=== PATIENT | female | born 1970 | race Caucasian/White ===

== ENCOUNTER 2017-12-22 10:09 | Emergency (ER) | payer MEDICARE ==
[2017-12-22] MEDS ORDERED: PROVENTIL 2.5 MG/3 ML NEB IH ONE ×2 (10:36→10:51)
--- NOTE | 2017-12-22 10:53 | ERPHSYRPT ---
- History of Present Illness Time Seen by Provider: 12/22/17 10:16 Source: patient Patient Subjective Stated Complaint: increasing cough for two weeks. hx asthma. Triage Nursing Assessment: ambulated to room per self. audible wheezes heard throughout. skin w/d, color normal, resp slightly labored. denies fever Physician History: CC: coughing Hx: 47 y/o smoker with cough for two weeks. She has hx of DM, asthma. Son had flu. She uses nebs. Has prednisone at home but does not like to take it as her sugars increase. She takes Tujeo and sees [facility]. She is a pt of [facility]. No fever or chills. She has chronic pain syndrome. Allergies/Adverse Reactions: carisoprodol [From Soma] Allergy (Intermediate, Verified 12/22/17 10:26) codeine [Codeine] Allergy (Verified 12/22/17 10:26) cyclobenzaprine HCl [From Flexeril] Allergy (Verified 12/22/17 10:26) duloxetine [From Cymbalta] Allergy (Verified 12/22/17 10:26) morphine Allergy (Verified 12/22/17 10:26) Penicillins Allergy (Verified 12/22/17 10:26) Sulfa (Sulfonamide Antibiotics) [Sulfa(Sulfonamide Antibiotics)] Allergy ( Verified 12/22/17 10:26) glipizide Adverse Reaction (Verified 12/22/17 11:12) metformin Adverse Reaction (Verified 12/22/17 11:12) Home Medications: Albuterol 2.5 mg/3 ml Neb [Proventil 2.5 mg/3 ml Neb] 2.5 mg IH .PRN 05/16 [History] Lorazepam 1 mg [Ativan 1 MG] 1 mg PO BID 05/16/14 [History] Montelukast Sodium 10 mg [Singulair 10 MG] 10 mg PO DAILY 05/16/14 [History] Albuterol 8 gm Mdi Hfa [Ventolin Hfa MDI] 2 puff IH QID 11/21/16 [History] Clotrimazole Cream 30 gm [Lotrimin Cream 30 gm] 30 gm TP .PRN 11/21/16 [ History] Hydrocodone/APAP 10/325 mg [[place] 10/325 MG Tablet] 1 tab PO Q6H PRN PRN 11/21/16 [History] Omeprazole 20 MG [Prilosec 20 mg] 40 mg PO BID 11/21/16 [History] Prednisone 20 mg [Deltasone 20 mg] 20 mg PO DAILY 11/21/16 [History] Ferrous Sulfate 325 mg [Feosol 325 mg] 325 mg PO DAILY 12/22/17 [History] Fluticasone/Vilanterol [Breo Ellipta 200-25 Mcg INH] 1 ea IH DAILY 12/22/17 [ History] Insulin Glargine,Hum.rec.anlog [Toujeo Solostar] 32 units SQ DAILY 12/22/17 [ History] Lisinopril [Zestril] 2.5 mg PO DAILY 12/22/17 [History] Rosuvastatin Calcium [Rosuvastatin Calcium] 5 mg PO HS 12/22/17 [History] Venlafaxine HCl [Venlafaxine HCl ER] 75 mg PO DAILY 12/22/17 [History] Hx Tetanus, Diphtheria Vaccination/Date Given: No Hx Influenza Vaccination/Date Given: No Hx Pneumococcal Vaccination/Date Given: No - Review of Systems Constitutional: Fatigue, Malaise, No Fever, No Chills Eyes: No Symptoms Ears, Nose, & Throat: No Symptoms Respiratory: Cough, Wheezing Cardiac: No Chest Pain Abdominal/Gastrointestinal: No Abdominal Pain, No Nausea, No Vomiting Skin: No Rash Neurological: No Headache All Other Systems: Reviewed and Negative - Past Medical History Pertinent Past Medical History: Yes Neurological History: No Pertinent History ENT History: No Pertinent History Cardiac History: Hypertension Respiratory History: Asthma, COPD Endocrine Medical History: No Pertinent History, Diabetes Type II, Liver Disease Musculoskeletal History: Other GI Medical History: No Pertinent History History: No Pertinent History Psycho-Social History: No Pertinent History Female Reproductive Disorders: No Pertinent History Other Medical History: L SPINE FUSION 2010; R LE SURGERY AFTER WORK INJURY - Past Surgical History Past Surgical History: Yes Gastrointestinal: Cholecystectomy Musculoskeletal: Orthopedic Surgery Female Surgical History: Section, Tubal Ligation Other Surgical History: leg, back, 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 rt leg cadav. lumbar cadav bones - Social History Smoking Status: Current every day smoker How long have you smoked: 16 Exposure to second hand smoke: Yes Drug Use: none Patient Lives Alone: No Significant Family History: no pertinent family hx - Female History Hx Now: No - Nursing Vital Signs Nursing Vital Signs: Initial Vital Signs Temperature 98.4 F 12/22/17 10:16 Pulse Rate 92 H 12/22/17 10:16 Respiratory Rate 20 12/22/17 10:16 Blood Pressure 139/67 12/22/17 10:16 O2 Sat by Pulse Oximetry 92 L 12/22/17 10:16 Pain Scale Pain Intensity 0 - Physical Exam General Appearance: alert, obese, other (pleasant lady) Eye Exam: PERRL/EOMI Ears, Nose, Throat Exam: normal ENT inspection, moist mucous membranes Neck Exam: normal inspection, non-tender, supple Respiratory Exam: wheezing (scattered all lung [place]), No respiratory distress Cardiovascular Exam: regular rate/rhythm Gastrointestinal/Abdomen Exam: soft, No tenderness, No distention Neurologic Exam: alert, oriented x 3, cooperative, sensation nml, No motor deficits Skin Exam: warm, dry, No rash SpO2 Interpretation: normal SpO2: 95 Oxygen Delivery: Room Air - Course Nursing assessment & vital signs reviewed: Yes Ordered Tests: Active Orders 24 hr Category Date Time Status Accucheck STAT Care 12/22/17 10:36 Active IV Insertion STAT Care 12/22/17 11:32 Active CHEST 2 VIEWS (PA AND LAT) Stat Exams 12/22/17 11:04 Completed BLOOD CULTURE Stat Lab 12/22/17 11:31 Received CBC W DIFF Stat Lab 12/22/17 11:26 Completed CMP Stat Lab 12/22/17 11:31 Completed Glucose,Critical Care Urgent Lab 12/22/17 11:00 Completed Lactic Acid Stat Lab 12/22/17 11:04 Results MAGNESIUM Stat Lab 12/22/17 11:31 Completed VENOUS BLOOD GAS Urgent Lab 12/22/17 11:00 Completed Respiratory Nebulizer STAT RT 12/22/17 10:36 Active Respiratory Nebulizer STAT RT 12/22/17 11:45 Active Medication Summary Generic Name Dose Route Start Last Admin Trade Name Freq PRN Reason Stop Dose Admin Sodium Chloride 1,000 mls @ 200 mls/hr 12/22/17 11:15 12/22/17 11:41 Sodium Chloride 0.9% 1000 Ml IV 03/21/18 11:14 200 mls/hr .Q5H JAYME Administration Discontinued Medications Generic Name Dose Route Start Last Admin Trade Name Felisha PRN Reason Stop Dose Admin Albuterol Sulfate 2.5 mg 12/22/17 10:36 Proventil 2.5 Mg/3 Ml Neb IH 12/22/17 10:37 STAT ONE Albuterol Sulfate Confirm 12/22/17 10:51 Proventil 2.5 Mg/3 Ml Neb Administered 12/22/17 10:52 Dose 2.5 mg IH .STK-MED ONE Albuterol/Ipratropium 3 ml 12/22/17 11:45 Duoneb 0.5-3 Mg/3 Ml Neb IH 12/22/17 11:46 STAT ONE Albuterol/Ipratropium Confirm 12/22/17 11:45 Duoneb 0.5-3 Mg/3 Ml Neb Administered 12/22/17 11:46 Dose 3 ml IH .STK-MED ONE Insulin Aspart 10 unit 12/22/17 11:05 12/22/17 11:41 Novolog Insulin SQ 12/22/17 11:06 10 unit STAT ONE Administration Insulin Aspart Confirm 12/22/17 11:37 Novolog Insulin Administered 12/22/17 11:38 Dose 10 unit .ROUTE .STK-MED ONE Prednisone 40 mg 12/22/17 12:56 Deltasone 20 Mg PO 12/22/17 12:57 STAT ONE Lab/Rad Data: Laboratory Result Diagrams 12/22/17 11:26 12/22/17 11:31 Laboratory Results 12/22/17 12/22/17 12/22/17 Range/Units 11:40 11:31 11:26 WBC 6.8 (4.0-10.5) K/mm3 RBC 5.04 (4.1-5.4) M/mm3 Hgb 13.4 (12.0-16.0) gm/dl Hct 42.7 (35-47) % MCV 84.7 (78-100) fl MCH 26.6 (26-32) pg MCHC 31.4 L (32-36) g/dl RDW 13.5 (11.5-14.0) % Plt Count 218 (150-450) K/mm3 MPV 12.7 H (6-9.5) fl Gran % 67.1 H (36.0-66.0) % Lymphocytes % 24.8 (24.0-44.0) % Monocytes % 5.0 (0.0-12.0) % Eosinophils % 2.5 (0.00-5.0) % Basophils % 0.6 (0.0-0.4) % Basophils # 0.04 (0-0.4) VBG pH (7.32-7.42) VBG pCO2 at Pat Temp (42-55) mm/Hg VBG pO2 at Pat Temp (25-40) mm/Hg VBG HCO3 (22-28) meq/L VBG O2 Sat ([place]) (95-100) VBG Base Excess (-2.0-2.0) VBG Hemoglobin VBG Carboxyhemoglobin (0.0-6.9) % T HGB POC Potassium (3.5-5.1) Glucose 410 H (70-110) Sodium 136 (136-145) mEq/L Potassium 4.1 (3.5-5.1) mEq/L Chloride 97 L (98-107) mEq/L Carbon Dioxide 27.0 (21-32) mEq/L Anion Gap 15.7 H (5-15) MEQ/L BUN 9 (9-20) mg/dL Creatinine 1.03 (0.55-1.30) mg/dl Estimated GFR > 60 ML/MIN Lactic Acid (0.4-2.0) Calcium 9.0 (8.5-10.1) mg/dL Magnesium 1.7 L (1.8-2.4) mg/dL Total Bilirubin 0.40 (0.2-1.0) mg/dL AST 30 (15-37) U/L ALT 35 (12-78) U/L Alkaline Phosphatase 98 (46-116) U/L Serum Total Protein 7.7 (6.4-8.2) gm/dL Albumin 3.6 (3.4-5.0) g/dL Influenza Type A Ag NEGATIVE (NEGATIVE) Influenza Type B Ag NEGATIVE (NEGATIVE) RSV (PCR) NEGATIVE (Negative) 12/22/17 12/22/17 Range/Units 11:04 11:00 WBC (4.0-10.5) K/mm3 RBC (4.1-5.4) M/mm3 Hgb (12.0-16.0) gm/dl Hct (35-47) % MCV (78-100) fl MCH (26-32) pg MCHC (32-36) g/dl RDW (11.5-14.0) % Plt Count (150-450) K/mm3 MPV (6-9.5) fl Gran % (36.0-66.0) % Lymphocytes % (24.0-44.0) % Monocytes % (0.0-12.0) % Eosinophils % (0.00-5.0) % Basophils % (0.0-0.4) % Basophils # (0-0.4) VBG pH 7.39 (7.32-7.42) VBG pCO2 at Pat Temp 41 L (42-55) mm/Hg VBG pO2 at Pat Temp 40 (25-40) mm/Hg VBG HCO3 24.8 (22-28) meq/L VBG O2 Sat ([place]enzie) 82.4 L (95-100) VBG Base Excess -0.2 (-2.0-2.0) VBG Hemoglobin 14.0 VBG Carboxyhemoglobin 6.3 (0.0-6.9) % T HGB POC Potassium 4.0 (3.5-5.1) Glucose 417 H (70-110) Sodium (136-145) mEq/L Potassium (3.5-5.1) mEq/L Chloride (98-107) mEq/L Carbon Dioxide (21-32) mEq/L Anion Gap (5-15) MEQ/L BUN (9-20) mg/dL Creatinine (0.55-1.30) mg/dl Estimated GFR ML/MIN Lactic Acid 3.6 H (0.4-2.0) Calcium (8.5-10.1) mg/dL Magnesium (1.8-2.4) mg/dL Total Bilirubin (0.2-1.0) mg/dL AST (15-37) U/L ALT (12-78) U/L Alkaline Phosphatase (46-116) U/L Serum Total Protein (6.4-8.2) gm/dL Albumin (3.4-5.0) g/dL Influenza Type A Ag (NEGATIVE) Influenza Type B Ag (NEGATIVE) RSV (PCR) (Negative) - Progress Progress Note: 12/22/17 10:50 She has multiple allergies. She requests Z pack. She needs prednisone. Discussed smoking cessation. Sugar high. Will consult her endocrine on short term acute management at home while she is on steroids. 12/22/17 13:00 Pt declines admission here. Explained her sugar is high and likely to get higher. She has elevated lactic acid and is at risk for more severe infection. She understands but has family issues at home and plans to go home. Spoke to BUSINESS SUPPORT SPECIALIST Martha Lowe who advised with high sugar, steroids, increase Tajeo to 42 units daily and use humalog 15 units AC and as a sliding scale moderate. Instr given. Counseled pt/family regarding: lab results, diagnosis, need for follow-up, rad results, smoking cessation - Departure Time of Disposition: 13:01 Departure Disposition: Home Clinical Impression: Acute asthmatic bronchitis Condition: Fair Critical Care Time: No Referrals: LIV BARROSO [Primary Care Provider] - MARTHA LOWE BUSINESS SUPPORT SPECIALIST [NON-STAFF PHY W/O PRIVILEGES] - Instructions: Acute Bronchitis, Adult (DC), Hyperglycemia, Adult (DC), Cough, Adult (DC), Quitting Smoking Additional Instructions: Increase Tajeo to 42 units daily while on prednisone. Follow up with BUSINESS SUPPORT SPECIALIST Martha Lowe, diabetic in next week. Use 15 units humalog before each meal. Use humalog moderate sliding scale every 4 hours as needed. Rx zithromax- next dose tomorrow. Rx prednisone 40 mg daily for 5 days- next dose tomorrow. Use your albuterol nebs every 4 hours. Stop smoking. Return for problems or concerns. Prescriptions: Azithromycin 250 mg [Zithromax 250 MG TABLET] 1 tab PO DAILY #4 tablet Insulin Lispro [Humalog Kwikpen U-100] 0 unit SQ UD #1 insuln.pen
[2017-12-22] MEDS ORDERED: NovoLOG Insulin SQ ONE (11:05)
[2017-12-22 11:06] LABS: VBG BASE EXCESS -0.2 (-2.0-2.0); VBG CARBOXYHEMOGLOBIN 6.3 % T HGB (0.0-6.9); VBG HCO3- 24.8 meq/L (22-28); VBG O2 SATURATION 82.4 (95-100); VBG pH 7.39 (7.32-7.42)
[2017-12-22 11:07] LABS: Lactic Acid 3.6 (0.4-2.0)
[2017-12-22] MEDS ORDERED: Sodium Chloride 0.9% 1000 ML 1,000 ML IV SCH (11:15)
[2017-12-22 11:28] LABS: BASOPHIL % 0.6 % (0.0-0.4); Basophil (Absolute #) 0.04 (0-0.4); Eosinophil % 2.5 % (0.00-5.0); Eosinophil (Absolute #) 0.17 (0-0.5); Granulocyte Absolute (ANC) 4.58 (1.4-6.9); Granulocytes % 67.1 % (36.0-66.0); Hematocrit 42.7 % (35-47); Hemoglobin 13.4 gm/dl (12.0-16.0); Lymphocyte (Absolute #) 1.69 (1.0-4.6); Lymphocytes % 24.8 % (24.0-44.0); Mean Cell Volume 84.7 fl (78-100); Mean Corpuscular Hemoglobin 26.6 pg (26-32); Mean Corpuscular Hgb Concent. 31.4 g/dl (32-36); Mean Platelet Volume 12.7 fl (6-9.5); Monocyte (Absolute #) 0.34 (0.0-1.3); Platelet Count 218 K/mm3 (150-450); Red Blood Count 5.04 M/mm3 (4.1-5.4); Red Cell Distribution Width 13.5 % (11.5-14.0); White Blood Count 6.8 K/mm3 (4.0-10.5)
[2017-12-22] MEDS ORDERED: Sodium Chloride 0.9% 1000 ML 1,000 ML ONE (11:37)
[2017-12-22] MEDS ORDERED: NovoLOG Insulin ONE (11:37)
[2017-12-22] MEDS ORDERED: DUONEB 0.5-3 MG/3 ml Neb IH ONE ×2 (11:45)
--- NOTE | 2017-12-22 11:46 | XRAY ---
Indication: Short of breath and cough 2 weeks. Comparison: October 10, 2014. PA/lateral chest again demonstrates normal heart, lungs, and bony thorax with right base calcified granuloma. No new/acute findings.
[2017-12-22 11:59] LABS: ALBUMIN 3.6 g/dL (3.4-5.0); ALKALINE PHOSPHATASE 98 U/L (46-116); ANION GAP 15.7 MEQ/L (5-15); BLOOD UREA NITROGEN 9 mg/dL (9-20); CHLORIDE 97 mEq/L (98-107); Creatinine 1 1.03 mg/dl (0.55-1.30); EST GLOMERULAR FILTRATION RATE > 60 ML/MIN; Glucose 410 MG/DL (70-110); Potassium 4.1 mEq/L (3.5-5.1); SGOT/AST 30 U/L (15-37); SGPT/ALT 35 U/L (12-78); SODIUM 136 mEq/L (136-145); Total Protein 7.7 gm/dL (6.4-8.2)
[2017-12-22 12:35] VITALS: PULSE 89
[2017-12-22] MEDS ORDERED: DELTASONE 20 MG PO ONE (12:56)
[2017-12-22 12:59] LABS: INFLUENZA A NEGATIVE (NEGATIVE); INFLUENZA B NEGATIVE (NEGATIVE); RESPIRATORY SYNCTIAL VIRUS NEGATIVE (Negative)
[2017-12-22] MEDS ORDERED: Zithromax 250 MG TABLET PO ONE (13:02)
[2017-12-22] MEDS ORDERED: DELTASONE 20 MG ONE (13:03)
[2017-12-22] MEDS ORDERED: Zithromax 250 MG TABLET ONE (13:03)
[2017-12-22 13:30] VITALS: BP 129/72; O2SAT 99
== END 2017-12-22 13:30 | disposition home or self-care (01) ==
LOC: ED 10:09
DX: J45.909 Unspecified asthma, uncomplicated (principal); I10 Essential (primary) hypertension; E11.9 Type 2 diabetes mellitus without complications; Z79.899 Other long term (current) drug therapy
CPT/HCPCS: 36000; 36415; 71046; 80053; 82805; 82947; 82962; 83605; 83735; 85025; 87040; 87631; 94640; 96372; 99284; A9270-GY

== ENCOUNTER 2018-02-06 12:06 | Emergency (ER) | payer MEDICARE ==
[~2018-02-06 12:06] MED LIST: BENADRYL 50 MG/ML ONE; DUONEB 0.5-3 MG/3 ml Neb IH ONE; EPINEPHRINE 1MG/ML AMP ONE; Pepcid 20 MG VIAL IV ONE; Sodium Chloride 0.9% 1000 ML 1,000 ML ONE; solu-MEDROL 125 MG ONE
[2018-02-06] MEDS ORDERED: Sodium Chloride 0.9% 1000 ML 1,000 ML IV STA (12:14)
[2018-02-06] MEDS ORDERED: EPINEPHRINE 1MG/ML AMP IM ONE (12:14)
[2018-02-06] MEDS ORDERED: BENADRYL 50 MG/ML IV ONE (12:14)
[2018-02-06] MEDS ORDERED: PROVENTIL 2.5 MG/3 ML NEB IH ONE ×4 (12:14→14:19)
[2018-02-06] MEDS ORDERED: solu-MEDROL 125 MG IV ONE (12:14)
[2018-02-06] MEDS ORDERED: Pepcid 20 MG VIAL IV ONE (12:14)
[2018-02-06] MEDS ORDERED: DUONEB 0.5-3 MG/3 ml Neb IH ONE (12:14)
[2018-02-06] MEDS ORDERED: Zofran 4 MG/2 ML VIAL IV ONE (12:18)
[2018-02-06] MEDS ORDERED: Zofran 4 MG/2 ML VIAL ONE (12:20)
[2018-02-06 12:23] LABS: BASOPHIL % 0.3 % (0.0-0.4); Basophil (Absolute #) 0.03 (0-0.4); Eosinophil % 2.3 % (0.00-5.0); Eosinophil (Absolute #) 0.25 (0-0.5); Granulocyte Absolute (ANC) 6.72 (1.4-6.9); Granulocytes % 62.9 % (36.0-66.0); Hematocrit 43.9 % (35-47); Hemoglobin 14.5 gm/dl (12.0-16.0); Lymphocyte (Absolute #) 2.98 (1.0-4.6); Lymphocytes % 27.9 % (24.0-44.0); Mean Cell Volume 84.7 fl (78-100); Mean Platelet Volume 12.6 fl (6-9.5); Monocytes % 6.6 % (0.0-12.0); Platelet Count 243 K/mm3 (150-450); Red Blood Count 5.18 M/mm3 (4.1-5.4); Red Cell Distribution Width 13.8 % (11.5-14.0); White Blood Count 10.7 K/mm3 (4.0-10.5)
--- NOTE | 2018-02-06 12:23 | ERPHSYRPT ---
- History of Present Illness Time Seen by Provider: 02/06/18 12:14 Source: patient Physician History: CC: short of air Hx: 47 y/o patient of Dr Salas started buprenoprhine patch for first dose this AM. Later in AM began having trouble breathing, coughing, wheezing, nausea. No itching or rash. She feels like she can not breath. No chest pain. She had prior reaction to morphine. She has chronic pain syndrome. She has hx of diabetes Allergies/Adverse Reactions: carisoprodol [From Soma] Allergy (Intermediate, Verified 02/06/18 12:35) buprenorphine Allergy (Verified 02/06/18 12:35) codeine [Codeine] Allergy (Verified 02/06/18 12:35) cyclobenzaprine HCl [From Flexeril] Allergy (Verified 02/06/18 12:35) duloxetine [From Cymbalta] Allergy (Verified 02/06/18 12:35) morphine Allergy (Verified 02/06/18 12:35) Penicillins Allergy (Verified 02/06/18 12:35) Sulfa (Sulfonamide Antibiotics) [Sulfa(Sulfonamide Antibiotics)] Allergy ( Verified 02/06/18 12:35) glipizide Adverse Reaction (Verified 02/06/18 12:35) metformin Adverse Reaction (Verified 02/06/18 12:35) Home Medications: Albuterol 2.5 mg/3 ml Neb [Proventil 2.5 mg/3 ml Neb] 2.5 mg IH .PRN 05/16 [History] Lorazepam 1 mg [Ativan 1 MG] 1 mg PO BID 05/16/14 [History] Montelukast Sodium 10 mg [Singulair 10 MG] 10 mg PO DAILY 05/16/14 [History] Albuterol 8 gm Mdi Hfa [Ventolin Hfa MDI] 2 puff IH QID 11/21/16 [History] Clotrimazole Cream 30 gm [Lotrimin Cream 30 gm] 30 gm TP .PRN 11/21/16 [ History] Hydrocodone/APAP 10/325 mg [[place] 10/325 MG Tablet] 1 tab PO Q6H PRN PRN 11/21/16 [History] Omeprazole 20 MG [Prilosec 20 mg] 40 mg PO BID 11/21/16 [History] Ferrous Sulfate 325 mg [Feosol 325 mg] 325 mg PO DAILY 12/22/17 [History] Fluticasone/Vilanterol [Breo Ellipta 200-25 Mcg INH] 1 ea IH DAILY 12/22/17 [ History] Insulin Glargine,Hum.rec.anlog [Toujeo Solostar] 32 units SQ DAILY 12/22/17 [ History] Lisinopril [Zestril] 2.5 mg PO DAILY 12/22/17 [History] Rosuvastatin Calcium [Rosuvastatin Calcium] 5 mg PO HS 12/22/17 [History] Venlafaxine HCl [Venlafaxine HCl ER] 75 mg PO DAILY 12/22/17 [History] Hx Tetanus, Diphtheria Vaccination/Date Given: No Hx Influenza Vaccination/Date Given: No Hx Pneumococcal Vaccination/Date Given: No - Review of Systems Constitutional: No Fever, No Chills Eyes: No Symptoms Ears, Nose, & Throat: No Symptoms Respiratory: Cough, Dyspnea, Wheezing Cardiac: No Chest Pain Abdominal/Gastrointestinal: Nausea, Vomiting (dryheaves), No Diarrhea Skin: No Pruritis, No Rash Neurological: No Headache All Other Systems: Reviewed and Negative - Past Medical History Pertinent Past Medical History: Yes Neurological History: No Pertinent History ENT History: No Pertinent History Cardiac History: Hypertension Respiratory History: Asthma, COPD Endocrine Medical History: No Pertinent History, Diabetes Type II, Liver Disease Musculoskeletal History: Other GI Medical History: No Pertinent History History: No Pertinent History Psycho-Social History: No Pertinent History Female Reproductive Disorders: No Pertinent History Other Medical History: L SPINE FUSION 2010; R LE SURGERY AFTER WORK INJURY - Past Surgical History Past Surgical History: Yes Gastrointestinal: Cholecystectomy Musculoskeletal: Orthopedic Surgery Female Surgical History: Section, Tubal Ligation Other Surgical History: leg, back, 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 rt leg cadav. lumbar cadav bones - Social History Smoking Status: Current every day smoker How long have you smoked: 16 Exposure to second hand smoke: Yes Drug Use: none Patient Lives Alone: No Significant Family History: no pertinent family hx - Female History Hx Now: No - Nursing Vital Signs Nursing Vital Signs: Initial Vital Signs Temperature 97.4 F 04/06/18 12:15 Pulse Rate 82 02/06/18 12:15 Respiratory Rate 34 H 02/06/18 12:15 Blood Pressure 122/88 02/06/18 12:15 O2 Sat by Pulse Oximetry 100 02/06/18 12:15 Pain Scale Pain Intensity 0 - Physical Exam General Appearance: alert, obese, other (arrived coughing, wheezing, anxious) Eye Exam: PERRL/EOMI Ears, Nose, Throat Exam: normal ENT inspection, moist mucous membranes Neck Exam: normal inspection, non-tender, supple Respiratory Exam: respiratory distress, wheezing Cardiovascular Exam: regular rate/rhythm, No tachycardia Gastrointestinal/Abdomen Exam: soft, No tenderness, No distention Extremity Exam: normal inspection, normal range of motion, pedal edema (trace), No calf tenderness Neurologic Exam: alert, oriented x 3, cooperative, No motor deficits Skin Exam: warm, diaphoresis SpO2 Interpretation: normal SpO2: 98 Oxygen Delivery: Room Air - Course Nursing assessment & vital signs reviewed: Yes EKG Interpreted by Me: RATE (83), Sinus Rhythm, Left [place] Deviation, LAFB, Other (no change from prior tracing) Ordered Tests: Active Orders 24 hr Category Date Time Status Accucheck STAT Care 02/06/18 12:14 Active CO2 Monitoring STAT Care 02/06/18 12:25 Active Proration Clerk STAT Care 02/06/18 12:15 Active EKG-ER Only STAT Care 02/06/18 12:14 Active IV Insertion STAT Care 02/06/18 12:14 Active IV Insertion-2nd Peripheral STAT Care 02/06/18 12:25 Active Pulse Oximetry (ED) STAT Care 02/06/18 12:14 Active 1800 Calorie ADA Diet 02/06/18 Lunch Active CHEST 1 VIEW (PORTABLE) Stat Exams 02/06/18 12:14 Completed CBC W DIFF Stat Lab 02/06/18 12:21 Completed CMP Stat Lab 02/06/18 12:21 Completed Respiratory Nebulizer STAT RT 02/06/18 12:15 Completed Respiratory Nebulizer STAT RT 02/06/18 13:23 Active Medication Summary Discontinued Medications Generic Name Dose Route Start Last Admin Trade Name Freq PRN Reason Stop Dose Admin Albuterol Sulfate 2.5 mg 02/06/18 12:14 02/06/18 12:20 Proventil 2.5 Mg/3 Ml Neb IH 02/06/18 12:15 2.5 mg STAT ONE Administration Albuterol Sulfate Confirm 02/06/18 12:17 Proventil 2.5 Mg/3 Ml Neb Administered 02/06/18 12:18 Dose 2.5 mg IH .STK-MED ONE Albuterol Sulfate 2.5 mg 02/06/18 13:23 Proventil 2.5 Mg/3 Ml Neb IH 02/06/18 13:24 STAT ONE Albuterol Sulfate Confirm 02/06/18 14:19 Proventil 2.5 Mg/3 Ml Neb Administered 02/06/18 14:20 Dose 2.5 mg IH .STK-MED ONE Albuterol/Ipratropium 3 ml 02/06/18 12:14 02/06/18 12:10 Duoneb 0.5-3 Mg/3 Ml Neb IH 02/06/18 12:15 3 ml STAT ONE Administration Diphenhydramine HCl 50 mg 02/06/18 12:14 02/06/18 12:18 Benadryl 50 Mg/Ml IV 02/06/18 12:15 50 mg STAT ONE Administration Epinephrine HCl 0.3 mg 02/06/18 12:14 02/06/18 12:18 Epinephrine 1mg/Ml Amp IM 02/06/18 12:15 0.3 mg STAT ONE Administration Famotidine 20 mg 02/06/18 12:14 02/06/18 12:18 Pepcid 20 Mg Vial IV 02/06/18 12:15 20 mg STAT ONE Administration Sodium Chloride 1,000 mls @ 999 mls/hr 02/06/18 12:14 02/06/18 12:18 Sodium Chloride 0.9% 1000 Ml IV 02/06/18 13:14 999 mls/hr .Q1H1M STA Administration Methylprednisolone Sodium Succinate 125 mg 02/06/18 12:14 02/06/18 12:18 Solu-Medrol 125 Mg IV 02/06/18 12:15 125 mg STAT ONE Administration Ondansetron HCl 4 mg 02/06/18 12:18 02/06/18 12:20 Zofran 4 Mg/2 Ml Vial IV 02/06/18 12:19 4 mg STAT ONE Administration Ondansetron HCl Confirm 02/06/18 12:20 Zofran 4 Mg/2 Ml Vial Administered 02/06/18 12:21 Dose 4 mg .ROUTE .STK-MED ONE Lab/Rad Data: Laboratory Result Diagrams 02/06/18 12:21 02/06/18 12:21 Laboratory Results 02/06/18 02/06/18 Range/Units 12:21 12:21 WBC 10.7 H (4.0-10.5) K/mm3 RBC 5.18 (4.1-5.4) M/mm3 Hgb 14.5 (12.0-16.0) gm/dl Hct 43.9 (35-47) % MCV 84.7 (78-100) fl MCH 28.0 (26-32) pg MCHC 33.0 (32-36) g/dl RDW 13.8 (11.5-14.0) % Plt Count 243 (150-450) K/mm3 MPV 12.6 H (6-9.5) fl Gran % 62.9 (36.0-66.0) % Eos # (Auto) 0.25 (0-0.5) Absolute Lymphs (auto) 2.98 (1.0-4.6) Absolute Monos (auto) 0.70 (0.0-1.3) Lymphocytes % 27.9 (24.0-44.0) % Monocytes % 6.6 (0.0-12.0) % Eosinophils % 2.3 (0.00-5.0) % Basophils % 0.3 (0.0-0.4) % Absolute Granulocytes 6.72 (1.4-6.9) Basophils # 0.03 (0-0.4) Sodium 140 (137-145) mmol/L Potassium 3.9 (3.5-5.1) mmol/L Chloride 103 (98-107) mmol/L Carbon Dioxide 23 (22-30) mmol/L Anion Gap 17.1 H (5-15) MEQ/L BUN 9 (7-17) mg/dL Creatinine 0.57 (0.52-1.04) mg/dL Estimated GFR > 60.0 ML/MIN Glucose 203 H (74-106) mg/dL Calcium 9.7 (8.4-10.2) mg/dL Total Bilirubin 0.40 (0.2-1.3) mg/dL AST 36 (14-36) U/L ALT 30 (0-35) U/L Alkaline Phosphatase 88 (38-126) U/L Serum Total Protein 7.2 (6.3-8.2) g/dL Albumin 4.3 (3.5-5.0) g/dL - Progress Progress Note: 02/06/18 12:22 She has wheezing and dyspnea and vomiting. She feels this is allergic reaction. EPI IM, nebs, benadryl, pepcid, solu mdedrol, zofran given on arrival. Starting to improve. Buprenoprhine patch removed. 02/06/18 12:40 CXR: Portable apical lordotic chest again demonstrates normal heart, lungs, and bony thorax with incidental right base calcified granuloma. 02/06/18 13:24 She is resting and in no distress. She is hungry. She called a ride. Minimal wheeze residual. She appears to have some degree of sleep apnea with classic build, desats during sleep. ETCO2 35-45. Advised she see [employer] FIELD MANAGER [place] to arrange a sleep study. Will feed, repeat neb, and observe prior to release. 02/06/18 15:01 Ambulated well. Saturation good. Breathing easy. Wants to go home. Will release. Counseled pt/family regarding: lab results, diagnosis, need for follow-up, rad results, smoking cessation - Departure Time of Disposition: 15:01 Departure Disposition: Home Clinical Impression: acute asthma attack, Anxiety, Allergic reaction caused by a drug Condition: Fair Critical Care Time: No Referrals: LIV CHOUDHARY [Primary Care Provider] - Instructions: Asthma, Adult (DC), Obstructive Sleep Apnea, Adult (DC), Adverse Drug Reactions, Adult (DC) Additional Instructions: No driving today. No buprenorphine. Notifiy Dr Salas. Rx pepcid. Rx prednisone. Return for problems or concerns. You should get a sleep apnea test. Prescriptions: Famotidine 20 mg [Pepcid 20 MG] 1 tab PO BID #14 tablet Prednisone 20 mg [Deltasone 20 mg] 2 tab PO DAILY #10 tablet
--- NOTE | 2018-02-06 12:35 | XRAY ---
Indication: Short of breath. Comparison: December 22, 2017. Portable apical lordotic chest again demonstrates normal heart, lungs, and bony thorax with incidental right base calcified granuloma.
[2018-02-06 12:43] LABS: ALBUMIN 4.3 g/dL (3.5-5.0); ALKALINE PHOSPHATASE 88 U/L (38-126); ANION GAP 17.1 MEQ/L (5-15); BLOOD UREA NITROGEN 9 mg/dL (7-17); CHLORIDE 103 mmol/L (98-107); Calcium 9.7 mg/dL (8.4-10.2); Carbon Dioxide 23 mmol/L (22-30); Creatinine 1 0.57 mg/dL (0.52-1.04); Glucose 203 mg/dL (74-106); Potassium 3.9 mmol/L (3.5-5.1); SGOT/AST 36 U/L (14-36); SGPT/ALT 30 U/L (0-35); SODIUM 140 mmol/L (137-145); Total Protein 7.2 g/dL (6.3-8.2)
[2018-02-06 14:56] VITALS: BP 148/64; PULSE 95
[2018-02-06 15:02] VITALS: O2SAT 98
== END 2018-02-06 15:10 | disposition home or self-care (01) ==
LOC: ED 12:06
DX: J45.909 Unspecified asthma, uncomplicated (principal); F41.9 Anxiety disorder, unspecified; R11.2 Nausea with vomiting, unspecified; T40.4X5A Adverse effect of other synthetic narcotics, initial encounter; Z79.899 Other long term (current) drug therapy
CPT/HCPCS: 36000; 36415; 71045; 80053; 82962; 85025; 93005; 93041; 94250; 94640; 94770; 96360; 96374; 96375; 99284; J0171; J1200; J2405; J2930; A9270-GY

== ENCOUNTER 2018-07-25 14:51 | Emergency (ER) | payer MEDICARE ==
[2018-07-25 15:24] VITALS: O2SAT 99
[2018-07-25 16:04] VITALS: BP 106/58; PULSE 76
--- NOTE | 2018-07-25 16:23 | ERPHSYRPT ---
- History of Present Illness Time Seen by Provider: 07/25/18 16:18 Source: patient Exam Limitations: no limitations Patient Subjective Stated Complaint: stepped in a hole and twisted right ankle Triage Nursing Assessment: to room per w/c. skin w/d, color normal. right ankle and foot slightly swollen. normal color foot, warm to touch and good pedal pulse. Physician History: The patient is a 48-year-old obese white female complaining that she stepped in a hole causing her to twist her right ankle and foot today. She denies numbness or tingling. It hurts for her to walk on it. The ankle is swollen. Her past medical history is significant for GERD, asthma, COPD, high cholesterol , hypertension, and diabetes. Occurred: just prior to arrival Reason for Fall: tripped, fell from standing pos Injuries/Pain Location: lower extremity (right ankle) Loss of Consciousness: no loss of consciousness Quality: aching Severity of Pain-Max: moderate Severity of Pain-Current: moderate Modifying Factors: Improves With: nothing Associated Symptoms (Fall): trouble walking Allergies/Adverse Reactions: carisoprodol [From Soma] Allergy (Intermediate, Verified 07/25/18 15:07) buprenorphine Allergy (Verified 07/25/18 15:07) codeine [Codeine] Allergy (Verified 07/25/18 15:07) cyclobenzaprine HCl [From Flexeril] Allergy (Verified 07/25/18 15:07) duloxetine [From Cymbalta] Allergy (Verified 07/25/18 15:07) morphine Allergy (Verified 07/25/18 15:07) Penicillins Allergy (Verified 07/25/18 15:07) Sulfa (Sulfonamide Antibiotics) [Sulfa(Sulfonamide Antibiotics)] Allergy ( Verified 07/25/18 15:07) glipizide Adverse Reaction (Verified 07/25/18 15:07) metformin Adverse Reaction (Verified 07/25/18 15:07) Home Medications: Albuterol 2.5 mg/3 ml Neb [Proventil 2.5 mg/3 ml Neb] 2.5 mg IH .PRN 05/16 [History] Lorazepam 1 mg [Ativan 1 MG] 1 mg PO BID 05/16/14 [History] Montelukast Sodium 10 mg [Singulair 10 MG] 10 mg PO DAILY 05/16/14 [History] Albuterol 8 gm Mdi Hfa [Ventolin Hfa MDI] 2 puff IH QID 11/21/16 [History] Clotrimazole Cream 30 gm [Lotrimin Cream 30 gm] 30 gm TP .PRN 11/21/16 [ History] Hydrocodone/APAP 10/325 mg [[place] 10/325 MG Tablet] 1 tab PO Q6H PRN PRN 11/21/16 [History] Omeprazole 20 MG [Prilosec 20 mg] 40 mg PO BID 11/21/16 [History] Ferrous Sulfate 325 mg [Feosol 325 mg] 325 mg PO DAILY 12/22/17 [History] Fluticasone/Vilanterol [Breo Ellipta 200-25 Mcg INH] 1 ea IH DAILY 12/22/17 [ History] Insulin Glargine,Hum.rec.anlog [[place] Solostar] 32 units SQ DAILY 12/22/17 [ History] Lisinopril [Zestril] 2.5 mg PO DAILY 12/22/17 [History] Rosuvastatin Calcium 5 mg PO HS 12/22/17 [History] Venlafaxine HCl [Venlafaxine HCl ER] 75 mg PO DAILY 12/22/17 [History] Exenatide Microspheres [Bydureon Bcise] 2 mg IJ WEEKLY 07/25/18 [History] Fenofibrate Nanocrystallized [Fenofibrate] 145 mg PO DAILY 07/25/18 [History] [place]-3 Fatty Acids/Fish Oil [Fish Oil 1,000 mg Capsule] 1 ea PO DAILY 07/25/18 [History] Vitamin E 400 unit PO DAILY 07/25/18 [History] Hx Tetanus, Diphtheria Vaccination/Date Given: No Hx Influenza Vaccination/Date Given: No Hx Pneumococcal Vaccination/Date Given: No - Review of Systems Constitutional: No Fever, No Chills Eyes: No Symptoms Ears, Nose, & Throat: No Symptoms Respiratory: No Cough, No Dyspnea Cardiac: No Chest Pain, No Edema, No Syncope Abdominal/Gastrointestinal: No Abdominal Pain, No Nausea, No Vomiting, No Diarrhea Genitourinary Symptoms: No Dysuria Musculoskeletal: Fall, Injury, Joint Pain, Joint Swelling Skin: No Rash Neurological: No Dizziness, No Focal Weakness, No Sensory Changes Psychological: No Symptoms Endocrine: No Symptoms Hematologic/Lymphatic: No Symptoms Immunological/Allergic: No Symptoms All Other Systems: Reviewed and Negative - Past Medical History Pertinent Past Medical History: Yes Neurological History: No Pertinent History ENT History: No Pertinent History Cardiac History: Hypertension Respiratory History: Asthma, COPD Endocrine Medical History: No Pertinent History, Diabetes Type II, Liver Disease Musculoskeletal History: Other GI Medical History: No Pertinent History History: No Pertinent History Psycho-Social History: No Pertinent History Female Reproductive Disorders: No Pertinent History Other Medical History: L SPINE FUSION 2010; R LE SURGERY AFTER WORK INJURY - Past Surgical History Past Surgical History: Yes Gastrointestinal: Cholecystectomy Musculoskeletal: Orthopedic Surgery Female Surgical History: Section, Tubal Ligation Other Surgical History: leg, back, 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 rt leg cadav. lumbar cadav bones - Social History Smoking Status: Current every day smoker How long have you smoked: 19 Exposure to second hand smoke: Yes Drug Use: none Patient Lives Alone: No Significant Family History: no pertinent family hx - Female History Hx Now: No (Pt has hx of tubal ligation) - Nursing Vital Signs Nursing Vital Signs: Initial Vital Signs Temperature 97.8 F 07/25/18 15:01 Pulse Rate 88 07/25/18 15:01 Respiratory Rate 18 07/25/18 15:01 Blood Pressure 137/83 07/25/18 15:01 O2 Sat by Pulse Oximetry 99 07/25/18 15:01 Pain Scale Pain Intensity 7 - [place] Coma Score Best Eye Response ([place]): (4) open spontaneously Best Verbal Response ([place]): (5) oriented Best Motor Response ([place]): (6) obeys commands [place] Total: 15 - Physical Exam General Appearance: no apparent distress, alert Head Injury: no evidence of injury Eye Exam: PERRL/EOMI ENT Exam: airway nml Neck Exam: normal inspection, No tenderness Respiratory/Chest Exam: normal breath sounds, No chest tenderness, No respiratory distress Cardiovascular Exam: normal heart sounds, regular rate/rhythm Gastrointestinal Exam: soft, No tenderness, No distention, No guarding, No ecchymosis Rectal Exam: not done Back Exam: normal inspection, No vertebral tenderness Extremity Exam: swelling (right lateral malleolus), tenderness Neurologic Exam: alert, oriented x 3, cooperative, sensation nml, No motor deficits Skin Exam: normal color, warm, dry SpO2 Interpretation: normal SpO2: 99 Oxygen Delivery: Room Air - Radiology Exams Right Ankle X-ray Interpretation: Interpreted by me, Negative, No Fracture Right Foot X-ray Interpretation: Interpreted by me, Negative, No Fracture Ordered Tests: Active Orders 24 hr Category Date Time Status Cold Application STAT Care 07/25/18 15:03 Active ANKLE (3 VIEWS) Stat Exams 07/25/18 15:25 Taken FOOT (MINIMUM 3 VIEWS) Stat Exams 07/25/18 15:26 Taken - Departure Time of Disposition: 16:22 Departure Disposition: Home Clinical Impression: Right ankle sprain Condition: Stable Critical Care Time: No Referrals: LIV CHOUDHARY [Primary Care Provider] - Additional Instructions: You have a mild right ankle sprain and foot sprain. You may take the Vicodin you already her taking for the pain. Elevate your foot and ankle to keep the swelling down. Apply ice to the area 10-15 minutes at a time as needed. Use Alexis wrap as needed. Follow-up with your primary medical doctor as needed.
--- NOTE | 2018-07-25 22:14 | XRAY ---
Indication: Pain following injury. Comparison: None 3 views of the right ankle demonstrates lateral soft tissue swelling and small spurring of the medial malleolus and plantar calcaneus. No other bony, articular, or soft tissue abnormalities.
--- NOTE | 2018-07-25 22:14 | XRAY ---
Indication: Pain following injury. Comparison: None 3 nonweightbearing views of the right foot demonstrates small plantar heel spur. No other bony, articular, or soft tissue abnormalities.
== END 2018-07-25 16:35 | disposition home or self-care (01) ==
LOC: ED 14:51
DX: S93.401A Sprain of unspecified ligament of right ankle, initial encounter (principal); X50.1XXA Overexertion from prolonged static or awkward postures, initial encounter; Y93.9 Activity, unspecified; Z79.899 Other long term (current) drug therapy
CPT/HCPCS: 73610; 73630; 99284

== ENCOUNTER 2019-05-30 15:55 | Emergency (ER) | payer MEDICARE ==
[2019-05-30 16:26] VITALS: PULSE 82; O2SAT 97
--- NOTE | 2019-05-30 16:52 | ERPHSYRPT ---
- History of Present Illness Time Seen by Provider: 05/30/19 16:49 Patient Subjective Stated Complaint: FEVER, DIARRHEA, ABDOMINAL PAIN, HIGH/LOW BLOOD SUGARS. Triage Nursing Assessment: ALERT & ORIENTED X 3. AMBULATED TO ROOM. BREATHING NONLABORED. SKIN ELASTIC. SKIN TONE WNL. MOUTH MOIST PINK. Physician History: 48-year-old female with significant past medical history of type 2 diabetes mellitus came to the emergency room with 2 days history of fever, chills and diarrhea. Patient is also complaining of generalized weakness, malaise and muscle aches. Timing/Duration: today Severity: moderate Associated Symptoms: fever, loss of appetite, malaise Allergies/Adverse Reactions: carisoprodol [From Soma] Allergy (Intermediate, Verified 07/25/18 15:07) buprenorphine Allergy (Verified 07/25/18 15:07) codeine [Codeine] Allergy (Verified 07/25/18 15:07) cyclobenzaprine HCl [From Flexeril] Allergy (Verified 07/25/18 15:07) duloxetine [From Cymbalta] Allergy (Verified 07/25/18 15:07) morphine Allergy (Verified 07/25/18 15:07) Penicillins Allergy (Verified 07/25/18 15:07) Sulfa (Sulfonamide Antibiotics) [Sulfa(Sulfonamide Antibiotics)] Allergy ( Verified 07/25/18 15:07) glipizide Adverse Reaction (Verified 07/25/18 15:07) metformin Adverse Reaction (Verified 07/25/18 15:07) Home Medications: Albuterol 2.5 mg/3 ml Neb [Proventil 2.5 mg/3 ml Neb] 2.5 mg IH .PRN 05/16 [History] Lorazepam 1 mg [Ativan 1 MG] 1 mg PO BID 05/16/14 [History] Montelukast Sodium 10 mg [Singulair 10 MG] 10 mg PO DAILY 05/16/14 [History] Albuterol 8 gm Mdi Hfa [Ventolin Hfa MDI] 2 puff IH QID 11/21/16 [History] Hydrocodone/APAP 10/325 mg [[place] 10/325 MG Tablet] 1 tab PO Q6H PRN PRN 11/21/16 [History] Ferrous Sulfate 325 mg [Feosol 325 mg] 325 mg PO TID 12/22/17 [History] Fluticasone/Vilanterol [Breo Ellipta 200-25 Mcg INH] 1 ea IH DAILY 12/22/17 [ History] Lisinopril [Zestril] 2.5 mg PO DAILY 12/22/17 [History] [place]-3 Fatty Acids/Fish Oil [Fish Oil 1,000 mg Capsule] 1 ea PO QID 07/25/18 [ History] Vitamin E 400 unit PO BID 07/25/18 [History] Dulaglutide [Trulicity] 0.75 mg SQ UD 05/30/19 [History] Hx Tetanus, Diphtheria Vaccination/Date Given: Yes Hx Influenza Vaccination/Date Given: Yes Hx Pneumococcal Vaccination/Date Given: Yes - Review of Systems Constitutional: No Fever, No Chills Eyes: No Symptoms Ears, Nose, & Throat: No Symptoms Respiratory: No Cough, No Dyspnea Cardiac: No Chest Pain, No Edema, No Syncope Abdominal/Gastrointestinal: Diarrhea, No Abdominal Pain, No Nausea, No Vomiting Genitourinary Symptoms: No Dysuria Musculoskeletal: No Back Pain, No Neck Pain Skin: No Rash Neurological: No Dizziness, No Focal Weakness, No Sensory Changes Psychological: No Symptoms Endocrine: No Symptoms All Other Systems: Reviewed and Negative - Past Medical History Pertinent Past Medical History: Yes Neurological History: No Pertinent History ENT History: No Pertinent History Cardiac History: Hypertension Respiratory History: Asthma, COPD Endocrine Medical History: No Pertinent History, Diabetes Type II, Liver Disease Musculoskeletal History: Other GI Medical History: No Pertinent History History: No Pertinent History Psycho-Social History: No Pertinent History Female Reproductive Disorders: No Pertinent History Other Medical History: L SPINE FUSION 2010; R LE SURGERY AFTER WORK INJURY - Past Surgical History Past Surgical History: Yes Gastrointestinal: Cholecystectomy Musculoskeletal: Orthopedic Surgery Female Surgical History: Section, Tubal Ligation Other Surgical History: 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 rt leg cadav. lumbar cadav bones - Social History Smoking Status: Current every day smoker How long have you smoked: 20 YRS Exposure to second hand smoke: No Drug Use: none Patient Lives Alone: No Significant Family History: no pertinent family hx - Female History Hx Now: No - Nursing Vital Signs Nursing Vital Signs: Initial Vital Signs Temperature 99.3 F 05/30/19 15:56 Pulse Rate 82 05/30/19 15:56 Respiratory Rate 16 05/30/19 15:56 Blood Pressure 133/79 05/30/19 15:56 O2 Sat by Pulse Oximetry 97 05/30/19 15:56 Pain Scale Pain Intensity 7 - Physical Exam General Appearance: no apparent distress, alert Eye Exam: PERRL/EOMI, eyes nml inspection Ears, Nose, Throat Exam: normal ENT inspection, TMs normal, pharynx normal, moist mucous membranes Neck Exam: normal inspection, non-tender, supple, full range of motion Respiratory Exam: normal breath sounds, lungs clear, No respiratory distress Cardiovascular Exam: regular rate/rhythm, normal heart sounds, normal peripheral pulses Gastrointestinal/Abdomen Exam: soft, normal bowel sounds, No tenderness, No mass Back Exam: normal inspection, normal range of motion, No CVA tenderness, No vertebral tenderness Extremity Exam: normal inspection, normal range of motion, pelvis stable Neurologic Exam: alert, oriented x 3, cooperative, normal mood/affect, nml cerebellar function, nml station & gait, sensation nml, No motor deficits Skin Exam: normal color, warm, dry, No rash Lymphatic Exam: No adenopathy SpO2: 97 - Course Nursing assessment & vital signs reviewed: Yes Ordered Tests: Active Orders 24 hr Category Date Time Status CBC W DIFF Stat Lab 05/30/19 17:08 Completed CMP Stat Lab 05/30/19 17:08 Completed CULTURE,URINE Stat Lab 05/30/19 17:29 Received Lactic Acid Urgent Lab 05/30/19 16:46 Results MAGNESIUM Stat Lab 05/30/19 17:08 Completed UA W/RFX UR CULTURE Stat Lab 05/30/19 17:29 Completed Medication Summary Discontinued Medications Generic Name Dose Route Start Last Admin Trade Name Freq PRN Reason Stop Dose Admin Ciprofloxacin 500 mg 05/30/19 17:45 Cipro 500 Mg PO 05/30/19 17:46 BID STA Sodium Chloride 1,000 mls @ 999 mls/hr 05/30/19 16:46 05/30/19 17:07 Sodium Chloride 0.9% 1000 Ml IV 05/30/19 17:46 999 mls/hr .Q1H1M STA Administration Sodium Chloride Confirm 05/30/19 17:04 Sodium Chloride 0.9% 1000 Ml Administered 05/30/19 17:05 Dose 1,000 mls @ ud .ROUTE .K-MED ONE Lab/Rad Data: Laboratory Result Diagrams 05/30/19 17:08 05/30/19 17:08 Laboratory Results 05/30/19 05/30/19 05/30/19 Range/Units 17:29 17:08 17:08 WBC 6.6 (4.0-10.5) K/mm3 RBC 5.19 (4.1-5.4) M/mm3 Hgb 14.4 (12.0-16.0) gm/dl Hct 43.9 (35-47) % MCV 84.6 (78-100) fl MCH 27.7 (26-32) pg MCHC 32.8 (32-36) g/dl RDW 13.5 (11.5-14.0) % Plt Count 158 (150-450) K/mm3 MPV 12.5 H (6-9.5) fl Gran % 67.5 H (36.0-66.0) % Eos # (Auto) 0.10 (0-0.5) Absolute Lymphs (auto) 1.63 (1.0-4.6) Absolute Monos (auto) 0.39 (0.0-1.3) Lymphocytes % 24.8 (24.0-44.0) % Monocytes % 5.9 (0.0-12.0) % Eosinophils % 1.5 (0.00-5.0) % Basophils % 0.3 (0.0-0.4) % Absolute Granulocytes 4.43 (1.4-6.9) Basophils # 0.02 (0-0.4) Sodium 139 (137-145) mmol/L Potassium 3.8 (3.5-5.1) mmol/L Chloride 103 (98-107) mmol/L Carbon Dioxide 28 (22-30) mmol/L Anion Gap 11.9 (5-15) MEQ/L BUN 5 L (7-17) mg/dL Creatinine 0.57 (0.52-1.04) mg/dL Estimated GFR > 60.0 ML/MIN Glucose 231 H (74-106) mg/dL Lactic Acid (0.4-2.0) Calcium 9.1 (8.4-10.2) mg/dL Magnesium 1.6 (1.6-2.3) mg/dL Total Bilirubin 0.40 (0.2-1.3) mg/dL AST 52 H (14-36) U/L ALT 47 H (0-35) U/L Alkaline Phosphatase 90 (38-126) U/L Serum Total Protein 7.1 (6.3-8.2) g/dL Albumin 4.0 (3.5-5.0) g/dL Urine Color YELLOW (YELLOW) Urine Appearance SLIGHTLY CLOUDY (CLEAR) Urine pH 5.0 (5-6) Ur Specific [place] 1.019 (1.005-1.025) Urine Protein 100 (Negative) Urine Ketones NEGATIVE (NEGATIVE) Urine Blood NEGATIVE (0-5) [place]/ul Urine Nitrite POSITIVE (NEGATIVE) Urine Bilirubin NEGATIVE (NEGATIVE) Urine Urobilinogen NEGATIVE (0-1) mg/dL Ur Leukocyte Esterase TRACE (NEGATIVE) Urine WBC (Auto) 26-50 (0-5) /HPF Urine RBC (Auto) NONE (0-2) /HPF U Epithel Cells (Auto) RARE (FEW) /HPF Urine Bacteria (Auto) MODERATE (NEGATIVE) /HPF Urine Mucus (Auto) SLIGHT (NEGATIVE) /HPF Urine Culture Reflexed YES (NO) Urine Glucose 150 (NEGATIVE) mg/dL 05/30/19 Range/Units 16:46 WBC (4.0-10.5) K/mm3 RBC (4.1-5.4) M/mm3 Hgb (12.0-16.0) gm/dl Hct (35-47) % MCV (78-100) fl MCH (26-32) pg MCHC (32-36) g/dl RDW (11.5-14.0) % Plt Count (150-450) K/mm3 MPV (6-9.5) fl Gran % (36.0-66.0) % Eos # (Auto) (0-0.5) Absolute Lymphs (auto) (1.0-4.6) Absolute Monos (auto) (0.0-1.3) Lymphocytes % (24.0-44.0) % Monocytes % (0.0-12.0) % Eosinophils % (0.00-5.0) % Basophils % (0.0-0.4) % Absolute Granulocytes (1.4-6.9) Basophils # (0-0.4) Sodium (137-145) mmol/L Potassium (3.5-5.1) mmol/L Chloride (98-107) mmol/L Carbon Dioxide (22-30) mmol/L Anion Gap (5-15) MEQ/L BUN (7-17) mg/dL Creatinine (0.52-1.04) mg/dL Estimated GFR ML/MIN Glucose (74-106) mg/dL Lactic Acid 1.9 (0.4-2.0) Calcium (8.4-10.2) mg/dL Magnesium (1.6-2.3) mg/dL Total Bilirubin (0.2-1.3) mg/dL AST (14-36) U/L ALT (0-35) U/L Alkaline Phosphatase (38-126) U/L Serum Total Protein (6.3-8.2) g/dL Albumin (3.5-5.0) g/dL Urine Color (YELLOW) Urine Appearance (CLEAR) Urine pH (5-6) Ur Specific [place] (1.005-1.025) Urine Protein (Negative) Urine Ketones (NEGATIVE) Urine Blood (0-5) [place]/ul Urine Nitrite (NEGATIVE) Urine Bilirubin (NEGATIVE) Urine Urobilinogen (0-1) mg/dL Ur Leukocyte Esterase (NEGATIVE) Urine WBC (Auto) (0-5) /HPF Urine RBC (Auto) (0-2) /HPF U Epithel Cells (Auto) (FEW) /HPF Urine Bacteria (Auto) (NEGATIVE) /HPF Urine Mucus (Auto) (NEGATIVE) /HPF Urine Culture Reflexed (NO) Urine Glucose (NEGATIVE) mg/dL - Progress Progress: improved Counseled pt/family regarding: lab results, diagnosis, need for follow-up - Departure Departure Disposition: Home Clinical Impression: Enteritis due to adenovirus, UTI (lower urinary tract infection) Type 2 diabetes mellitus Qualifiers: Diabetes mellitus jail insulin use: with jail use Diabetes mellitus complication status: with hyperglycemia Qualified Code(s): E11.65 - Type 2 diabetes mellitus with hyperglycemia Condition: Stable Critical Care Time: No Referrals: LIV CHOUDHARY [Primary Care Provider] - Instructions: Diarrhea in Adolescents and Adults, Fever, Adult (DC), Urinary Tract Infection, Adult (DC) Additional Instructions: Discharge/Care Plan ROBERTA INGRAM was seen on 05/30/19 in the Emergency Room. The patient was counseled regarding Diagnosis,Lab results, Imaging studies, need for follow up and when to return to the Emergency Room. Prescriptions given: Discharge Note I have spoken with the patient and/or caregivers. I have explained the patient' s condition, diagnosis and treatment plan based on the information available to me at this time. I have answered the patient's and/or caregiver's questions and addressed any concerns. The patient and/or caregivers have as good understanding of the patient's diagnosis, condition and treatment plan as can be expected at this point. The vital signs have been stable. The patient's condition is stable and appropriate for discharge from the emergency department. The patient will pursue further outpatient evaluation with the primary care physician or other designated or consulting physician as outlined in the discharge instructions. The patient and/or caregivers are agreeable to this plan of care and follow-up instructions have been explained in detail. The patient and/or caregivers have received these instruction. The patient/and or caregivers are aware that any significant change in condition or worsening of symptoms should prompt an immediate return to this or the closest emergency department or call 911. Prescriptions: Ciprofloxacin [Cipro 500 MG] 500 mg PO BIDAC #20 tablet
[2019-05-30] MEDS ORDERED: Sodium Chloride 0.9% 1000 ML 1,000 ML ONE (17:04)
[2019-05-30] MEDS: Sodium Chloride 0.9% 1000 ML 1,000 ML IV STA (17:07)
[2019-05-30 17:09] LABS: Lactic Acid 1.9 (0.4-2.0)
[2019-05-30 17:14] LABS: BASOPHIL % 0.3 % (0.0-0.4); Basophil (Absolute #) 0.02 (0-0.4); Eosinophil % 1.5 % (0.00-5.0); Granulocyte Absolute (ANC) 4.43 (1.4-6.9); Granulocytes % 67.5 % (36.0-66.0); Hematocrit 43.9 % (35-47); Hemoglobin 14.4 gm/dl (12.0-16.0); Lymphocyte (Absolute #) 1.63 (1.0-4.6); Lymphocytes % 24.8 % (24.0-44.0); Mean Cell Volume 84.6 fl (78-100); Mean Corpuscular Hemoglobin 27.7 pg (26-32); Mean Corpuscular Hgb Concent. 32.8 g/dl (32-36); Mean Platelet Volume 12.5 fl (6-9.5); Monocyte (Absolute #) 0.39 (0.0-1.3); Monocytes % 5.9 % (0.0-12.0); Platelet Count 158 K/mm3 (150-450); Red Blood Count 5.19 M/mm3 (4.1-5.4); Red Cell Distribution Width 13.5 % (11.5-14.0); White Blood Count 6.6 K/mm3 (4.0-10.5)
[2019-05-30 17:31] LABS: ALKALINE PHOSPHATASE 90 U/L (38-126); ANION GAP 11.9 MEQ/L (5-15); BLOOD UREA NITROGEN 5 mg/dL (7-17); CHLORIDE 103 mmol/L (98-107); Calcium 9.1 mg/dL (8.4-10.2); Carbon Dioxide 28 mmol/L (22-30); Creatinine 1 0.57 mg/dL (0.52-1.04); Glucose 231 mg/dL (74-106); MAGNESIUM 1.6 mg/dL (1.6-2.3); Potassium 3.8 mmol/L (3.5-5.1); SGOT/AST 52 U/L (14-36); SGPT/ALT 47 U/L (0-35); SODIUM 139 mmol/L (137-145); Total Protein 7.1 g/dL (6.3-8.2)
[2019-05-30 17:38] LABS: Appearance SLIGHTLY CLOUDY (CLEAR); Bacteria MODERATE /HPF (NEGATIVE); Bilirubin NEGATIVE (NEGATIVE); Blood NEGATIVE Ery/ul (0-5); Epithelial Cells RARE /HPF (FEW); Glucose 150 mg/dL (NEGATIVE); Ketones NEGATIVE (NEGATIVE); Leukocyte Esterase TRACE (NEGATIVE); Mucus SLIGHT /HPF (NEGATIVE); Nitrite POSITIVE (NEGATIVE); Protein,Urine Dip 100 (Negative); Specific Gravity 1.019 (1.005-1.025); Urobilinogen NEGATIVE mg/dL (0-1); WBC 26-50 /HPF (0-5)
[2019-05-30] MEDS ORDERED: Cipro 500 MG ONE (17:49)
[2019-05-30] MEDS: Cipro 500 MG PO STA (17:50)
[2019-05-30 18:02] VITALS: BP 122/66
== END 2019-05-30 17:59 | disposition home or self-care (01) ==
LOC: ED 15:55
DX: A08.2 Adenoviral enteritis (principal); N39.0 Urinary tract infection, site not specified; E11.65 Type 2 diabetes mellitus with hyperglycemia; I10 Essential (primary) hypertension; J44.9 Chronic obstructive pulmonary disease, unspecified; K76.9 Liver disease, unspecified; Z79.899 Other long term (current) drug therapy
CPT/HCPCS: 36415; 80053; 81001; 83605; 83735; 85025; 87077; 87086; 87186; 96360; 99284; A9270-GY

== ENCOUNTER 2020-12-03 11:27 | Emergency (ER) | payer MEDICARE ==
[2020-12-03] MEDS ORDERED: TORAdol 30 mg Injection IV ONE (12:01)
[2020-12-03] MEDS ORDERED: TORAdol 30 mg Injection ONE (12:04)
--- NOTE | 2020-12-03 12:05 | ERPHSYRPT ---
- History of Present Illness Time Seen by Provider: 12/03/20 12:03 Historian: patient Exam Limitations: no limitations Patient Subjective Stated Complaint: Abdominal pain Triage Nursing Assessment: Patient ambulated back to ED and transferred self to bed. Patient A+O x 3. Patient's skin pink, warm and dry. Patient complains of RUQ pain intermittent sharp pain that has gotten worse over the past week. Patient denies N/V or diarrhea. Patient states the pain is worse when taking a deep breath or coughing. Abdomen soft and round with BS X 4. Physician History: Abdominal pain for 1 week right upper quadrant area. Patient complains of RUQ pain intermittent sharp pain that has gotten worse over the past week. Patient denies N/V or diarrhea. Patient states the pain is worse when taking a deep breath or coughing. Timing/Duration: week(s) (one week), gradual onset Activities at Onset: none Quality: cramping Abdominal Pain Onset Location: RUQ Pain Radiation: no radiation Severity of Pain-Max: mild Severity of Pain-Current: mild Modifying Factors: Improves With: nothing Associated Symptoms: denies symptoms, No shortness of breath Allergies/Adverse Reactions: carisoprodol [From Soma] Allergy (Intermediate, Verified 12/03/20 11:35) buprenorphine Allergy (Verified 12/03/20 11:35) codeine [Codeine] Allergy (Verified 12/03/20 11:35) cyclobenzaprine HCl [From Flexeril] Allergy (Verified 12/03/20 11:35) duloxetine [From Cymbalta] Allergy (Verified 12/03/20 11:35) morphine Allergy (Verified 12/03/20 11:35) Penicillins Allergy (Verified 12/03/20 11:35) Sulfa (Sulfonamide Antibiotics) [Sulfa(Sulfonamide Antibiotics)] Allergy (Verified 12/03/20 11:35) glipizide Adverse Reaction (Verified 12/03/20 11:35) metformin Adverse Reaction (Verified 12/03/20 11:35) Home Medications: Albuterol 2.5 mg/3 ml Neb [Proventil 2.5 mg/3 ml Neb] 2.5 mg IH .PRN 05/16/14 [History] Lorazepam 1 mg [Ativan 1 MG] 1 mg PO BID 05/16/14 [History] Montelukast Sodium 10 mg [Singulair 10 MG] 10 mg PO DAILY 05/16/14 [History] Albuterol 8 gm Mdi Hfa [Ventolin Hfa MDI] 2 puff IH QID 11/21/16 [History] Hydrocodone/APAP 10/325 mg [[place] 10/325 MG Tablet] 1 tab PO Q6H PRN PRN 11/21/16 [History] Ferrous Sulfate 325 mg [Feosol 325 mg] 325 mg PO TID 12/22/17 [History] Fluticasone/Vilanterol [Breo Ellipta 200-25 Mcg INH] 1 ea IH DAILY 12/22/17 [History] lisinopriL [Zestril] 2.5 mg PO DAILY 12/22/17 [History] [place]-3 Fatty Acids/Fish Oil [Fish Oil 1,000 mg Capsule] 1 ea PO QID 07/25/18 [History] Vitamin E 400 unit PO BID 07/25/18 [History] Dulaglutide [Trulicity] 0.75 mg SQ UD 05/30/19 [History] Hx Tetanus, Diphtheria Vaccination/Date Given: Yes Hx Influenza Vaccination/Date Given: No Hx Pneumococcal Vaccination/Date Given: Yes Immunizations Up to Date: Yes Travel Risk - International Travel Have you traveled outside of the country in past 3 weeks: No - Coronavirus Screening Are you exhibiting any of the following symptoms?: No Close contact with a COVID-19 positive Pt in past 14-21 Days: No - Review of Systems Constitutional: No Fever, No Chills Eyes: No Symptoms Ears, Nose, & Throat: No Symptoms Respiratory: No Cough, No Dyspnea Cardiac: No Chest Pain, No Edema, No Syncope Abdominal/Gastrointestinal: Abdominal Pain, No Nausea, No Vomiting, No Diarrhea Genitourinary Symptoms: No Dysuria Musculoskeletal: No Back Pain, No Neck Pain Skin: No Rash Neurological: No Dizziness, No Focal Weakness, No Sensory Changes Psychological: No Symptoms Endocrine: No Symptoms All Other Systems: Reviewed and Negative - Past Medical History Pertinent Past Medical History: Yes Neurological History: No Pertinent History ENT History: No Pertinent History Cardiac History: Hypertension Respiratory History: Asthma, COPD Endocrine Medical History: No Pertinent History, Diabetes Type II, Liver Disease Musculoskeletal History: Other GI Medical History: No Pertinent History History: No Pertinent History Psycho-Social History: No Pertinent History Female Reproductive Disorders: No Pertinent History Other Medical History: L SPINE FUSION 2010; R LE SURGERY AFTER WORK INJURY - Past Surgical History Past Surgical History: Yes Gastrointestinal: Cholecystectomy Musculoskeletal: Orthopedic Surgery Female Surgical History: Section, Tubal Ligation Other Surgical History: 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 rt leg cadav. lumbar cadav bones - Social History Smoking Status: Current every day smoker How long have you smoked: 20 YRS Exposure to second hand smoke: No Drug Use: none Patient Lives Alone: No Significant Family History: no pertinent family hx - Female History Hx Last Menstrual Period: menopausal Hx Now: No - Nursing Vital Signs Nursing Vital Signs: Initial Vital Signs Temperature 98.4 F 12/03/20 11:36 Pulse Rate 88 12/03/20 11:36 Respiratory Rate 18 12/03/20 11:36 Blood Pressure 141/88 12/03/20 11:36 O2 Sat by Pulse Oximetry 96 12/03/20 11:36 Pain Scale Pain Intensity 6 - Physical Exam General Appearance: no apparent distress, alert Eye Exam: PERRL/EOMI, eyes nml inspection Ears, Nose, Throat Exam: normal ENT inspection, pharynx normal, moist mucous membranes Neck Exam: normal inspection, non-tender, supple, full range of motion Respiratory Exam: normal breath sounds, lungs clear, No respiratory distress Cardiovascular Exam: regular rate/rhythm, normal heart sounds Gastrointestinal/Abdomen Exam: soft, tenderness (right upper quadrant), No mass Back Exam: normal inspection, normal range of motion, No CVA tenderness, No vertebral tenderness Extremity Exam: normal inspection, normal range of motion, pelvis stable Neurologic Exam: alert, oriented x 3, cooperative, normal mood/affect, nml cerebellar function, sensation nml, No motor deficits Skin Exam: normal color, warm, dry SpO2: 96 - Course Nursing assessment & vital signs reviewed: Yes - Radiology Exams Abdomen X-ray Interpretation: Reviewed by me, Negative Ordered Tests: Active Orders 24 hr Category Date Time Status IV Insertion STAT Care 12/03/20 11:44 Active POCT Glucose Check STAT Care 12/03/20 11:44 Active OBSTR/ACUTE ABDOMEN SERIES Stat Exams 12/03/20 12:05 Taken AMYLASE Stat Lab 12/03/20 11:45 Completed CBC W DIFF Stat Lab 12/03/20 11:45 Completed CMP Stat Lab 12/03/20 11:45 Completed CULTURE,URINE Stat Lab 12/03/20 12:03 Received ESR [Erythrocyte Sedimentation Rate] Stat Lab 12/03/20 11:45 Completed POCT GLUCOSE Stat Lab 12/03/20 11:42 Completed UA W/RFX UR CULTURE Stat Lab 12/03/20 12:03 Completed Medication Summary Discontinued Medications Generic Name Dose Route Start Last Admin Trade Name Felisha PRN Reason Stop Dose Admin Ketorolac Tromethamine 30 mg 12/03/20 12:01 12/03/20 12:05 Toradol 30 Mg Injection IV 12/03/20 12:02 30 mg STAT ONE Administration Ketorolac Tromethamine Confirm 12/03/20 12:04 Toradol 30 Mg Injection Administered 12/03/20 12:05 Dose 30 mg .ROUTE .Advice Wallet ONE Lab/Rad Data: Laboratory Result Diagrams 12/03/20 11:45 12/03/20 11:45 Laboratory Results 12/03/20 12/03/20 12/03/20 Range/Units 12:03 11:45 11:45 WBC (4.0-10.5) K/mm3 RBC (4.1-5.4) M/mm3 Hgb (12.0-16.0) gm/dl Hct (35-47) % MCV (78-100) fl MCH (26-32) pg MCHC (32-36) g/dl RDW (11.5-14.0) % Plt Count (150-450) K/mm3 MPV (7.5-11.0) fl Gran % (36.0-66.0) % Eos # (Auto) (0-0.5) Absolute Lymphs (auto) (1.0-4.6) Absolute Monos (auto) (0.0-1.3) Lymphocytes % (24.0-44.0) % Monocytes % (0.0-12.0) % Eosinophils % (0.00-5.0) % Basophils % (0.0-0.4) % Absolute Granulocytes (1.4-6.9) Basophils # (0-0.4) ESR 18 (0-20) mm/hr Sodium 137 (137-145) mmol/L Potassium 4.3 (3.5-5.1) mmol/L Chloride 98 (98-107) mmol/L Carbon Dioxide 32 H (22-30) mmol/L Anion Gap 10.9 (5-15) MEQ/L BUN 8 (7-17) mg/dL Creatinine 0.62 (0.52-1.04) mg/dL Estimated GFR > 60.0 ML/MIN Glucose 178 H (74-106) mg/dL POC Glucometer (74 to 106) mg/dL Calcium 9.8 (8.4-10.2) mg/dL Total Bilirubin 0.50 (0.2-1.3) mg/dL AST 17 (14-36) U/L ALT 17 (0-35) U/L Alkaline Phosphatase 83 (38-126) U/L Serum Total Protein 7.3 (6.3-8.2) g/dL Albumin 4.1 (3.5-5.0) g/dL Amylase 44 (30-110) U/L Urine Color YELLOW (YELLOW) Urine Appearance SLIGHTLY CLOUDY (CLEAR) Urine pH 6.0 (5-6) Ur Specific [place] 1.020 (1.005-1.025) Urine Protein 100 (Negative) Urine Ketones NEGATIVE (NEGATIVE) Urine Blood NEGATIVE (0-5) [place]/ul Urine Nitrite POSITIVE (NEGATIVE) Urine Bilirubin NEGATIVE (NEGATIVE) Urine Urobilinogen NEGATIVE (0-1) mg/dL Ur Leukocyte Esterase MODERATE (NEGATIVE) Urine WBC (Auto) 51-100 (0-5) /HPF Urine RBC (Auto) 3-5 (0-2) /HPF U Epithel Cells (Auto) RARE (FEW) /HPF Urine Bacteria (Auto) MANY (NEGATIVE) /HPF Urine Mucus (Auto) SLIGHT (NEGATIVE) /HPF Urine Culture Reflexed YES (NO) Urine Glucose NEGATIVE (NEGATIVE) mg/dL 12/03/20 12/03/20 Range/Units 11:45 11:42 WBC 11.8 H (4.0-10.5) K/mm3 RBC 5.12 (4.1-5.4) M/mm3 Hgb 12.9 (12.0-16.0) gm/dl Hct 43.2 (35-47) % MCV 84.4 (78-100) fl MCH 25.2 L (26-32) pg MCHC 29.9 L (32-36) g/dl RDW 14.1 H (11.5-14.0) % Plt Count 302 (150-450) K/mm3 MPV 12.5 H (7.5-11.0) fl Gran % 69.6 H (36.0-66.0) % Eos # (Auto) 0.16 (0-0.5) Absolute Lymphs (auto) 2.84 (1.0-4.6) Absolute Monos (auto) 0.54 (0.0-1.3) Lymphocytes % 24.1 (24.0-44.0) % Monocytes % 4.6 (0.0-12.0) % Eosinophils % 1.4 (0.00-5.0) % Basophils % 0.3 (0.0-0.4) % Absolute Granulocytes 8.21 H (1.4-6.9) Basophils # 0.03 (0-0.4) ESR (0-20) mm/hr Sodium (137-145) mmol/L Potassium (3.5-5.1) mmol/L Chloride (98-107) mmol/L Carbon Dioxide (22-30) mmol/L Anion Gap (5-15) MEQ/L BUN (7-17) mg/dL Creatinine (0.52-1.04) mg/dL Estimated GFR ML/MIN Glucose (74-106) mg/dL POC Glucometer 158 H (74 to 106) mg/dL Calcium (8.4-10.2) mg/dL Total Bilirubin (0.2-1.3) mg/dL AST (14-36) U/L ALT (0-35) U/L Alkaline Phosphatase (38-126) U/L Serum Total Protein (6.3-8.2) g/dL Albumin (3.5-5.0) g/dL Amylase (30-110) U/L Urine Color (YELLOW) Urine Appearance (CLEAR) Urine pH (5-6) Ur Specific [place] (1.005-1.025) Urine Protein (Negative) Urine Ketones (NEGATIVE) Urine Blood (0-5) [place]/ul Urine Nitrite (NEGATIVE) Urine Bilirubin (NEGATIVE) Urine Urobilinogen (0-1) mg/dL Ur Leukocyte Esterase (NEGATIVE) Urine WBC (Auto) (0-5) /HPF Urine RBC (Auto) (0-2) /HPF U Epithel Cells (Auto) (FEW) /HPF Urine Bacteria (Auto) (NEGATIVE) /HPF Urine Mucus (Auto) (NEGATIVE) /HPF Urine Culture Reflexed (NO) Urine Glucose (NEGATIVE) mg/dL - Progress Progress: improved Counseled pt/family regarding: lab results, diagnosis, need for follow-up, rad results - Departure Departure Disposition: Home 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 At that time you were treated for an emergent condition, during your visit Laboratory, Radiology and/or other procedures may have been ordered. It is very important that you follow-up with your Primary Care Physician LIV CHOUDHARY within the next 24- 48 hours to review your Emergency Room visit and the final results of testing that was ordered. Some test results such as Urine Cultures, Blood Cultures, and other cultures if ordered will not be finalized for 24-48 hours. If you do not have a Primary Care Provider please call the medical records department at [phone] ext [phone] to obtain a copy of your results or you may sign into our patient portal to obtain these results by visiting us @ [email or web address] and completing the following steps: 1. Click on the Patient Portal link 2. Click the Patient Self Enrollment Link to complete the enrollment form and e ntering your 3. Once the enrollment form is completed you will receive an email with a temporary ID and password at the email address you provided. 4. Next choose a user name and password. Your user name must be at least 4 characters long and your password must be at least 4 characters long. 5. Choose a security question from the list and provide your answer to the question. If you already have signed into the Health Portal you may access your Health Care Information 26/05 by the following steps: 1. Login to our website @ [email or web address] 2. Enter your original user name and password. FAQS The [facility] Health Portal is an online tool that contains your Lab Results, Radiology Reports, Visit History, Discharge Instructions and Health Summary Lab and Radiology Results will not be available for 72 hours on the portal. The Portal is a secure site, passwords are encryted and URLs are re-written so they cannot be copied and pasted. You and authorized family members are the only ones who can access your Portal. Also there is a timeout feature that protects your information if you leave the Portal page open. If you have technical difficulty please use the Contact Us link on the page this will allow you to submit any questions you have regarding the Portal or you may contact the Medical Record Department at [phone]. Prescriptions: Ciprofloxacin [Cipro 500 MG] 500 mg PO BIDAC #20 tablet Methylprednisolone Packet [Medrol Dosepack] 4 mg PO UD #30 packet
[2020-12-03 12:06] LABS: Absolute Neutrophil Ct (ANC) 8.21 (1.4-6.9); BASOPHIL % 0.3 % (0.0-0.4); Basophil (Absolute #) 0.03 (0-0.4); Eosinophil % 1.4 % (0.00-5.0); Eosinophil (Absolute #) 0.16 (0-0.5); Hematocrit 43.2 % (35-47); Hemoglobin 12.9 gm/dl (12.0-16.0); Lymphocyte (Absolute #) 2.84 (1.0-4.6); Lymphocytes % 24.1 % (24.0-44.0); Mean Cell Volume 84.4 fl (78-100); Mean Corpuscular Hemoglobin 25.2 pg (26-32); Mean Corpuscular Hgb Concent. 29.9 g/dl (32-36); Mean Platelet Volume 12.5 fl (7.5-11.0); Monocyte (Absolute #) 0.54 (0.0-1.3); Monocytes % 4.6 % (0.0-12.0); Neutrophil % 69.6 % (36.0-66.0); Platelet Count 302 K/mm3 (150-450); Red Blood Count 5.12 M/mm3 (4.1-5.4); Red Cell Distribution Width 14.1 % (11.5-14.0); White Blood Count 11.8 K/mm3 (4.0-10.5)
[2020-12-03 12:12] LABS: ALBUMIN 4.1 g/dL (3.5-5.0); ALKALINE PHOSPHATASE 83 U/L (38-126); AMYLASE 44 U/L (30-110); ANION GAP 10.9 MEQ/L (5-15); BLOOD UREA NITROGEN 8 mg/dL (7-17); CHLORIDE 98 mmol/L (98-107); Calcium 9.8 mg/dL (8.4-10.2); Carbon Dioxide 32 mmol/L (22-30); Creatinine 1 0.62 mg/dL (0.52-1.04); EST GLOMERULAR FILTRATION RATE > 60.0 ML/MIN; Glucose 178 mg/dL (74-106); Potassium 4.3 mmol/L (3.5-5.1); SGOT/AST 17 U/L (14-36); SGPT/ALT 17 U/L (0-35); SODIUM 137 mmol/L (137-145); Total Protein 7.3 g/dL (6.3-8.2)
[2020-12-03 12:15] LABS: Appearance SLIGHTLY CLOUDY (CLEAR); Bacteria MANY /HPF (NEGATIVE); Bilirubin NEGATIVE (NEGATIVE); Blood NEGATIVE Ery/ul (0-5); Epithelial Cells RARE /HPF (FEW); Glucose NEGATIVE (NEGATIVE); Ketones NEGATIVE (NEGATIVE); Leukocyte Esterase MODERATE (NEGATIVE); Mucus SLIGHT /HPF (NEGATIVE); Nitrite POSITIVE (NEGATIVE); Protein,Urine Dip 100 (Negative); Urobilinogen NEGATIVE mg/dL (0-1); WBC 51-100 /HPF (0-5)
[2020-12-03 12:37] VITALS: PULSE 72
[2020-12-03] MEDS ORDERED: Rocephin 1000 MG INJ IM ONE (12:49)
[2020-12-03] MEDS ORDERED: ROCEPHIN 1 Gm-D5w 50 ml Bag** 1 G/50 ML IVPB IV STA (12:54)
[2020-12-03] MEDS ORDERED: ROCEPHIN 1 Gm-D5w 50 ml Bag** 1 G/50 ML IVPB IV ONE (12:54)
[2020-12-03 13:04] VITALS: BP 126/88; O2SAT 95
--- NOTE | 2020-12-03 16:44 | XRAY ---
Indication: Right abdomen pain. Comparison: Chest exam March 17, 2020. 2 view abdomen nonacute and nonobstructed with cholecystectomy clips. Solid organs and osseous structures unremarkable. Single AP chest again demonstrates normal heart, lungs, and bony thorax with incidental right base calcified granuloma. Impression: Negative abdomen. Continued nonacute 1 view chest with old granulomatous disease.
== END 2020-12-03 13:15 | disposition home or self-care (01) ==
LOC: ED 11:27
DX: R10.11 Right upper quadrant pain (principal); N30.00 Acute cystitis without hematuria; D86.2 Sarcoidosis of lung with sarcoidosis of lymph nodes; I10 Essential (primary) hypertension; E11.9 Type 2 diabetes mellitus without complications; F17.200 Nicotine dependence, unspecified, uncomplicated; Z79.899 Other long term (current) drug therapy
CPT/HCPCS: 36000; 36415; 74022; 80053; 81001; 82150; 82947; 85025; 85652; 87077; 87086; 87186; 96374; 99284; J0696; J1885

== ENCOUNTER 2020-12-04 11:04 | Emergency (ER) | payer MEDICARE ==
[2020-12-04 11:57] LABS: Absolute Neutrophil Ct (ANC) 6.69 (1.4-6.9); BASOPHIL % 0.3 % (0.0-0.4); Basophil (Absolute #) 0.03 (0-0.4); Eosinophil % 1.3 % (0.00-5.0); Eosinophil (Absolute #) 0.13 (0-0.5); Hematocrit 41.1 % (35-47); Hemoglobin 12.1 gm/dl (12.0-16.0); Lymphocyte (Absolute #) 2.29 (1.0-4.6); Lymphocytes % 23.7 % (24.0-44.0); Mean Cell Volume 85.3 fl (78-100); Mean Corpuscular Hemoglobin 25.1 pg (26-32); Mean Corpuscular Hgb Concent. 29.4 g/dl (32-36); Mean Platelet Volume 11.9 fl (7.5-11.0); Monocyte (Absolute #) 0.53 (0.0-1.3); Monocytes % 5.5 % (0.0-12.0); Neutrophil % 69.2 % (36.0-66.0); Platelet Count 270 K/mm3 (150-450); Red Blood Count 4.82 M/mm3 (4.1-5.4); Red Cell Distribution Width 14.2 % (11.5-14.0); White Blood Count 9.7 K/mm3 (4.0-10.5)
[2020-12-04 12:01] LABS: Appearance CLOUDY (CLEAR); Bilirubin NEGATIVE (NEGATIVE); Blood NEGATIVE Ery/ul (0-5); Epithelial Cells MANY /HPF (FEW); Glucose NEGATIVE (NEGATIVE); Ketones NEGATIVE (NEGATIVE); Leukocyte Esterase SMALL (NEGATIVE); Mucus SLIGHT /HPF (NEGATIVE); Nitrite NEGATIVE (NEGATIVE); Protein,Urine Dip 30 (Negative); Specific Gravity 1.017 (1.005-1.025); Urobilinogen NEGATIVE mg/dL (0-1)
--- NOTE | 2020-12-04 12:08 | ERPHSYRPT ---
- History of Present Illness Historian: patient Patient Subjective Stated Complaint: here for right sided abd pain for 4-5 worse today, was dx yesterday with UTI, no fever Triage Nursing Assessment: pt alert, resp easy, face mask in place, skin w/d/p, abd soft Physician History: 50 yo wf w RUQ pain x 4 days. Pt was seen in ER yesterday and diagnosed w a UTI. She is morbidly obese and states that pain is 8/10,stabbing. She denies N/V/D/dysuria/hematuria/fever/cough/coryza. She has had a ben. Timing/Duration: day(s) (4 days) Activities at Onset: none Quality: stabbing Abdominal Pain Onset Location: RUQ Pain Radiation: no radiation Severity of Pain-Max: severe Severity of Pain-Current: severe Modifying Factors: Improves With: nothing Associated Symptoms: No back, No chest pain, No diaphoresis, No diarrhea, No fever/chills, No fatigue, No headache, No heartburn, No loss of appetite, No nausea, No neck pain, No rash, No shortness of breath, No syncope, No vomiting, No weakness Previous symptoms: no prior history Allergies/Adverse Reactions: carisoprodol [From Soma] Allergy (Intermediate, Verified 12/04/20 11:23) buprenorphine Allergy (Verified 12/04/20 11:23) codeine [Codeine] Allergy (Verified 12/04/20 11:23) cyclobenzaprine HCl [From Flexeril] Allergy (Verified 12/04/20 11:23) duloxetine [From Cymbalta] Allergy (Verified 12/04/20 11:23) morphine Allergy (Verified 12/04/20 11:23) Penicillins Allergy (Verified 12/04/20 11:23) Sulfa (Sulfonamide Antibiotics) [Sulfa(Sulfonamide Antibiotics)] Allergy (Verified 12/04/20 11:23) glipizide Adverse Reaction (Verified 12/04/20 11:23) metformin Adverse Reaction (Verified 12/04/20 11:23) Home Medications: Albuterol 2.5 mg/3 ml Neb [Proventil 2.5 mg/3 ml Neb] 2.5 mg IH .PRN 05/16/14 [History] Lorazepam 1 mg [Ativan 1 MG] 1 mg PO BID 05/16/14 [History] Montelukast Sodium 10 mg [Singulair 10 MG] 10 mg PO DAILY 05/16/14 [History] Albuterol 8 gm Mdi Hfa [Ventolin Hfa MDI] 2 puff IH QID 11/21/16 [History] Hydrocodone/APAP 10/325 mg [[place] 10/325 MG Tablet] 1 tab PO Q6H PRN PRN 11/21/16 [History] Ferrous Sulfate 325 mg [Feosol 325 mg] 325 mg PO TID 12/22/17 [History] Fluticasone/Vilanterol [Breo Ellipta 200-25 Mcg INH] 1 ea IH DAILY 12/22/17 [History] lisinopriL [Zestril] 2.5 mg PO DAILY 12/22/17 [History] [place]-3 Fatty Acids/Fish Oil [Fish Oil 1,000 mg Capsule] 1 ea PO QID 07/25/18 [History] Vitamin E 400 unit PO BID 07/25/18 [History] Dulaglutide [Trulicity] 0.75 mg SQ UD 05/30/19 [History] Hx Tetanus, Diphtheria Vaccination/Date Given: Yes Hx Influenza Vaccination/Date Given: No Hx Pneumococcal Vaccination/Date Given: Yes Immunizations Up to Date: Yes Travel Risk - International Travel Have you traveled outside of the country in past 3 weeks: No - Coronavirus Screening Are you exhibiting any of the following symptoms?: No Close contact with a COVID-19 positive Pt in past 14-21 Days: No - Review of Systems Constitutional: No Symptoms Eyes: No Symptoms Ears, Nose, & Throat: No Symptoms Respiratory: No Symptoms Cardiac: No Symptoms Genitourinary Symptoms: No Symptoms Musculoskeletal: No Symptoms Skin: No Symptoms Neurological: No Symptoms Psychological: No Symptoms Endocrine: No Symptoms Hematologic/Lymphatic: No Symptoms Immunological/Allergic: No Symptoms - Past Medical History Pertinent Past Medical History: Yes Neurological History: No Pertinent History ENT History: No Pertinent History Cardiac History: Hypertension Respiratory History: Asthma, COPD Endocrine Medical History: No Pertinent History, Diabetes Type II, Liver Disease Musculoskeletal History: Other GI Medical History: No Pertinent History History: No Pertinent History Psycho-Social History: No Pertinent History Female Reproductive Disorders: No Pertinent History Other Medical History: L SPINE FUSION 2010; R LE SURGERY AFTER WORK INJURY - Past Surgical History Past Surgical History: Yes Gastrointestinal: Cholecystectomy Musculoskeletal: Orthopedic Surgery Female Surgical History: Section, Tubal Ligation Other Surgical History: 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 rt leg cadav. lumbar cadav bones - Social History Smoking Status: Current every day smoker How long have you smoked: 20 YRS Exposure to second hand smoke: No Drug Use: none Patient Lives Alone: No Significant Family History: no pertinent family hx - Female History Hx Last Menstrual Period: post Hx Now: No - Nursing Vital Signs Nursing Vital Signs: Initial Vital Signs Temperature 98.0 F 12/04/20 11:15 Pulse Rate 81 12/04/20 11:15 Respiratory Rate 16 12/04/20 11:15 Blood Pressure 140/83 12/04/20 11:15 O2 Sat by Pulse Oximetry 96 12/04/20 11:15 Pain Scale Pain Intensity 8 - Physical Exam General Appearance: no apparent distress Eye Exam: PERRL/EOMI, eyes nml inspection, No scleral icterus, No pale conjunctivae Ears, Nose, Throat Exam: normal ENT inspection, TMs normal, pharynx normal, moist mucous membranes Neck Exam: normal inspection, non-tender, supple, full range of motion, No meningismus, No mass, No Brudzinski, No Kernig's, No carotid bruit Respiratory Exam: normal breath sounds, lungs clear, airway intact, No respiratory distress Cardiovascular Exam: regular rate/rhythm, normal heart sounds, normal peripheral pulses, No murmur Gastrointestinal/Abdomen Exam: soft (Morbidly obese/Mild RUQ ttp wo guarding or rebound) Pelvic Exam: not done Back Exam: normal inspection, normal range of motion, No CVA tenderness, No willow tebral tenderness, No rash Extremity Exam: normal inspection, normal range of motion Neurologic Exam: alert, oriented x 3, cooperative, 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 as tested, normal mood/affect, nml cerebellar function, nml station & gait, sensation nml, No motor deficits, No sensory deficit Skin Exam: normal color, warm, dry, No rash Lymphatic Exam: adenopathy SpO2 Interpretation: normal SpO2: 96 O2 Delivery: Room Air Ordered Tests: Active Orders 24 hr Category Date Time Status ABDOMEN AND PELVIS W CONTRAST [CT] Stat Exams 12/04/20 12:01 Completed AMYLASE Stat Lab 12/04/20 11:20 Completed CBC W DIFF Stat Lab 12/04/20 11:20 Completed CMP Stat Lab 12/04/20 11:20 Completed HCG QUALITATIVE,SERUM Stat Lab 12/04/20 11:20 Completed LIPASE Stat Lab 12/04/20 11:20 Completed TROPONIN Q3H Lab 12/04/20 11:20 Completed UA W/RFX UR CULTURE Stat Lab 12/04/20 11:26 Completed Medication Summary Discontinued Medications Generic Name Dose Route Start Last Admin Trade Name Freq PRN Reason Stop Dose Admin Ceftriaxone Sodium/Dextrose 1 g in 50 mls @ 100 mls/hr 12/04/20 12:56 12/04/20 13:39 Rocephin 1 Gm-D5w 50 Ml Bag IV 12/04/20 13:25 Infused STAT STA Infusion Ceftriaxone Sodium/Dextrose Confirm 12/04/20 13:08 Rocephin 1 Gm-D5w 50 Ml Bag Administered 12/04/20 13:09 Dose 1 g in 50 mls @ ud IV .STK-MED ONE Ketorolac Tromethamine 30 mg 12/04/20 12:53 12/04/20 13:10 Toradol 30 Mg Injection IV 12/04/20 12:54 30 mg STAT ONE Administration Ketorolac Tromethamine Confirm 12/04/20 13:08 Toradol 30 Mg Injection Administered 12/04/20 13:09 Dose 30 mg .ROUTE .STK-MED ONE Lab/Rad Data: Laboratory Result Diagrams 12/04/20 11:20 12/04/20 11:20 Laboratory Results 12/04/20 12/04/20 12/04/20 Range/Units 11:26 11:20 11:20 WBC (4.0-10.5) K/mm3 RBC (4.1-5.4) M/mm3 Hgb (12.0-16.0) gm/dl Hct (35-47) % MCV (78-100) fl MCH (26-32) pg MCHC (32-36) g/dl RDW (11.5-14.0) % Plt Count (150-450) K/mm3 MPV (7.5-11.0) fl Gran % (36.0-66.0) % Eos # (Auto) (0-0.5) Absolute Lymphs (auto) (1.0-4.6) Absolute Monos (auto) (0.0-1.3) Lymphocytes % (24.0-44.0) % Monocytes % (0.0-12.0) % Eosinophils % (0.00-5.0) % Basophils % (0.0-0.4) % Absolute Granulocytes (1.4-6.9) Basophils # (0-0.4) Sodium (137-145) mmol/L Potassium (3.5-5.1) mmol/L Chloride (98-107) mmol/L Carbon Dioxide (22-30) mmol/L Anion Gap (5-15) MEQ/L BUN (7-17) mg/dL Creatinine (0.52-1.04) mg/dL Estimated GFR ML/MIN Glucose (74-106) mg/dL Calcium (8.4-10.2) mg/dL Total Bilirubin (0.2-1.3) mg/dL AST (14-36) U/L ALT (0-35) U/L Alkaline Phosphatase (38-126) U/L Troponin I < 0.012 (0.000-0.034) ng/mL Serum Total Protein (6.3-8.2) g/dL Albumin (3.5-5.0) g/dL Amylase (30-110) U/L Lipase (23-300) U/L Serum , Qual NEGATIVE (Negative) Urine Color YELLOW (YELLOW) Urine Appearance CLOUDY (CLEAR) Urine pH 5.0 (5-6) Ur Specific [place] 1.017 (1.005-1.025) Urine Protein 30 (Negative) Urine Ketones NEGATIVE (NEGATIVE) Urine Blood NEGATIVE (0-5) [place]/ul Urine Nitrite NEGATIVE (NEGATIVE) Urine Bilirubin NEGATIVE (NEGATIVE) Urine Urobilinogen NEGATIVE (0-1) mg/dL Ur Leukocyte Esterase SMALL (NEGATIVE) Urine WBC (Auto) 16-25 (0-5) /HPF Urine RBC (Auto) 3-5 (0-2) /HPF U Epithel Cells (Auto) MANY (FEW) /HPF Urine Bacteria (Auto) NONE (NEGATIVE) /HPF Urine Mucus (Auto) SLIGHT (NEGATIVE) /HPF Urine Culture Reflexed NO (NO) Urine Glucose NEGATIVE (NEGATIVE) mg/dL 12/04/20 12/04/20 Range/Units 11:20 11:20 WBC 9.7 (4.0-10.5) K/mm3 RBC 4.82 (4.1-5.4) M/mm3 Hgb 12.1 (12.0-16.0) gm/dl Hct 41.1 (35-47) % MCV 85.3 (78-100) fl MCH 25.1 L (26-32) pg MCHC 29.4 L (32-36) g/dl RDW 14.2 H (11.5-14.0) % Plt Count 270 (150-450) K/mm3 MPV 11.9 H (7.5-11.0) fl Gran % 69.2 H (36.0-66.0) % Eos # (Auto) 0.13 (0-0.5) Absolute Lymphs (auto) 2.29 (1.0-4.6) Absolute Monos (auto) 0.53 (0.0-1.3) Lymphocytes % 23.7 L (24.0-44.0) % Monocytes % 5.5 (0.0-12.0) % Eosinophils % 1.3 (0.00-5.0) % Basophils % 0.3 (0.0-0.4) % Absolute Granulocytes 6.69 (1.4-6.9) Basophils # 0.03 (0-0.4) Sodium 138 (137-145) mmol/L Potassium 4.5 (3.5-5.1) mmol/L Chloride 100 (98-107) mmol/L Carbon Dioxide 33 H (22-30) mmol/L Anion Gap 8.8 (5-15) MEQ/L BUN 12 (7-17) mg/dL Creatinine 0.81 (0.52-1.04) mg/dL Estimated GFR > 60.0 ML/MIN Glucose 165 H (74-106) mg/dL Calcium 9.5 (8.4-10.2) mg/dL Total Bilirubin 0.30 (0.2-1.3) mg/dL AST 17 (14-36) U/L ALT 15 (0-35) U/L Alkaline Phosphatase 75 (38-126) U/L Troponin I (0.000-0.034) ng/mL Serum Total Protein 7.0 (6.3-8.2) g/dL Albumin 3.8 (3.5-5.0) g/dL Amylase 45 (30-110) U/L Lipase 37 (23-300) U/L Serum , Qual (Negative) Urine Color (YELLOW) Urine Appearance (CLEAR) Urine pH (5-6) Ur Specific [place] (1.005-1.025) Urine Protein (Negative) Urine Ketones (NEGATIVE) Urine Blood (0-5) [place]/ul Urine Nitrite (NEGATIVE) Urine Bilirubin (NEGATIVE) Urine Urobilinogen (0-1) mg/dL Ur Leukocyte Esterase (NEGATIVE) Urine WBC (Auto) (0-5) /HPF Urine RBC (Auto) (0-2) /HPF U Epithel Cells (Auto) (FEW) /HPF Urine Bacteria (Auto) (NEGATIVE) /HPF Urine Mucus (Auto) (NEGATIVE) /HPF Urine Culture Reflexed (NO) Urine Glucose (NEGATIVE) mg/dL - Progress Progress: improved Progress Note: 12/04/20 12:57 1gm IV Rocephin/30mg IV Toradol 12/04/20 19:28 Pt did not get Rx for cipro filled Counseled pt/family regarding: lab results, diagnosis, need for follow-up, rad results - Departure Departure Disposition: Home Clinical Impression: UTI (lower urinary tract infection), Abdominal pain Condition: Stable Critical Care Time: No Referrals: LIV CHOUDHARY [Primary Care Provider] - Instructions: Urinary Tract Infection, Adult (DC), Acute Abdomen (Belly Pain), Adult (DC) Additional Instructions: Get your cipro prescription filled Follow up with your family MD in 1-2 days Return to ER for increasing pain or temperature greater than 100.5
[2020-12-04 12:18] LABS: ALBUMIN 3.8 g/dL (3.5-5.0); ALKALINE PHOSPHATASE 75 U/L (38-126); AMYLASE 45 U/L (30-110); ANION GAP 8.8 MEQ/L (5-15); BLOOD UREA NITROGEN 12 mg/dL (7-17); CHLORIDE 100 mmol/L (98-107); Calcium 9.5 mg/dL (8.4-10.2); Carbon Dioxide 33 mmol/L (22-30); Creatinine 1 0.81 mg/dL (0.52-1.04); EST GLOMERULAR FILTRATION RATE > 60.0 ML/MIN; Glucose 165 mg/dL (74-106); LIPASE 37 U/L (23-300); Potassium 4.5 mmol/L (3.5-5.1); SGOT/AST 17 U/L (14-36); SGPT/ALT 15 U/L (0-35); SODIUM 138 mmol/L (137-145)
--- NOTE | 2020-12-04 12:25 | XRAY ---
Indication: Right abdomen pain. Multiple contiguous axial images obtained through the abdomen and pelvis using 80 cc Isovue 370 contrast. Comparison: October 02, 2016. Lung bases again demonstrates minimal fibrosis/scarring and right lower lobe calcified granuloma. No infiltrate or effusion. Heart is not enlarged. Noncontrasted stomach and bowel loops remain nonobstructed with normal appendix and scattered colonic diverticulosis. No free fluid/air. Again 21.5 cm hepatomegaly, 13.7 cm splenomegaly, and cholecystectomy. Remaining liver, pancreas, spleen, adrenal glands, kidneys, ureters, bladder, uterus, and aorta are unremarkable. No pathologic retroperitoneal lymphadenopathy. Osseous structures intact. Stable small fatty right inguinal hernia. Impression: 1. Again colonic diverticulosis, hepatosplenomegaly, small fatty right inguinal hernia, and old granulomatous disease. 2. Remaining CT abdomen/pelvis with contrast exam is negative.
[2020-12-04] MEDS ORDERED: TORAdol 30 mg Injection IV ONE (12:53)
[2020-12-04] MEDS ORDERED: ROCEPHIN 1 Gm-D5w 50 ml Bag** 1 G/50 ML IVPB IV STA (12:56)
[2020-12-04] MEDS ORDERED: TORAdol 30 mg Injection ONE (13:08)
[2020-12-04] MEDS ORDERED: ROCEPHIN 1 Gm-D5w 50 ml Bag** 1 G/50 ML IVPB IV ONE (13:08)
[2020-12-04 13:42] VITALS: BP 125/90; PULSE 66
[2020-12-04 19:29] VITALS: O2SAT 96
== END 2020-12-04 13:35 | disposition home or self-care (01) ==
LOC: ED 11:04
DX: R10.11 Right upper quadrant pain (principal); N39.0 Urinary tract infection, site not specified; I10 Essential (primary) hypertension; E11.9 Type 2 diabetes mellitus without complications; F17.210 Nicotine dependence, cigarettes, uncomplicated; E66.9 Obesity, unspecified; Z79.899 Other long term (current) drug therapy
CPT/HCPCS: 36000; 36415; 74177; 80053; 81001; 81025; 82150; 83690; 84484; 85025; 96365; 96374; 99284; J0696; J1885

== ENCOUNTER 2021-01-29 19:57 | Observation (INO) | payer MEDICARE ==
[2021-01-29] MEDS ORDERED: Zofran 4 MG/2 ML VIAL IV ONE (20:20)
[2021-01-29] MEDS ORDERED: Hydromorphone 1 mg/ml Injection IV ONE ×2 (20:20→23:13)
[2021-01-29 20:48] LABS: Appearance CLEAR (CLEAR); Bilirubin NEGATIVE (NEGATIVE); Blood NEGATIVE Ery/ul (0-5); Epithelial Cells RARE /HPF (FEW); Glucose NEGATIVE (NEGATIVE); Ketones NEGATIVE (NEGATIVE); Leukocyte Esterase NEGATIVE (NEGATIVE); Mucus SLIGHT /HPF (NEGATIVE); Nitrite NEGATIVE (NEGATIVE); Protein,Urine Dip NEGATIVE (Negative); Specific Gravity 1.012 (1.005-1.025); Urobilinogen NEGATIVE mg/dL (0-1)
[2021-01-29 20:51] LABS: Absolute Neutrophil Ct (ANC) 9.62 (1.4-6.9); BASOPHIL % 0.2 % (0.0-0.4); Basophil (Absolute #) 0.03 (0-0.4); Eosinophil % 1.2 % (0.00-5.0); Eosinophil (Absolute #) 0.15 (0-0.5); Hematocrit 40.2 % (35-47); Hemoglobin 11.9 gm/dl (12.0-16.0); Lymphocyte (Absolute #) 2.35 (1.0-4.6); Lymphocytes % 18.4 % (24.0-44.0); Mean Cell Volume 84.5 fl (78-100); Mean Corpuscular Hgb Concent. 29.6 g/dl (32-36); Mean Platelet Volume 13.2 fl (7.5-11.0); Monocyte (Absolute #) 0.62 (0.0-1.3); Monocytes % 4.9 % (0.0-12.0); Neutrophil % 75.3 % (36.0-66.0); Platelet Count 258 K/mm3 (150-450); Red Blood Count 4.76 M/mm3 (4.1-5.4); Red Cell Distribution Width 14.4 % (11.5-14.0); White Blood Count 12.8 K/mm3 (4.0-10.5)
[2021-01-29 20:57] LABS: ALBUMIN 4.3 g/dL (3.5-5.0); ALKALINE PHOSPHATASE 82 U/L (38-126); AMYLASE 35 U/L (30-110); ANION GAP 14.6 MEQ/L (5-15); BLOOD UREA NITROGEN 9 mg/dL (7-17); CHLORIDE 100 mmol/L (98-107); Calcium 9.4 mg/dL (8.4-10.2); Carbon Dioxide 28 mmol/L (22-30); Creatinine 1 0.63 mg/dL (0.52-1.04); EST GLOMERULAR FILTRATION RATE > 60.0 ML/MIN; Glucose 116 mg/dL (74-106); LIPASE 25 U/L (23-300); Potassium 3.9 mmol/L (3.5-5.1); SGOT/AST 21 U/L (14-36); SGPT/ALT 14 U/L (0-35); SODIUM 139 mmol/L (137-145); Total Protein 7.7 g/dL (6.3-8.2)
[2021-01-29] MEDS ORDERED: Zofran 4 MG/2 ML VIAL ONE (21:01)
[2021-01-29] MEDS ORDERED: Hydromorphone 1 mg/ml Injection ONE ×2 (21:02→23:21)
--- NOTE | 2021-01-29 21:32 | ERPHSYRPT ---
- History of Present Illness Time Seen by Provider: 01/29/21 20:20 Historian: patient Exam Limitations: no limitations Patient Subjective Stated Complaint: Patient states that she has abdominal pain in her upper right stomach that is radiating to her right back. She is also complaining that her legs are swollen. The patient states that she often has abdominal pain similar to this. Triage Nursing Assessment: The patient is alert and oriented, slightly short of breath, which is normal for her. The patient is complaining of RUQ pain that radiates around to her back/flank area. The patient rates her pain at a 7. The patient has bowel sounds x4, is tender upon palpation on the right side. The patient's abdomen is soft, round, and obese. Physician History: This is a 50-year-old obese white female who has been seen in this emergency department 3 times since December 03, 2020 for the exact same complaint of right upper quadrant abdominal pain with radiation to the right flank. Patient does have a history of ureterolithiasis bilaterally in the past. She has a history of anxiety and morbid obesity. CAT scan on 12/05/2019 one of the abdomen pelvis with contrast showed no acute findings. Her episode of pain this time began approximately 1-1/2 weeks ago. She was concerned because of this pain and she noticed that she is having bilateral feet and ankle swelling that was not as significant prior to a week and a half ago. Timing/Duration: week(s) (-1/2) Activities at Onset: none Quality: sharpness, stabbing Abdominal Pain Onset Location: RUQ Severity of Pain-Max: moderate Severity of Pain-Current: moderate Modifying Factors: Improves With: movement Associated Symptoms: No diarrhea, No vomiting Previous symptoms: same symptoms as today, recently treated Allergies/Adverse Reactions: carisoprodol [From Soma] Allergy (Intermediate, Verified 12/04/20 11:23) buprenorphine Allergy (Verified 12/04/20 11:23) codeine [Codeine] Allergy (Verified 12/04/20 11:23) cyclobenzaprine HCl [From Flexeril] Allergy (Verified 12/04/20 11:23) duloxetine [From Cymbalta] Allergy (Verified 12/04/20 11:23) morphine Allergy (Verified 12/04/20 11:23) Penicillins Allergy (Verified 12/04/20 11:23) Sulfa (Sulfonamide Antibiotics) [Sulfa(Sulfonamide Antibiotics)] Allergy (Verified 12/04/20 11:23) glipizide Adverse Reaction (Verified 12/04/20 11:23) metformin Adverse Reaction (Verified 12/04/20 11:23) Home Medications: Albuterol 2.5 mg/3 ml Neb [Proventil 2.5 mg/3 ml Neb] 2.5 mg IH .PRN 05/16/14 [History] Lorazepam 1 mg [Ativan 1 MG] 1 mg PO BID 05/16/14 [History] Montelukast Sodium 10 mg [Singulair 10 MG] 10 mg PO DAILY 05/16/14 [History] Albuterol 8 gm Mdi Hfa [Ventolin Hfa MDI] 2 puff IH QID 11/21/16 [History] Hydrocodone/APAP 10/325 mg [[place] 10/325 MG Tablet] 1 tab PO Q6H PRN PRN 11/21/16 [History] Ferrous Sulfate 325 mg [Feosol 325 mg] 325 mg PO TID 12/22/17 [History] Fluticasone/Vilanterol [Breo Ellipta 200-25 Mcg INH] 1 ea IH DAILY 12/22/17 [History] lisinopriL [Zestril] 2.5 mg PO DAILY 12/22/17 [History] [place]-3 Fatty Acids/Fish Oil [Fish Oil 1,000 mg Capsule] 1 ea PO QID 07/25/18 [History] Vitamin E 400 unit PO BID 07/25/18 [History] Dulaglutide [Trulicity] 0.75 mg SQ UD 05/30/19 [History] Hx Tetanus, Diphtheria Vaccination/Date Given: Yes Hx Influenza Vaccination/Date Given: No Hx Pneumococcal Vaccination/Date Given: No Immunizations Up to Date: Yes Travel Risk - International Travel Have you traveled outside of the country in past 3 weeks: No - Coronavirus Screening Are you exhibiting any of the following symptoms?: No Close contact with a COVID-19 positive Pt in past 14-21 Days: No - Review of Systems Constitutional: No Symptoms Eyes: No Symptoms Ears, Nose, & Throat: No Symptoms Respiratory: No Symptoms Cardiac: No Symptoms Abdominal/Gastrointestinal: Abdominal Pain (Right upper quadrant), No Nausea, No Vomiting, No Diarrhea Genitourinary Symptoms: No Symptoms Skin: No Symptoms Neurological: No Symptoms Psychological: No Symptoms Endocrine: No Symptoms Hematologic/Lymphatic: No Symptoms Immunological/Allergic: No Symptoms All Other Systems: Reviewed and Negative - Past Medical History Pertinent Past Medical History: Yes Neurological History: No Pertinent History ENT History: No Pertinent History Cardiac History: Hypertension Respiratory History: Asthma, COPD Endocrine Medical History: No Pertinent History, Diabetes Type II, Liver Disease Musculoskeletal History: Other GI Medical History: No Pertinent History History: No Pertinent History Psycho-Social History: No Pertinent History Female Reproductive Disorders: No Pertinent History Other Medical History: L SPINE FUSION 2010; R LE SURGERY AFTER WORK INJURY - Past Surgical History Past Surgical History: Yes Gastrointestinal: Cholecystectomy Musculoskeletal: Orthopedic Surgery Female Surgical History: Section, Tubal Ligation Other Surgical History: 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 rt leg cadav. lumbar cadav bones - Social History Smoking Status: Current every day smoker How long have you smoked: 24 years Exposure to second hand smoke: No Drug Use: none Patient Lives Alone: No Significant Family History: no pertinent family hx - Female History Hx Now: No - Nursing Vital Signs Nursing Vital Signs: Initial Vital Signs Temperature 98.3 F 01/29/21 20:20 Pulse Rate 84 01/29/21 20:20 Respiratory Rate 20 01/29/21 20:20 Blood Pressure 169/101 01/29/21 20:20 O2 Sat by Pulse Oximetry 99 01/29/21 20:20 Pain Scale Pain Intensity 8 - Physical Exam General Appearance: no apparent distress, alert, anxiety, obese Eye Exam: PERRL/EOMI, eyes nml inspection Ears, Nose, Throat Exam: normal ENT inspection, moist mucous membranes Neck Exam: normal inspection, non-tender, supple, full range of motion Respiratory Exam: normal breath sounds, lungs clear, airway intact, No chest tenderness, No respiratory distress Cardiovascular Exam: regular rate/rhythm, normal heart sounds, normal peripheral pulses Gastrointestinal/Abdomen Exam: soft, normal bowel sounds, tenderness (Right upper quadrant), guarding (Right upper quadrant) Pelvic Exam: not done Rectal Exam: not done Back Exam: normal inspection, normal range of motion, CVA tenderness, No vertebral tenderness (8) Extremity Exam: normal inspection, normal range of motion, pelvis stable Neurologic Exam: alert, oriented x 3, cooperative, c java developer II-XII nml as tested, normal mood/affect, nml cerebellar function, nml station & gait, sensation nml Skin Exam: normal color, warm, dry Lymphatic Exam: No adenopathy SpO2 Interpretation: normal SpO2: 96 O2 Delivery: Room Air - Course Nursing assessment & vital signs reviewed: Yes Ordered Tests: Active Orders 24 hr Category Date Time Status IV Insertion STAT Care 01/29/21 20:20 Active ABDOMEN AND PELVIS W/0 CONTRAS [CT] Stat Exams 01/29/21 20:21 Taken AMYLASE Stat Lab 01/29/21 20:40 Completed CBC W DIFF Stat Lab 01/29/21 20:40 Completed CMP Stat Lab 01/29/21 20:40 Completed LIPASE Stat Lab 01/29/21 20:40 Completed Lactic Acid Stat Lab 01/29/21 20:55 Completed UA W/RFX UR CULTURE Stat Lab 01/29/21 20:40 Completed Respiratory MDI STAT RT 01/29/21 22:56 Active Transfer Order Routine Transfer 01/29/21 Ordered Medication Summary Generic Name Dose Route Start Last Admin Trade Name Freq PRN Reason Stop Dose Admin Albuterol Sulfate 4 puff 01/29/21 22:54 01/29/21 23:07 Ventolin Common Canister IH 02/28/21 22:53 4 puff Q4H PRN PRN Administration SHORTNESS OF BREATH/WHEEZING Hydromorphone HCl 1 mg 01/29/21 23:13 Hydromorphone 1 Mg/Ml Injection IV 01/29/21 23:14 STAT ONE Discontinued Medications Generic Name Dose Route Start Last Admin Trade Name Freq PRN Reason Stop Dose Admin Hydromorphone HCl 0.5 mg 01/29/21 20:20 01/29/21 21:06 Hydromorphone 1 Mg/Ml Injection IV 01/29/21 20:21 0.5 mg STAT ONE Administration Hydromorphone HCl Confirm 01/29/21 21:02 Hydromorphone 1 Mg/Ml Injection Administered 01/29/21 21:03 Dose 1 mg .ROUTE .STK-MED ONE Ondansetron HCl 4 mg 01/29/21 20:20 01/29/21 21:06 Zofran 4 Mg/2 Ml Vial IV 01/29/21 20:21 4 mg STAT ONE Administration Ondansetron HCl Confirm 01/29/21 21:01 Zofran 4 Mg/2 Ml Vial Administered 01/29/21 21:02 Dose 4 mg .ROUTE .STK-MED ONE Lab/Rad Data: Laboratory Result Diagrams 01/29/21 20:40 01/29/21 20:40 Laboratory Results 01/29/21 01/29/21 01/29/21 Range/Units 20:55 20:40 20:40 WBC (4.0-10.5) K/mm3 RBC (4.1-5.4) M/mm3 Hgb (12.0-16.0) gm/dl Hct (35-47) % MCV (78-100) fl MCH (26-32) pg MCHC (32-36) g/dl RDW (11.5-14.0) % Plt Count (150-450) K/mm3 MPV (7.5-11.0) fl Gran % (36.0-66.0) % Eos # (Auto) (0-0.5) Absolute Lymphs (auto) (1.0-4.6) Absolute Monos (auto) (0.0-1.3) Lymphocytes % (24.0-44.0) % Monocytes % (0.0-12.0) % Eosinophils % (0.00-5.0) % Basophils % (0.0-0.4) % Absolute Granulocytes (1.4-6.9) Basophils # (0-0.4) Sodium 139 (137-145) mmol/L Potassium 3.9 (3.5-5.1) mmol/L Chloride 100 (98-107) mmol/L Carbon Dioxide 28 (22-30) mmol/L Anion Gap 14.6 (5-15) MEQ/L BUN 9 (7-17) mg/dL Creatinine 0.63 (0.52-1.04) mg/dL Estimated GFR > 60.0 ML/MIN Glucose 116 H (74-106) mg/dL Lactic Acid 1.6 (0.4-2.0) Calcium 9.4 (8.4-10.2) mg/dL Total Bilirubin 0.40 (0.2-1.3) mg/dL AST 21 (14-36) U/L ALT 14 (0-35) U/L Alkaline Phosphatase 82 (38-126) U/L Serum Total Protein 7.7 (6.3-8.2) g/dL Albumin 4.3 (3.5-5.0) g/dL Amylase 35 (30-110) U/L Lipase 25 (23-300) U/L Urine Color YELLOW (YELLOW) Urine Appearance CLEAR (CLEAR) Urine pH 8.0 (5-6) Ur Specific [place] 1.012 (1.005-1.025) Urine Protein NEGATIVE (Negative) Urine Ketones NEGATIVE (NEGATIVE) Urine Blood NEGATIVE (0-5) [place]/ul Urine Nitrite NEGATIVE (NEGATIVE) Urine Bilirubin NEGATIVE (NEGATIVE) Urine Urobilinogen NEGATIVE (0-1) mg/dL Ur Leukocyte Esterase NEGATIVE (NEGATIVE) Urine WBC (Auto) 3-5 (0-5) /HPF U Epithel Cells (Auto) RARE (FEW) /HPF Urine Mucus (Auto) SLIGHT (NEGATIVE) /HPF Urine Culture Reflexed NO (NO) Urine Glucose NEGATIVE (NEGATIVE) mg/dL 01/29/21 Range/Units 20:40 WBC 12.8 H (4.0-10.5) K/mm3 RBC 4.76 (4.1-5.4) M/mm3 Hgb 11.9 L (12.0-16.0) gm/dl Hct 40.2 (35-47) % MCV 84.5 (78-100) fl MCH 25.0 L (26-32) pg MCHC 29.6 L (32-36) g/dl RDW 14.4 H (11.5-14.0) % Plt Count 258 (150-450) K/mm3 MPV 13.2 H (7.5-11.0) fl Gran % 75.3 H (36.0-66.0) % Eos # (Auto) 0.15 (0-0.5) Absolute Lymphs (auto) 2.35 (1.0-4.6) Absolute Monos (auto) 0.62 (0.0-1.3) Lymphocytes % 18.4 L (24.0-44.0) % Monocytes % 4.9 (0.0-12.0) % Eosinophils % 1.2 (0.00-5.0) % Basophils % 0.2 (0.0-0.4) % Absolute Granulocytes 9.62 H (1.4-6.9) Basophils # 0.03 (0-0.4) Sodium (137-145) mmol/L Potassium (3.5-5.1) mmol/L Chloride (98-107) mmol/L Carbon Dioxide (22-30) mmol/L Anion Gap (5-15) MEQ/L BUN (7-17) mg/dL Creatinine (0.52-1.04) mg/dL Estimated GFR ML/MIN Glucose (74-106) mg/dL Lactic Acid (0.4-2.0) Calcium (8.4-10.2) mg/dL Total Bilirubin (0.2-1.3) mg/dL AST (14-36) U/L ALT (0-35) U/L Alkaline Phosphatase (38-126) U/L Serum Total Protein (6.3-8.2) g/dL Albumin (3.5-5.0) g/dL Amylase (30-110) U/L Lipase (23-300) U/L Urine Color (YELLOW) Urine Appearance (CLEAR) Urine pH (5-6) Ur Specific [place] (1.005-1.025) Urine Protein (Negative) Urine Ketones (NEGATIVE) Urine Blood (0-5) [place]/ul Urine Nitrite (NEGATIVE) Urine Bilirubin (NEGATIVE) Urine Urobilinogen (0-1) mg/dL Ur Leukocyte Esterase (NEGATIVE) Urine WBC (Auto) (0-5) /HPF U Epithel Cells (Auto) (FEW) /HPF Urine Mucus (Auto) (NEGATIVE) /HPF Urine Culture Reflexed (NO) Urine Glucose (NEGATIVE) mg/dL - Progress Progress: improved, pain not gone completely, re-examined Progress Note: 01/29/21 22:58 CAT scan of the abdomen and pelvis shows no acute intrapelvic or intra-abdominal allergy or process. However, there is a new finding of right rib fractures #8 and 9. There is some atelectasis present in the right lung field as well as possible fluid that may be a very small hemothorax. This was not present on a CAT scan dated 12/05/2020. Medical decision making: I think the patient would benefit from being placed in observation overnight. Patient lives alone and it is in the evening. Patient's pain is improving but I do not think at the level of improvement that is necessary for her to be alone this evening. I contacted Dr. Vo and reviewed the patient history, condition, physical findings and the results of her work-up. Patient will be placed in observation. Counseled pt/family regarding: lab results, diagnosis, need for follow-up, rad results - Departure Departure Disposition: Observation Clinical Impression: Right rib fracture Condition: Stable Critical Care Time: No Referrals: LIV CHOUDHARY [Primary Care Provider] -
[2021-01-29] MEDS ORDERED: VENTOLIN COMMON CANISTER IH PRN (22:54)
[2021-01-29 23:40] LABS: INFLUENZA A NEGATIVE (NEGATIVE); INFLUENZA B NEGATIVE (NEGATIVE); RESPIRATORY SYNCTIAL VIRUS NEGATIVE (Negative)
[2021-01-30] MEDS ORDERED: HUMULIN R SQ PRN (00:10)
[2021-01-30] MEDS ORDERED: Zofran 4 MG/2 ML VIAL IV PRN (00:10)
[2021-01-30] MEDS ORDERED: TYLENOL 325 MG PO PRN (00:10)
[2021-01-30] MEDS: Hydromorphone 1 mg/ml Injection IV PRN ×2 (04:28→08:33)
[2021-01-30 05:29] LABS: Absolute Neutrophil Ct (ANC) 7.12 (1.4-6.9); BASOPHIL % 0.3 % (0.0-0.4); Basophil (Absolute #) 0.03 (0-0.4); Eosinophil % 1.8 % (0.00-5.0); Eosinophil (Absolute #) 0.18 (0-0.5); Hematocrit 38.9 % (35-47); Hemoglobin 11.2 gm/dl (12.0-16.0); Lymphocyte (Absolute #) 2.24 (1.0-4.6); Lymphocytes % 22.1 % (24.0-44.0); Mean Cell Volume 86.4 fl (78-100); Mean Corpuscular Hemoglobin 24.9 pg (26-32); Mean Corpuscular Hgb Concent. 28.8 g/dl (32-36); Mean Platelet Volume 11.7 fl (7.5-11.0); Monocyte (Absolute #) 0.55 (0.0-1.3); Monocytes % 5.4 % (0.0-12.0); Neutrophil % 70.4 % (36.0-66.0); Platelet Count 291 K/mm3 (150-450); Red Cell Distribution Width 14.4 % (11.5-14.0); White Blood Count 10.1 K/mm3 (4.0-10.5)
[2021-01-30 05:49] LABS: Slide Review 1 YES
[2021-01-30] MEDS ORDERED: VENTOLIN COMMON CANISTER IH SCH (07:00)
[2021-01-30] MEDS ORDERED: Advair Hfa 115/21 Common canister IH SCH (07:00)
--- NOTE | 2021-01-30 08:44 | XRAY ---
Indication: Right upper quadrant/right flank pain radiating to back. Multiple contiguous axial images obtained through the abdomen and pelvis without contrast. Comparison: December 04, 2020. New nondisplaced lateral right 8-9 rib fractures. 8 rib fracture is healing. Lung bases demonstrates new bibasilar subsegmental atelectasis and small right effusion/hemothorax. No pneumothorax. Stable right base calcified granulomas. Heart is not enlarged. Noncontrasted stomach and bowel loops remain nonobstructed with normal appendix and scattered colonic diverticulosis. No free fluid/air. Again nonobstructing punctate left renal calculus, 21.5 cm hepatomegaly, 13.7 cm splenomegaly, and cholecystectomy. Remaining liver, pancreas, spleen, adrenal glands, kidneys, ureters, bladder, uterus, and aorta appear unremarkable for noncontrast exam. Osseous structures intact again with mild lumbosacral junction degenerative changes. Stable small fatty right inguinal hernia. Impression: 1. New right 8-9 rib fractures with small right effusion/hemothorax and bibasilar subsegmental atelectasis. 2. Again incidental hepatosplenomegaly, nonobstructing left renal micro-calculus, small fatty right inguinal hernia, and old granulomatous disease.
[2021-01-30 09:01] VITALS: BP 135/62; PULSE 78; O2SAT 90
[2021-01-30] MEDS ORDERED: PROVENTIL 2.5 MG/3 ML NEB IH PRN (09:19)
[2021-01-30] MEDS ORDERED: HYDROCODONE-ACETAMIN 10-325 MG PO PRN (09:19)
[2021-01-30] MEDS ORDERED: MEDICATION INTERVENTION PO SCH (09:30)
[2021-01-30] MEDS ORDERED: Lantus Insulin SQ SCH (10:00)
[2021-01-30] MEDS ORDERED: FEOSOL 325 MG PO SCH (10:00)
[2021-01-30] MEDS ORDERED: NON-FORMULARY ITEM (Rosuvastatin Calcium [Rosuvastatin Calcium] 5 MG) PO SCH (10:00)
[2021-01-30] MEDS ORDERED: Singulair 10 MG PO SCH (10:00)
[2021-01-30] MEDS ORDERED: OMEGA PO SCH (10:00)
[2021-01-30] MEDS ORDERED: Zocor 10MG PO SCH (10:00)
[2021-01-30] MEDS ORDERED: Zestril 5 MG PO SCH (10:00)
[2021-01-30] MEDS ORDERED: FISH OIL 1,000 MG CAPSULE PO SCH (10:00)
[2021-01-30] MEDS ORDERED: FISH OIL PO SCH (10:00)
[2021-01-30] MEDS ORDERED: FATTY ACIDS PO SCH (10:00)
[2021-01-30] MEDS ORDERED: INSULIN DEGLUDEC 74 UNIT SQ SCH (10:00)
[2021-01-30] MEDS ORDERED: Vitamin E 400 UNIT SOFTGEL PO SCH (10:00)
[2021-01-30] MEDS ORDERED: Ativan 1 MG PO SCH (10:00)
[2021-01-30] MEDS ORDERED: HUMALOG SQ SCH (12:00)
[2021-01-30] MEDS ORDERED: INSULIN ASPART SQ SCH (12:00)
--- NOTE | 2021-02-18 22:02 | PCM.SSS ---
History of Present Illness - Chief Complaint Chief Complaint: rib fractures Date: 01/30/21 History of Present Illness: is a 50 year old female. Medications & Allergies Home Medications: Home Medication List Albuterol 2.5 mg/3 ml Neb [Proventil 2.5 mg/3 ml Neb] 2.5 mg IH DAILY PRN PRN 05/16/14 [History Confirmed 01/30/21] Lorazepam 1 mg [Ativan 1 MG] 1 mg PO DAILY 05/16/14 [History Confirmed 01/30/21] Montelukast Sodium 10 mg [Singulair 10 MG] 10 mg PO DAILY 05/16/14 [History Confirmed 01/29/21] Albuterol 8 gm Mdi Hfa [Ventolin Hfa MDI] 2 puff IH QID 11/21/16 [History Confirmed 01/29/21] Hydrocodone/APAP 10/325 mg [[place] 10/325 MG TableT] 1 tab PO Q6H PRN PRN 11/21/16 [History Confirmed 01/29/21] Ferrous Sulfate 325 mg [Feosol 325 mg] 325 mg PO TID 12/22/17 [History Confirmed 01/29/21] lisinopriL [Zestril] 2.5 mg PO DAILY 12/22/17 [History Confirmed 01/29/21] [place]-3 Fatty Acids/Fish Oil [Fish Oil 1,000 mg Capsule] 1,000 mg PO QID 07/25/18 [History Confirmed 01/30/21] Vitamin E 200 unit PO TID 07/25/18 [History Confirmed 01/30/21] Insulin Aspart [Novolog] 23 units SQ TIDWMEALS 01/30/21 [History Confirmed 01/30/21] Insulin Degludec [Tresiba Flextouch U-100] 74 units SQ DAILY 01/30/21 [History Confirmed 01/30/21] Rosuvastatin Calcium 5 mg PO DAILY 01/30/21 [History Confirmed 01/30/21] Allergies/Adverse Reactions: Allergies Allergy/AdvReac Type Severity Reaction Status Date / Time carisoprodol [From Soma] Allergy Intermediate Verified 01/30/21 00:51 buprenorphine Allergy Verified 01/30/21 00:51 codeine [Codeine] Allergy Verified 01/30/21 00:51 cyclobenzaprine HCl Allergy Verified 01/30/21 00:51 [From Flexeril] duloxetine [From Cymbalta] Allergy Verified 01/30/21 00:51 morphine Allergy Verified 01/30/21 00:51 Penicillins Allergy Verified 01/30/21 00:51 Sulfa (Sulfonamide Allergy Verified 01/30/21 00:51 Antibiotics) [Sulfa(Sulfonamide Antibiotics)] glipizide AdvReac Verified 01/30/21 00:51 metformin AdvReac Verified 01/30/21 00:51 - Past Medical History Past Medical History: Yes Neurological History: Migraines ENT History: Glaucoma Cardiac History: Hypertension Respiratory History: Asthma, Bronchitis, COPD, Pneumonia Endocrine Medical History: Diabetes Type II, Liver Disease Musculoskelatal History: Other GI Medical History: No Pertinent History, Other History: Other Pyscho-Social History: Anxiety, Other Reproductive Disorders: No Pertinent History Comment: L SPINE FUSION 2010; R LE SURGERY AFTER WORK INJURY PERALYSIS OF THE BOWEL, STRESS INCONTINENT. RIGHT RIP FRACTURES. ANEMIA. 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 rt leg cadav. lumbar cadav bones. KIDNEY STONES REMOVED. L SPINE FUSION 2010; R LE SURGERY AFTER WORK INJURY - Social History Smoking Status: Current every day smoker How long have you smoked: 24 years Exposure to second hand smoke: No Alcohol: None Drug Use: none Significant Family History: no pertinent family hx Hospital Summary - Vitals & Intake/Output Vital Signs: Vital Signs Temperature 98.6 F 01/30/21 08:00 Pulse Rate 78 01/30/21 08:00 Respiratory Rate 20 01/30/21 08:00 Blood Pressure 135/62 01/30/21 08:00 O2 Sat by Pulse Oximetry 90 L 01/30/21 08:00 - Lab Result Diagrams: 01/30/21 04:33 01/29/21 20:40 - Procedures and Test Procedures and Tests throughout Hospitalization: Therapy Orders & Screens 01/29/21 23:27 Respiratory Therapy Assessment DAILY Comment: 01/30/21 00:10 Respiratory Therapy Consult ROUTINE Comment: Reason For Exam: 01/30/21 00:41 OT Screen per Nursing Assess ONCE Comment: Protocol Order Physician Instructions: Greater than 3 points order OT Admission Screening Reason For Exam: Triggered on Admission Diagnosis: rib fractures Open Wound/Cellutlitis/Pressure Ulcers: No Acute Fx/ORIF/Change in wt bearing status: No Severe MUSCULOSKELETAL pain: No ADL Dysfunction: No Acute CVA w/Hemiparesis/Hemiplegia: No Decreased Functional Mobility/Strength: Yes Sprain/Strain: Yes Acute Post-op Mobility Dysfunction: No Total Points: 4 PT Screen per Nursing Assess ONCE Comment: Protocol Order Physician Instructions: Greater than 3 points order PT Admission Screenin Reason For Exam: Triggered on Admission Diagnosis: rib fractures Open Wound/Cellutlitis/Pressure Ulcers: No Acute Fx/ORIF/Change in wt bearing status: No Severe MUSCULOSKELETAL pain: No ADL Dysfunction: No Acute CVA w/Hemiparesis/Hemiplegia: No Decreased Functional Mobility/Strength: Yes Sprain/Strain: Yes Acute Post-op Mobility Dysfunction: No Total Points: 4 Smoking Cessation Education ONCE Comment: Diagnosis: rib fractures Smoking Status: Current every day smoker How long have you smoked: 24 years Do you dip or chew tobacco: No 01/30/21 04:47 Respiratory Therapy Assessment DAILY Comment: Diagnosis: rib fractures - Discharge Disposition: Home, Self-Care Condition: Stable Prescriptions: Continue Lorazepam 1 mg [Ativan 1 MG] 1 mg PO DAILY Montelukast Sodium 10 mg [Singulair 10 MG] 10 mg PO DAILY Albuterol 2.5 mg/3 ml Neb [Proventil 2.5 mg/3 ml Neb] 2.5 mg IH DAILY PRN PRN PRN Reason: Shortness Of Breath Hydrocodone/APAP 10/325 mg [[place] 10/325 MG TableT] 1 tab PO Q6H PRN PRN PRN Reason: Pain Albuterol 8 gm Mdi Hfa [Ventolin Hfa MDI] 2 puff IH QID lisinopriL [Zestril] 2.5 mg PO DAILY Ferrous Sulfate 325 mg [Feosol 325 mg] 325 mg PO TID [place]-3 Fatty Acids/Fish Oil [Fish Oil 1,000 mg Capsule] 1,000 mg PO QID Vitamin E 200 unit PO TID Insulin Aspart [Novolog] 23 units SQ TIDWMEALS Insulin Degludec [Tresiba Flextouch U-100] 74 units SQ DAILY Rosuvastatin Calcium 5 mg PO DAILY Instructions: Rib Fracture (DC) Forms: Discharge Instructions
== END 2021-01-30 10:13 | disposition home or self-care (01) ==
LOC: ED 19:57 → MED SURG 01-30 00:06
PROVIDERS: ADMIT Family Medicine; ATTEND Family Medicine
DX: S22.41XA Multiple fractures of ribs, right side, initial encounter for closed fracture (principal); Z79.899 Other long term (current) drug therapy; I10 Essential (primary) hypertension; E11.9 Type 2 diabetes mellitus without complications; Z20.828 Contact with and (suspected) exposure to other viral communicable diseases
CPT/HCPCS: 0241U; 36000; 36415; 74176; 80053; 81001; 82150; 83605; 83690; 85025; 94640; 94760; 96374; 96375; 96376; 99285; G0378; J1170; J2405; A9270-GY

== ENCOUNTER 2021-09-03 20:38 | Emergency (ER) | payer MEDICARE ==
[2021-09-03] MEDS ORDERED: Zofran 4 MG/2 ML VIAL IV ONE (21:30)
[2021-09-03] MEDS ORDERED: TYLENOL 325 MG PO ONE (21:30)
[2021-09-03] MEDS ORDERED: TORAdol 30 mg Injection IV ONE (21:30)
[2021-09-03] MEDS ORDERED: Zofran 4 MG/2 ML VIAL ONE (21:47)
[2021-09-03] MEDS ORDERED: TORAdol 30 mg Injection ONE (21:47)
[2021-09-03] MEDS ORDERED: TYLENOL 325 MG ONE (21:47)
[2021-09-03 21:54] LABS: Appearance CLEAR (CLEAR); Bilirubin NEGATIVE (NEGATIVE); Blood NEGATIVE Ery/ul (0-5); Epithelial Cells RARE /HPF (FEW); Glucose NEGATIVE (NEGATIVE); Ketones NEGATIVE (NEGATIVE); Leukocyte Esterase NEGATIVE (NEGATIVE); Mucus SLIGHT /HPF (NEGATIVE); Nitrite NEGATIVE (NEGATIVE); Protein,Urine Dip 30 (Negative); Specific Gravity 1.015 (1.005-1.025); Urobilinogen NEGATIVE mg/dL (0-1)
[2021-09-03 22:05] LABS: Absolute Neutrophil Ct (ANC) 5.33 (1.4-6.9); BASOPHIL % 0.3 % (0.0-0.4); Basophil (Absolute #) 0.03 (0-0.4); Eosinophil (Absolute #) 0.17 (0-0.5); Hematocrit 41.1 % (35-47); Hemoglobin 12.5 gm/dl (12.0-16.0); Lymphocyte (Absolute #) 2.65 (1.0-4.6); Lymphocytes % 30.8 % (24.0-44.0); Mean Cell Volume 82.2 fl (78-100); Mean Corpuscular Hgb Concent. 30.4 g/dl (32-36); Mean Platelet Volume 11.4 fl (7.5-11.0); Monocyte (Absolute #) 0.42 (0.0-1.3); Monocytes % 4.9 % (0.0-12.0); Platelet Count 225 K/mm3 (150-450); Red Cell Distribution Width 14.9 % (11.5-14.0); White Blood Count 8.6 K/mm3 (4.0-10.5)
[2021-09-03 22:16] LABS: ALBUMIN 3.9 g/dL (3.5-5.0); ALKALINE PHOSPHATASE 77 U/L (38-126); ANION GAP 13.3 MEQ/L (5-15); BLOOD UREA NITROGEN 7 mg/dL (7-17); CHLORIDE 102 mmol/L (98-107); Calcium 8.7 mg/dL (8.4-10.2); Carbon Dioxide 26 mmol/L (22-30); Creatinine 1 0.63 mg/dL (0.52-1.04); EST GLOMERULAR FILTRATION RATE > 60.0 ML/MIN; Glucose 139 mg/dL (74-106); LIPASE 25 U/L (23-300); Potassium 3.7 mmol/L (3.5-5.1); SGOT/AST 22 U/L (14-36); SGPT/ALT 20 U/L (0-35); SODIUM 137 mmol/L (137-145); Total Protein 6.9 g/dL (6.3-8.2)
--- NOTE | 2021-09-03 22:56 | ERPHSYRPT ---
- History of Present Illness Time Seen by Provider: 09/03/21 20:40 Source: patient Exam Limitations: no limitations Patient Subjective Stated Complaint: The ribs on the rt side, lower, are hurting. Or it may be my liver because it's swollen and I have a fatty liver. Triage Nursing Assessment: Pt c/o burning with urination x1 week, and is improve d at this time. Pt c/o rt lower rib pain/RUQ abd pain. Pt states, "My ribs didn't hurt until I unloaded straw on 09/01/21". After that, the ribs have been hurting and pt has broken ribs at that spot in June and also has a fatty liver that is swollen. Abd obese, with active bs x4 quad, nontender on palpation. Pt c/o pain on palpation to Rt lower rib area. Physician History: Patient is here with right upper back pain, right upper quadrant pain. Also UTI-like symptoms. Patient states that 2 days ago she started trying to move a bale of hay. States that she strained her back. Went into her abdomen. She has been taking Vicodin at home. She has not tried any Tylenol or ibuprofen. No other falls or trauma. Also complains of UTI-like symptoms for 1 week. Timing/Duration: today, week(s) Severity: moderate Modifying Factors: Improves With: eating, medication Associated Symptoms: denies symptoms Allergies/Adverse Reactions: carisoprodol [From Soma] Allergy (Intermediate, Verified 09/03/21 21:07) buprenorphine Allergy (Verified 09/03/21 21:07) codeine [Codeine] Allergy (Verified 09/03/21 21:07) cyclobenzaprine HCl [From Flexeril] Allergy (Verified 09/03/21 21:07) duloxetine [From Cymbalta] Allergy (Verified 09/03/21 21:07) morphine Allergy (Verified 09/03/21 21:07) Penicillins Allergy (Verified 09/03/21 21:07) Sulfa (Sulfonamide Antibiotics) [Sulfa(Sulfonamide Antibiotics)] Allergy (Verified 09/03/21 21:07) glipizide Adverse Reaction (Verified 09/03/21 21:07) metformin Adverse Reaction (Verified 09/03/21 21:07) Home Medications: Albuterol 2.5 mg/3 ml Neb [Proventil 2.5 mg/3 ml Neb] 2.5 mg IH DAILY PRN PRN 05/16/14 [History] Lorazepam 1 mg [Ativan 1 MG] 1 mg PO DAILY 05/16/14 [History] Montelukast Sodium 10 mg [Singulair 10 MG] 10 mg PO DAILY 05/16/14 [History] Albuterol 8 gm Mdi Hfa [Ventolin Hfa MDI] 2 puff IH QID 11/21/16 [History] Hydrocodone/APAP 10/325 mg [[place] 10/325 MG TableT] 1 tab PO Q6H PRN PRN 11/21/16 [History] Ferrous Sulfate 325 mg [Feosol 325 mg] 325 mg PO TID 12/22/17 [History] lisinopriL [Zestril] 2.5 mg PO DAILY 12/22/17 [History] [place]-3 Fatty Acids/Fish Oil [Fish Oil 1,000 mg Capsule] 1,000 mg PO QID [History] Vitamin E 200 unit PO TID 07/25/18 [History] Insulin Aspart [Novolog] 23 units SQ TIDWMEALS 01/30/21 [History] Insulin Degludec [Tresiba Flextouch U-100] 74 units SQ DAILY 01/30/21 [History] Rosuvastatin Calcium 5 mg PO DAILY 01/30/21 [History] Hx Tetanus, Diphtheria Vaccination/Date Given: Yes Hx Influenza Vaccination/Date Given: No Hx Pneumococcal Vaccination/Date Given: No Immunizations Up to Date: Yes Travel Risk - International Travel Have you traveled outside of the country in past 3 weeks: No - Coronavirus Screening Close contact with a COVID-19 positive Pt in past 14-21 Days: No - Vaccine Status Have you recieved a Covid-19 vaccination: No - Review of Systems Constitutional: No Fever, No Chills Eyes: No Symptoms Ears, Nose, & Throat: No Symptoms Respiratory: No Cough, No Dyspnea Cardiac: No Chest Pain, No Edema, No Syncope Abdominal/Gastrointestinal: No Abdominal Pain, No Nausea, No Vomiting, No Diarrhea Genitourinary Symptoms: No Dysuria Musculoskeletal: Other (Right upper back pain, right upper quadrant pain.), No Back Pain, No Neck Pain Skin: No Rash Neurological: No Dizziness, No Focal Weakness, No Sensory Changes Psychological: No Symptoms Endocrine: No Symptoms All Other Systems: Reviewed and Negative - Past Medical History Pertinent Past Medical History: Yes Neurological History: Migraines ENT History: Glaucoma Cardiac History: High Cholesterol, Hypertension Respiratory History: Asthma, Bronchitis, COPD, Pneumonia Endocrine Medical History: Diabetes Type II, Liver Disease Musculoskeletal History: Other GI Medical History: Gallbladder Disease, Other History: Other Psycho-Social History: Anxiety, Other Female Reproductive Disorders: No Pertinent History Other Medical History: L SPINE FUSION 2010; R LE SURGERY AFTER WORK INJURY PERALYSIS OF THE BOWEL, STRESS INCONTINENT. RIGHT RIP FRACTURES. ANEMIA. 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 rt leg cadav. lumbar cadav bones. KIDNEY STONES REMOVED. L SPINE FUSION 2010; R LE SURGERY AFTER WORK INJURY - Social History Smoking Status: Current every day smoker How long have you smoked: 22 yrs Exposure to second hand smoke: No Drug Use: none Patient Lives Alone: No Significant Family History: no pertinent family hx - Female History Hx Now: No - Nursing Vital Signs Nursing Vital Signs: Initial Vital Signs Temperature 98.2 F 09/03/21 20:56 Pulse Rate 80 09/03/21 20:56 Respiratory Rate 24 09/03/21 20:56 Blood Pressure 141/67 09/03/21 20:56 O2 Sat by Pulse Oximetry 98 09/03/21 20:56 Pain Scale Pain Intensity 3 - Physical Exam General Appearance: no apparent distress, alert Eye Exam: PERRL/EOMI, eyes nml inspection Ears, Nose, Throat Exam: normal ENT inspection, TMs normal, pharynx normal, moist mucous membranes Neck Exam: normal inspection, non-tender, supple, full range of motion Respiratory Exam: normal breath sounds, lungs clear, other (Right upper back tenderness to palpation), No respiratory distress Cardiovascular Exam: regular rate/rhythm, normal heart sounds, normal peripheral pulses Gastrointestinal/Abdomen Exam: soft, normal bowel sounds, tenderness, other (Right upper quadrant tenderness to palpation), No mass Back Exam: normal inspection, normal range of motion, No CVA tenderness, No vertebral tenderness Extremity Exam: normal inspection, normal range of motion, pelvis stable Neurologic Exam: alert, oriented x 3, cooperative, normal mood/affect, nml cerebellar function, nml station & gait, sensation nml, No motor deficits Skin Exam: normal color, warm, dry, No rash Lymphatic Exam: No adenopathy SpO2: 94 - Course Nursing assessment & vital signs reviewed: Yes EKG Interpreted by Me: Sinus Rhythm Ordered Tests: Active Orders 24 hr Category Date Time Status EKG-ER Only STAT Care 09/03/21 21:30 Active IV Insertion STAT Care 09/03/21 21:30 Active ABDOMEN AND PELVIS W CONTRAST [CT] Stat Exams 09/03/21 22:30 Taken CHEST WITH CONTRAST [CT] Stat Exams 09/03/21 22:29 Taken CBC W DIFF Stat Lab 09/03/21 22:00 Completed CMP Stat Lab 09/03/21 22:00 Completed HCG,QUALITATIVE URINE Stat Lab 09/03/21 20:56 Completed LIPASE Stat Lab 09/03/21 22:00 Completed TROPONIN Q3H Lab 09/03/21 22:00 Completed TROPONIN Q3H Lab 09/04/21 00:45 Ordered TROPONIN Q3H Lab 09/04/21 03:45 Ordered TROPONIN Q3H Lab 09/04/21 06:45 Ordered TROPONIN Q3H Lab 09/04/21 09:45 Ordered UA W/RFX UR CULTURE Stat Lab 09/03/21 20:56 Completed Medication Summary Discontinued Medications Generic Name Dose Route Start Last Admin Trade Name Felisha PRN Reason Stop Dose Admin Acetaminophen 975 mg 09/03/21 21:30 09/03/21 21:49 Acetaminophen 325 Mg Tablet PO 09/03/21 21:31 975 mg STAT ONE Administration Acetaminophen Confirm 09/03/21 21:47 Acetaminophen 325 Mg Tablet Administered 09/03/21 21:48 Dose 975 mg .ROUTE .STK-MED ONE Ketorolac Tromethamine 30 mg 09/03/21 21:30 09/03/21 21:49 Ketorolac Tromethamine 30 Mg/Ml Inj IV 09/03/21 21:31 30 mg STAT ONE Administration Ketorolac Tromethamine Confirm 09/03/21 21:47 Ketorolac Tromethamine 30 Mg/Ml Inj Administered 09/03/21 21:48 Dose 30 mg .ROUTE .STK-MED ONE Ondansetron HCl 4 mg 09/03/21 21:30 09/03/21 21:49 Ondansetron Hcl 4 Mg/2 Ml Vial IV 09/03/21 21:31 4 mg STAT ONE Administration Ondansetron HCl Confirm 09/03/21 21:47 Ondansetron Hcl 4 Mg/2 Ml Vial Administered 09/03/21 21:48 Dose 4 mg .ROUTE .STK-MED ONE Lab/Rad Data: Laboratory Result Diagrams 09/03/21 22:00 09/03/21 22:00 Laboratory Results 09/03/21 09/03/21 09/03/21 Range/Units 22:00 22:00 22:00 WBC 8.6 (4.0-10.5) K/mm3 RBC 5.00 (4.1-5.4) M/mm3 Hgb 12.5 (12.0-16.0) gm/dl Hct 41.1 (35-47) % MCV 82.2 (78-100) fl MCH 25.0 L (26-32) pg MCHC 30.4 L (32-36) g/dl RDW 14.9 H (11.5-14.0) % Plt Count 225 (150-450) K/mm3 MPV 11.4 H (7.5-11.0) fl Gran % 62.0 (36.0-66.0) % Eos # (Auto) 0.17 (0-0.5) Absolute Lymphs (auto) 2.65 (1.0-4.6) Absolute Monos (auto) 0.42 (0.0-1.3) Lymphocytes % 30.8 (24.0-44.0) % Monocytes % 4.9 (0.0-12.0) % Eosinophils % 2.0 (0.00-5.0) % Basophils % 0.3 (0.0-0.4) % Absolute Granulocytes 5.33 (1.4-6.9) Basophils # 0.03 (0-0.4) Sodium 137 (137-145) mmol/L Potassium 3.7 (3.5-5.1) mmol/L Chloride 102 (98-107) mmol/L Carbon Dioxide 26 (22-30) mmol/L Anion Gap 13.3 (5-15) MEQ/L BUN 7 (7-17) mg/dL Creatinine 0.63 (0.52-1.04) mg/dL Estimated GFR > 60.0 ML/MIN Glucose 139 H (74-106) mg/dL Calcium 8.7 (8.4-10.2) mg/dL Total Bilirubin 0.50 (0.2-1.3) mg/dL AST 22 (14-36) U/L ALT 20 (0-35) U/L Alkaline Phosphatase 77 (38-126) U/L Troponin I < 0.012 (0.000-0.034) ng/mL Serum Total Protein 6.9 (6.3-8.2) g/dL Albumin 3.9 (3.5-5.0) g/dL Lipase 25 (23-300) U/L Urine Color (YELLOW) Urine Appearance (CLEAR) Urine pH (5-6) Ur Specific [place] (1.005-1.025) Urine Protein (Negative) Urine Ketones (NEGATIVE) Urine Blood (0-5) [place]/ul Urine Nitrite (NEGATIVE) Urine Bilirubin (NEGATIVE) Urine Urobilinogen (0-1) mg/dL Ur Leukocyte Esterase (NEGATIVE) Urine WBC (Auto) (0-5) /HPF Urine RBC (Auto) (0-2) /HPF U Epithel Cells (Auto) (FEW) /HPF Urine Bacteria (Auto) (NEGATIVE) /HPF Urine Mucus (Auto) (NEGATIVE) /HPF Urine Culture Reflexed (NO) Urine Glucose (NEGATIVE) mg/dL Urine HCG, Qual (Negative) 09/03/21 09/03/21 Range/Units 20:56 20:56 WBC (4.0-10.5) K/mm3 RBC (4.1-5.4) M/mm3 Hgb (12.0-16.0) gm/dl Hct (35-47) % MCV (78-100) fl MCH (26-32) pg MCHC (32-36) g/dl RDW (11.5-14.0) % Plt Count (150-450) K/mm3 MPV (7.5-11.0) fl Gran % (36.0-66.0) % Eos # (Auto) (0-0.5) Absolute Lymphs (auto) (1.0-4.6) Absolute Monos (auto) (0.0-1.3) Lymphocytes % (24.0-44.0) % Monocytes % (0.0-12.0) % Eosinophils % (0.00-5.0) % Basophils % (0.0-0.4) % Absolute Granulocytes (1.4-6.9) Basophils # (0-0.4) Sodium (137-145) mmol/L Potassium (3.5-5.1) mmol/L Chloride (98-107) mmol/L Carbon Dioxide (22-30) mmol/L Anion Gap (5-15) MEQ/L BUN (7-17) mg/dL Creatinine (0.52-1.04) mg/dL Estimated GFR ML/MIN Glucose (74-106) mg/dL Calcium (8.4-10.2) mg/dL Total Bilirubin (0.2-1.3) mg/dL AST (14-36) U/L ALT (0-35) U/L Alkaline Phosphatase (38-126) U/L Troponin I (0.000-0.034) ng/mL Serum Total Protein (6.3-8.2) g/dL Albumin (3.5-5.0) g/dL Lipase (23-300) U/L Urine Color YELLOW (YELLOW) Urine Appearance CLEAR (CLEAR) Urine pH 7.0 (5-6) Ur Specific [place] 1.015 (1.005-1.025) Urine Protein 30 (Negative) Urine Ketones NEGATIVE (NEGATIVE) Urine Blood NEGATIVE (0-5) Benson/ul Urine Nitrite NEGATIVE (NEGATIVE) Urine Bilirubin NEGATIVE (NEGATIVE) Urine Urobilinogen NEGATIVE (0-1) mg/dL Ur Leukocyte Esterase NEGATIVE (NEGATIVE) Urine WBC (Auto) NONE (0-5) /HPF Urine RBC (Auto) NONE (0-2) /HPF U Epithel Cells (Auto) RARE (FEW) /HPF Urine Bacteria (Auto) NONE (NEGATIVE) /HPF Urine Mucus (Auto) SLIGHT (NEGATIVE) /HPF Urine Culture Reflexed NO (NO) Urine Glucose NEGATIVE (NEGATIVE) mg/dL Urine HCG, Qual NEGATIVE (Negative) - Progress Progress: improved, pain not gone completely Progress Note: 09/03/21 22:56 We'll obtain basic labs, fluids, EKG, troponin, chest x-ray - I feel comfortable with one time negative troponin given symptoms have improved and started greater then 6 hours ago. - EKG shows no ST changes - my read. See full read below. - O2 saturations consistently greater than 95%. We obtain a CT scan of the chest, abdomen, pelvis. This will be looking for any fractures, abdominal abnormalities, kidney stone. 09/03/21 23:34 CTs findings are without traumatic disease. There is some mild mediastinal lym phadenopathy. Left-sided nephrolithiasis without obstruction. Patient having no pain there. Patient will need close follow-up with PCP. Return here for any new or changing symptoms. Patient states understanding and will follow-up as described. Plan of care was discussed with patient and all questions answered. The patient is agreeable to be discharged home and both verbal and printed discharge instructions were provided.The patient agreed to seek outpatient follow up as discussed. The patient was given strict instructions to return to the emergency department for worsening symptoms or any other emergent concerns. The patient verbalized understanding. Counseled pt/family regarding: lab results, diagnosis, need for follow-up - Departure Departure Disposition: Home Clinical Impression: Back pain, Right upper quadrant pain Condition: Stable Critical Care Time: No Referrals: JAI AGUERO NP [Primary Care Provider] - Instructions: Bruised Rib
[2021-09-04 00:32] VITALS: BP 109/83; PULSE 66; O2SAT 96
--- NOTE | 2021-09-04 08:45 | XRAY ---
Indication: Left back and right upper quadrant pain following fall. Multiple contiguous axial images obtained through the chest using 100 cc Isovue 370 contrast. Comparison: None Lungs demonstrates mild bibasilar subsegmental atelectasis/scarring left greater than right. Small right lower lobe calcified granuloma. No suspicious pulmonary mass, infiltrate, effusion, or pneumothorax. Heart borderline enlarged. Aorta is normal in course and caliber. Tiny mediastinal and right hilar calcified nodes. No pathologic mediastinal/hilar lymphadenopathy. Bony thorax intact with old right 8/[address] abdomen/pelvis reported separately. Impression: 1. Borderline cardiomegaly, bibasilar atelectasis/scarring, old right rib fractures, and old granulomatous disease. 2. Remaining CT chest with contrast exam is negative. Comment: Preliminary interpretation made by [facility]. No critical discrepancy.
--- NOTE | 2021-09-04 08:50 | XRAY ---
Indication: Left back and right upper quadrant pain following fall. Multiple contiguous axial images obtained through the abdomen and pelvis using 100 cc Isovue 370 contrast. Comparison: January 29, 2021. CT chest reported separately. Noncontrasted stomach and bowel loops appear nonobstructed again with mild scattered colonic diverticulosis. No free fluid/air. Again 21.1 cm fatty hepatomegaly, 14.6 cm splenomegaly, nonobstructing left renal micro-calculus, and cholecystectomy. No free fluid/air. Remaining liver, pancreas, spleen, adrenal glands, kidneys, ureters, bladder, uterus, and aorta appear unremarkable. No pathologic retroperitoneal lymphadenopathy. Osseous structures intact again with lumbosacral junction degenerative changes. Stable small fatty right inguinal hernia. Impression: 1. Again colonic diverticulosis, fatty hepatomegaly, splenomegaly, nonobstructing left renal micro-calculus, and small fatty right inguinal hernia. 2. Remaining CT abdomen/pelvis with contrast exam is negative. Comment: Preliminary interpretation made by [facility]. No critical discrepancy.
== END 2021-09-04 00:28 | disposition home or self-care (01) ==
LOC: ED 20:38
DX: R10.11 Right upper quadrant pain (principal)
CPT/HCPCS: 36000; 36415; 71260; 74177; 80053; 81001; 83690; 84484; 84703; 85025; 93005; 96374; 96375; 99284; J1885; J2405; A9270-GY

== ENCOUNTER 2022-02-13 13:53 | Emergency (ER) | payer MEDICARE ==
--- NOTE | 2022-02-13 13:59 | ERPHSYRPT ---
- History of Present Illness Time Seen by Provider: 02/13/22 13:59 Historian: patient Exam Limitations: no limitations Physician History: This is a 51-year-old morbidly obese white female who has a history of sarcoidosis, diabetes, hypertension, elevated cholesterol, COPD, asthma, bronchitis, chronic low back pain, anxiety issues. Patient does have a pain specialist. She presents with right upper quadrant and right lateral upper abdominal pain. It is been present intermittently for several years. She is on chronic Vicodin and has steroids at home. However she tries not to take the steroids because she is a diabetic. She is used ibuprofen as well. [place] 2 days ago, she started having breakthrough pain which she intermittently does. Her Vicodin and ibuprofen are not helping. This patient has been evaluated several times by several different people for this particular pain complaint. Patient is a chronic every day smoker of cigarettes. Timing/Duration: day(s) (2) Activities at Onset: none Quality: sharpness, stabbing Abdominal Pain Onset Location: RUQ (Right upper lateral abdominal wall and lower rib margin on the right side) Pain Radiation: no radiation Severity of Pain-Max: moderate Severity of Pain-Current: moderate Modifying Factors: Improves With: movement (Worsens), palpation (Worsens) Associated Symptoms: denies symptoms Previous symptoms: same symptoms as today Allergies/Adverse Reactions: carisoprodol [From Soma] Allergy (Intermediate, Verified 02/13/22 14:08) buprenorphine Allergy (Verified 02/13/22 14:08) codeine [Codeine] Allergy (Verified 02/13/22 14:08) cyclobenzaprine HCl [From Flexeril] Allergy (Verified 02/13/22 14:08) duloxetine [From Cymbalta] Allergy (Verified 02/13/22 14:08) morphine Allergy (Verified 02/13/22 14:08) Penicillins Allergy (Verified 02/13/22 14:08) Sulfa (Sulfonamide Antibiotics) [Sulfa(Sulfonamide Antibiotics)] Allergy (Verified 02/13/22 14:08) glipizide Adverse Reaction (Verified 02/13/22 14:08) metformin Adverse Reaction (Verified 02/13/22 14:08) Home Medications: Albuterol 2.5 mg/3 ml Neb [Proventil 2.5 mg/3 ml Neb] 2.5 mg IH DAILY PRN PRN 05/16/14 [History] Lorazepam 1 mg [Ativan 1 MG] 1 mg PO DAILY 05/16/14 [History] Montelukast Sodium 10 mg [Singulair 10 MG] 10 mg PO DAILY 05/16/14 [History] Albuterol 8 gm Mdi Hfa [Ventolin Hfa MDI] 2 puff IH QID 11/21/16 [History] Hydrocodone/APAP 10/325 mg [[place] 10/325 MG TableT] 1 tab PO Q6H PRN PRN 11/21/16 [History] Ferrous Sulfate 325 mg [Feosol 325 mg] 325 mg PO TID 12/22/17 [History] lisinopriL [Zestril] 2.5 mg PO DAILY 12/22/17 [History] [place]-3 Fatty Acids/Fish Oil [Fish Oil 1,000 mg Capsule] 1,000 mg PO QID 07/25/18 [History] Vitamin E 200 unit PO TID 07/25/18 [History] Insulin Aspart [Novolog] 23 units SQ TIDWMEALS 01/30/21 [History] Insulin Degludec [Tresiba Flextouch U-100] 74 units SQ DAILY 01/30/21 [History] Rosuvastatin Calcium 5 mg PO DAILY 01/30/21 [History] Hx Tetanus, Diphtheria Vaccination/Date Given: Yes Hx Influenza Vaccination/Date Given: No Hx Pneumococcal Vaccination/Date Given: No Travel Risk - International Travel Have you traveled outside of the country in past 3 weeks: No - Coronavirus Screening Are you exhibiting any of the following symptoms?: No Close contact with a COVID-19 positive Pt in past 14-21 Days: No - Vaccine Status Have you recieved a Covid-19 vaccination: No - Review of Systems Constitutional: No Symptoms Eyes: No Symptoms Ears, Nose, & Throat: No Symptoms Respiratory: No Symptoms Cardiac: No Symptoms Abdominal/Gastrointestinal: Abdominal Pain (Right upper quadrant and right lateral abdominal pain) Genitourinary Symptoms: No Symptoms Musculoskeletal: No Symptoms Skin: No Symptoms Neurological: No Symptoms Psychological: No Symptoms Endocrine: No Symptoms Hematologic/Lymphatic: No Symptoms Immunological/Allergic: No Symptoms All Other Systems: Reviewed and Negative - Past Medical History Pertinent Past Medical History: Yes Neurological History: Migraines ENT History: Glaucoma Cardiac History: High Cholesterol, Hypertension Respiratory History: Asthma, Bronchitis, COPD, Pneumonia Endocrine Medical History: Diabetes Type II, Liver Disease Musculoskeletal History: Other GI Medical History: Gallbladder Disease, Other History: Other Psycho-Social History: Anxiety, Other Female Reproductive Disorders: No Pertinent History Other Medical History: L SPINE FUSION 2010; R LE SURGERY AFTER WORK INJURY PERALYSIS OF THE BOWEL, STRESS INCONTINENT. RIGHT RIP FRACTURES. ANEMIA. 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 rt leg cadav. lumbar cadav bones. KIDNEY STONES REMOVED. L SPINE FUSION 2010; R LE SURGERY AFTER WORK INJURY - Social History Smoking Status: Current every day smoker How long have you smoked: 22 yrs Exposure to second hand smoke: No Drug Use: none Patient Lives Alone: No Significant Family History: no pertinent family hx - Nursing Vital Signs Nursing Vital Signs: Initial Vital Signs Temperature 96.7 F 02/13/22 14:10 Pulse Rate 70 02/13/22 14:10 Respiratory Rate 18 02/13/22 14:10 Blood Pressure 159/100 02/13/22 14:10 O2 Sat by Pulse Oximetry 100 02/13/22 14:10 Pain Scale Pain Intensity 5 - Physical Exam General Appearance: no apparent distress, alert, anxiety, obese Eye Exam: PERRL/EOMI, eyes nml inspection Ears, Nose, Throat Exam: normal ENT inspection, moist mucous membranes Neck Exam: normal inspection, non-tender, supple, full range of motion Respiratory Exam: normal breath sounds, lungs clear, airway intact, No chest tenderness, No respiratory distress Cardiovascular Exam: regular rate/rhythm, normal heart sounds, normal peripheral pulses Gastrointestinal/Abdomen Exam: soft, normal bowel sounds, tenderness Pelvic Exam: not done Rectal Exam: not done Back Exam: normal inspection, normal range of motion, No CVA tenderness, No vertebral tenderness Extremity Exam: normal inspection, normal range of motion, pelvis stable Neurologic Exam: alert, oriented x 3, cooperative, votator machine operator II-XII nml as tested, normal mood/affect, nml cerebellar function, nml station & gait, sensation nml Skin Exam: normal color, warm, dry Lymphatic Exam: No adenopathy SpO2 Interpretation: normal O2 Delivery: Room Air - Course Nursing assessment & vital signs reviewed: Yes Ordered Tests: Active Orders 24 hr Category Date Time Status ABDOMEN AND PELVIS W/0 CONTRAS [CT] Stat Exams 02/13/22 14:43 Completed Medication Summary Discontinued Medications Generic Name Dose Route Start Last Admin Trade Name Felisha PRN Reason Stop Dose Admin Hydromorphone HCl 1 mg 02/13/22 15:28 02/13/22 15:42 Hydromorphone 1 Mg/1ml Inj 1 Mg/Ml Syringe IM 02/13/22 15:29 1 mg STAT ONE Administration Hydromorphone HCl Confirm 02/13/22 15:34 Hydromorphone 1 Mg/1ml Inj 1 Mg/Ml Syringe Administered 02/13/22 15:35 Dose 1 mg .ROUTE .STK-MED ONE Prochlorperazine Edisylate 10 mg 02/13/22 15:28 02/13/22 15:41 Prochlorperazine Edisylate 10 Mg/2 Ml Vial IM 02/13/22 15:29 10 mg STAT ONE Administration Prochlorperazine Edisylate Confirm 02/13/22 15:35 Prochlorperazine Edisylate 10 Mg/2 Ml Vial Administered 02/13/22 15:36 Dose 10 mg .ROUTE .STK-MED ONE - Progress Progress: improved, pain not gone completely, re-examined Progress Note: 02/13/22 16:33 CAT scan of the abdomen pelvis without contrast shows no new or acute findings when compared to CAT scan of the abdomen pelvis dated 09/03/2021. There are no acute intra-abdominal or intrapelvic findings. Counseled pt/family regarding: diagnosis, need for follow-up, rad results - Departure Departure Disposition: Home Clinical Impression: Abdominal pain, chronic, right upper quadrant Condition: Stable Critical Care Time: No Referrals: JAI AGUERO [employer] FIELD TECHNICIAN [Primary Care Provider] - Follow up/PCP as directed Additional Instructions: Take your medications at home as prescribed. Follow-up with your pain specialist, primary care provider, and obtain a possible referral to a neurologist if indicated
[2022-02-13] MEDS ORDERED: Hydromorphone 1 mg/ml Injection IM ONE (15:28)
[2022-02-13] MEDS ORDERED: Compazine 10 MG/2 ML IM ONE (15:28)
[2022-02-13] MEDS ORDERED: Hydromorphone 1 mg/ml Injection ONE (15:34)
[2022-02-13] MEDS ORDERED: Compazine 10 MG/2 ML ONE (15:35)
[2022-02-13 16:13] VITALS: BP 143/62; PULSE 62; O2SAT 98
--- NOTE | 2022-02-13 16:30 | XRAY ---
Indication: Right abdomen pain. Multiple contiguous axial images obtained through the abdomen and pelvis without contrast. Comparison: September 03, 2021. Lung bases again demonstrates subsegmental atelectasis/scarring and small right lower lobe calcified granuloma. No infiltrate or effusion. Heart not enlarged. Noncontrasted stomach and bowel loops remain nonobstructed again with normal air-filled appendix. Again colonic diverticulosis, 21.5 cm fatty hepatomegaly, 13.7 cm splenomegaly, nonobstructing left renal microcalculus, and cholecystectomy. No free fluid/air. Remaining liver, pancreas, spleen, adrenal glands, kidneys, ureters, bladder, and aorta are unremarkable for noncontrast exam. Osseous structures intact again with lumbosacral junction degenerative changes. Stable small fatty right inguinal hernia. Impression: Stable CT abdomen/pelvis without contrast exam again demonstrating colonic diverticulosis, fatty hepatomegaly, splenomegaly, nonobstructing left renal microcalculus, and small fatty right inguinal hernia. No new/acute findings.
== END 2022-02-13 16:42 | disposition home or self-care (01) ==
LOC: ED 13:53
DX: G89.29 Other chronic pain (principal); R10.11 Right upper quadrant pain; E78.5 Hyperlipidemia, unspecified; I10 Essential (primary) hypertension; J44.9 Chronic obstructive pulmonary disease, unspecified; E11.9 Type 2 diabetes mellitus without complications; D86.9 Sarcoidosis, unspecified; Z79.4 Long term (current) use of insulin; Z79.891 Long term (current) use of opiate analgesic; Z79.899 Other long term (current) drug therapy; Z72.0 Tobacco use
CPT/HCPCS: 74176; 96372; 99284; J1170

== ENCOUNTER 2022-07-24 17:43 | Emergency (ER) | payer MEDICARE ==
[2022-07-24 18:06] VITALS: BP 193/93; PULSE 104; O2SAT 96
--- NOTE | 2022-07-24 19:11 | ERPHSYRPT ---
- History of Present Illness Source: patient Exam Limitations: no limitations Patient Subjective Stated Complaint: Pt c/o of left lateral foot pain for the past month, pain has been getting worse for the past week Triage Nursing Assessment: Pt brought self to the ER, hypertensive, rates pain as 6 with her vicodin and 12 without, pt developed a soft lump above where it is hurting a month ago and now it has began hurting worse, denies any injury, doesn't appear to be in any distress Physician History: 52 yo wf w L lateral foot pain x 1month. Pt denies trauma. Pain 4/10 and worse w weight bearing. Method of Injury: unknown Occurred: other (1 month) Quality: constant Severity of Pain-Max: moderate Severity of Pain-Current: mild Lower Extremities Pain: foot: left Modifying Factors: Improves With: movement Associated Symptoms: No unable to bear weight, No snapping sensation, No popping sensation Allergies/Adverse Reactions: carisoprodol [From Soma] Allergy (Intermediate, Verified 07/24/22 18:06) buprenorphine Allergy (Verified 07/24/22 18:06) codeine [Codeine] Allergy (Verified 07/24/22 18:06) cyclobenzaprine HCl [From Flexeril] Allergy (Verified 07/24/22 18:06) duloxetine [From Cymbalta] Allergy (Verified 07/24/22 18:06) morphine Allergy (Verified 07/24/22 18:06) Penicillins Allergy (Verified 07/24/22 18:06) Sulfa (Sulfonamide Antibiotics) [Sulfa(Sulfonamide Antibiotics)] Allergy (Veri fied 07/24/22 18:06) glipizide Adverse Reaction (Verified 07/24/22 18:06) metformin Adverse Reaction (Verified 07/24/22 18:06) Home Medications: Albuterol 2.5 mg/3 ml Neb [Proventil 2.5 mg/3 ml Neb] 2.5 mg IH DAILY PRN PRN 05/16/14 [History] Lorazepam 1 mg [Ativan 1 MG] 1 mg PO DAILY 05/16/14 [History] Montelukast Sodium 10 mg [Singulair 10 MG] 10 mg PO DAILY 05/16/14 [History] Albuterol 8 gm Mdi Hfa [Ventolin Hfa MDI] 2 puff IH QID 11/21/16 [History] Hydrocodone/APAP 10/325 mg [Hamler 10/325 MG TableT] 1 tab PO Q6H PRN PRN 11/21/16 [History] Ferrous Sulfate 325 mg [Feosol 325 mg] 325 mg PO TID 12/22/17 [History] lisinopriL [Zestril] 2.5 mg PO DAILY 12/22/17 [History] Mayflower-3 Fatty Acids/Fish Oil [Fish Oil 1,000 mg Capsule] 1,000 mg PO QID 07/25/18 [History] Vitamin E 200 unit PO TID 07/25/18 [History] Insulin Aspart [Novolog] 23 units SQ TIDWMEALS 01/30/21 [History] Insulin Degludec [Tresiba Flextouch U-100] 74 units SQ DAILY 01/30/21 [History] Rosuvastatin Calcium 5 mg PO DAILY 01/30/21 [History] Hx Tetanus, Diphtheria Vaccination/Date Given: Yes Hx Influenza Vaccination/Date Given: No Hx Pneumococcal Vaccination/Date Given: No Travel Risk - International Travel Have you traveled outside of the country in past 3 weeks: No - Coronavirus Screening Are you exhibiting any of the following symptoms?: No Close contact with a COVID-19 positive Pt in past 14-21 Days: No - Vaccine Status Have you recieved a Covid-19 vaccination: No - Review of Systems Constitutional: No Symptoms Eyes: No Symptoms Ears, Nose, & Throat: No Symptoms Respiratory: No Symptoms Cardiac: No Symptoms Abdominal/Gastrointestinal: No Symptoms Genitourinary Symptoms: No Symptoms Skin: No Symptoms Neurological: No Symptoms Psychological: No Symptoms Endocrine: No Symptoms Hematologic/Lymphatic: No Symptoms Immunological/Allergic: No Symptoms - Past Medical History Pertinent Past Medical History: Yes Neurological History: Migraines ENT History: Glaucoma Cardiac History: High Cholesterol, Hypertension Respiratory History: Asthma, Bronchitis, COPD, Pneumonia Endocrine Medical History: Diabetes Type II, Liver Disease Musculoskeletal History: Other GI Medical History: Gallbladder Disease, Other History: Other Psycho-Social History: Anxiety, Other Female Reproductive Disorders: No Pertinent History Other Medical History: L SPINE FUSION 2010; R LE SURGERY AFTER WORK INJURY PERALYSIS OF THE BOWEL, STRESS INCONTINENT. RIGHT RIP FRACTURES. ANEMIA. 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 rt leg cadav. lumbar cadav bones. KIDNEY STONES REMOVED. L SPINE FUSION 2010; R LE SURGERY AFTER WORK INJURY - Social History Smoking Status: Current every day smoker How long have you smoked: 22 yrs Exposure to second hand smoke: Yes Drug Use: none Patient Lives Alone: No Significant Family History: no pertinent family hx - Nursing Vital Signs Nursing Vital Signs: Initial Vital Signs Temperature 97.3 F 07/24/22 17:52 Pulse Rate 104 H 07/24/22 17:52 Blood Pressure 193/93 07/24/22 17:52 O2 Sat by Pulse Oximetry 96 07/24/22 17:52 Pain Scale Pain Intensity 10 Hypertensive - Physical Exam General Appearance: no apparent distress Eyes, Ears, Nose, Throat Exam: normal ENT inspection, TMs normal, pharynx normal, moist mucous membranes Neck Exam: normal inspection, non-tender, supple, full range of motion, No Brudzinski, No Kernig's, No meningismus, No carotid bruit Cardiovascular/Respiratory Exam: normal breath sounds, regular rate/rhythm, heart sounds normal Gastrointestinal/Abdominal Exam: non-tender, soft, no organomegaly Back Exam: normal inspection Hips Exam: bilateral: non-tender, normal inspection, normal range of motion, no evidence of injury Legs Exam: bilateral leg: non-tender, normal inspection, normal range of motion, no evidence of injury Knees Exam: bilateral knee: non-tender, normal inspection, normal range of motion, no evidence of injury Ankle Exam: bilateral ankle: non-tender, normal inspection, normal range of motion, no evidence of injury Foot Exam: left foot: soft tissue tenderness (TTP L lateral foot/No deformity/No ecchymosis/Mild edema/Good pedal pulse, distal sensation, and capillary return) DTR - Lower Extremities Exam: knee (R): 2+, knee (L): 2+ Neuro/Tendon Exam: normal sensation, normal motor functions, normal tendon functions, responds to pain, no evidence tendon injury, No motor deficit, No sensory deficit Mental Status Exam: alert, oriented x 3, cooperative Skin Exam: normal color, warm, dry, No rash SpO2 Interpretation: normal SpO2: 96 O2 Delivery: Room Air - Course Nursing assessment & vital signs reviewed: Yes - Radiology Exams Foot X-ray Interpretation: Interpreted by me (L foot neg per ER read) Ordered Tests: Active Orders 24 hr Category Date Time Status Alexis Bandage Application -[facility] STAT Care 07/24/22 19:02 Completed Splint STAT Care 07/24/22 19:02 Completed FOOT (MINIMUM 3 VIEWS) Stat Exams 07/24/22 18:00 Taken - Progress Progress: improved Progress Note: 07/24/22 19:11 Pt refused all pain meds/Takes hydrocodone daily Alexis wrap/post-op shoe per nursing/NVI 07/24/22 19:45 Counseled pt/family regarding: diagnosis, need for follow-up, rad results - Departure Departure Disposition: Home Clinical Impression: Contusion of foot, left Condition: Stable Critical Care Time: No Referrals: JAI AGUERO NP [Primary Care Provider] - Follow up/PCP as directed RUBEN GARCIA DPM [ACTIVE STAFF] - Follow up/PCP as directed Instructions: Contusion (DC), Foot Sprain (DC) Additional Instructions: Weight bearing as tolerated Continue with home pain meds Follow up with your family MD or Dr. Cabrera
--- NOTE | 2022-07-25 08:43 | XRAY ---
Indication: Pain. Diabetic neuropathy. Comparison: None 3 nonweightbearing views left foot demonstrates small plantar/tiny posterior heel spurs. No other bony, articular, or soft tissue abnormalities.
== END 2022-07-24 19:22 | disposition home or self-care (01) ==
LOC: ED 17:43
DX: S90.32XA Contusion of left foot, initial encounter (principal); M79.672 Pain in left foot; E78.5 Hyperlipidemia, unspecified; I10 Essential (primary) hypertension; J44.9 Chronic obstructive pulmonary disease, unspecified; E11.9 Type 2 diabetes mellitus without complications; Z72.0 Tobacco use; Z79.4 Long term (current) use of insulin; Z79.899 Other long term (current) drug therapy
CPT/HCPCS: 73630; 99282

== ENCOUNTER 2023-01-08 20:00 | Emergency (ER) | payer MEDICARE ==
[2023-01-08] MEDS ORDERED: solu-MEDROL 125 MG, Sterile H2O 10 ml 2 ML IV ONE ×2 (20:50)
[2023-01-08] MEDS ORDERED: PROVENTIL 2.5 MG/3 ML NEB IH ONE ×2 (20:50→21:02)
[2023-01-08] MEDS ORDERED: Sterile H2O 10 ml IJ ONE (20:52)
[2023-01-08] MEDS ORDERED: solu-MEDROL ONE (20:52)
[2023-01-08 20:53] LABS: Absolute Neutrophil Ct (ANC) 5.69 x10^3/uL (1.4-6.9); BASOPHIL % 0.3 % (0.0-0.4); Basophil (Absolute #) 0.03 x10^3/uL (0-0.4); Eosinophil % 1.1 % (0.00-5.0); Hematocrit 40.9 % (35-47); Hemoglobin 12.3 g/dL (12.0-16.0); IMMATURE GRAN # 0.04 x10^3u/L (0.00-0.03); IMMATURE GRAN % 0.4 % (0.00-0.4); Lymphocyte (Absolute #) 3.03 x10^3/uL (1.0-4.6); Mean Cell Volume 83.6 fL (78-100); Mean Corpuscular Hemoglobin 25.2 pg (26-32); Mean Corpuscular Hgb Concent. 30.1 g/dL (32-36); Mean Platelet Volume 12.4 fL (7.5-11.0); Monocyte (Absolute #) 0.57 x10^3/uL (0.0-1.3); Neutrophil % 60.2 % (36.0-66.0); Platelet Count 217 x10^3/uL (150-450); Red Blood Count 4.89 x10^6/uL (4.1-5.4); Red Cell Distribution Width 13.2 % (11.5-14.0); White Blood Count 9.5 x10^3/uL (4.0-10.5)
[2023-01-08 21:00] LABS: ALBUMIN 4.1 g/dL (3.5-5.0); ALKALINE PHOSPHATASE 81 U/L (38-126); ANION GAP 9.2 MEQ/L (5-15); BLOOD UREA NITROGEN 12 mg/dL (7-17); CHLORIDE 102 mmol/L (98-107); Calcium 8.4 mg/dL (8.4-10.2); Carbon Dioxide 32 mmol/L (22-30); Creatinine 1 0.61 mg/dL (0.52-1.04); EST GLOMERULAR FILTRATION RATE > 60.0 ML/MIN; Glucose 138 mg/dL (74-106); Potassium 3.8 mmol/L (3.5-5.1); SGOT/AST 24 U/L (14-36); SGPT/ALT 25 U/L (0-35); SODIUM 139 mmol/L (137-145); Total Protein 7.2 g/dL (6.3-8.2)
[2023-01-08 21:12] VITALS: O2SAT 97
--- NOTE | 2023-01-08 23:34 | ERPHSYRPT ---
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 I have been doing inhalers and breathing treatments and taking prednisone at home." Triage Nursing Assessment: pt ambulatory to bed by self, pt alert and oriented x3, pt c/o shortness of breath the past 2 days, pt has hx of asthma, pt has been doing breathing treatments at home last one was at 1730, pt has been taken prednisone at home as well, pt has doctors appt in [place] with PCP tomorrow at 0800, pt states "She couldn't wait.". pt also c/o L rib pain since yesterday. pt states "I think i broke a rib from coughing so much." wheezing lung sounds heard throat Physician History: Patient is a 52-year-old female with a history of asthma presents to our ED with shortness of breath and a cough. Symptoms have been ongoing for approximately 2 days. Patient currently on prednisone daily. Patient utilized her inhaler at h ome with no significant improvement. Patient primarily came into our ED because of pain to her left rib. No trauma. No fever. No history of PE DVT. No calf pain. Patient advised that she currently has an appointment with her primary care doctor scheduled for tomorrow morning. Patient just wanted make sure that she did not have a left rib fracture. Symptoms are mild to moderate in intensity. No specific worsening improving factors. Patient currently on Vicodin at home for chronic pain. Patient otherwise feels well. She denies chest pain. Patient voices no other complaints at this time. Portions of this note were created with voice recognition technology. There may be grammatical, spelling, punctuation or sound alike errors Timing/Duration: today Severity: moderate Modifying Factors: Improves With: nothing Associated Symptoms: denies symptoms, No fever, No loss of appetite Allergies/Adverse Reactions: carisoprodol [From Soma] Allergy (Intermediate, Verified 01/08/23 20:04) buprenorphine Allergy (Verified 01/08/23 20:04) codeine [Codeine] Allergy (Verified 01/08/23 20:04) cyclobenzaprine HCl [From Flexeril] Allergy (Verified 01/08/23 20:04) duloxetine [From Cymbalta] Allergy (Verified 01/08/23 20:04) morphine Allergy (Verified 01/08/23 20:04) Penicillins Allergy (Verified 01/08/23 20:04) Sulfa (Sulfonamide Antibiotics) [Sulfa(Sulfonamide Antibiotics)] Allergy (Verified 01/08/23 20:04) glipizide Adverse Reaction (Verified 01/08/23 20:04) metformin Adverse Reaction (Verified 01/08/23 20:04) Home Medications: Albuterol 2.5 mg/3 ml Neb [Proventil 2.5 mg/3 ml Neb] 2.5 mg IH DAILY PRN PRN 05/16/14 [History] Lorazepam 1 mg [Ativan 1 MG] 1 mg PO DAILY 05/16/14 [History] Montelukast Sodium 10 mg [Singulair 10 MG] 10 mg PO DAILY 05/16/14 [History] Albuterol 8 gm Mdi Hfa [Ventolin Hfa MDI] 2 puff IH QID 11/21/16 [History] Hydrocodone/APAP 10/325 mg [Villalba 10/325 MG TableT] 1 tab PO Q6H PRN PRN 11/21/16 [History] [place]-3 Fatty Acids/Fish Oil [Fish Oil 1,000 mg Capsule] 1,000 mg PO QID 07/25/18 [History] Vitamin E 200 unit PO TID 07/25/18 [History] Insulin Aspart [Novolog] 23 units SQ TIDWMEALS 01/30/21 [History] Insulin Degludec [Tresiba Flextouch U-100] 74 units SQ DAILY 01/30/21 [History] Hx Tetanus, Diphtheria Vaccination/Date Given: Yes Hx Influenza Vaccination/Date Given: No Hx Pneumococcal Vaccination/Date Given: No Immunizations Up to Date: No Travel Risk - International Travel Have you traveled outside of the country in past 3 weeks: No - Coronavirus Screening Are you exhibiting any of the following symptoms?: No Close contact with a COVID-19 positive Pt in past 14-21 Days: No - Vaccine Status Have you recieved a Covid-19 vaccination: No - Review of Systems Constitutional: No Symptoms, No Fever, No Chills Eyes: No Symptoms Ears, Nose, & Throat: No Symptoms Respiratory: No Symptoms, No Cough, No Dyspnea Cardiac: No Symptoms, No Chest Pain, No Edema, No Syncope Abdominal/Gastrointestinal: No Symptoms, No Abdominal Pain, No Nausea, No Vomiting, No Diarrhea Genitourinary Symptoms: No Symptoms, No Dysuria Musculoskeletal: No Symptoms, No Back Pain, No Neck Pain Skin: No Symptoms, No Rash Neurological: No Symptoms, No Dizziness, No Focal Weakness, No Sensory Changes Psychological: No Symptoms Endocrine: No Symptoms Hematologic/Lymphatic: No Symptoms Immunological/Allergic: No Symptoms All Other Systems: Reviewed and Negative - Past Medical History Pertinent Past Medical History: Yes Neurological History: Migraines ENT History: Glaucoma Cardiac History: High Cholesterol, Hypertension Respiratory History: Asthma, Bronchitis, Pneumonia Endocrine Medical History: Diabetes Type I, Liver Disease Musculoskeletal History: Other GI Medical History: Gallbladder Disease, Other History: Other Psycho-Social History: Anxiety, Other Female Reproductive Disorders: No Pertinent History Other Medical History: L SPINE FUSION 2010; R LE SURGERY AFTER WORK INJURY PER ALYSIS OF THE BOWEL, STRESS INCONTINENT. RIGHT RIB FRACTURES. ANEMIA. 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 rt leg cadav. lumbar cadav bones. KIDNEY STONES REMOVED. L SPINE FUSION 2010; R LE SURGERY AFTER WORK INJURY - Social History Smoking Status: Current every day smoker How long have you smoked: 22 yrs Exposure to second hand smoke: Yes Drug Use: none Patient Lives Alone: No Significant Family History: no pertinent family hx - Nursing Vital Signs Nursing Vital Signs: Initial Vital Signs Temperature 97.8 F 01/08/23 20:00 Pulse Rate 74 01/08/23 20:00 Respiratory Rate 24 01/08/23 20:00 Blood Pressure 160/120 01/08/23 20:00 O2 Sat by Pulse Oximetry 97 01/08/23 20:00 Pain Scale Pain Intensity 8 - Physical Exam General Appearance: no apparent distress, alert Eye Exam: PERRL/EOMI, eyes nml inspection Ears, Nose, Throat Exam: normal ENT inspection, TMs normal, pharynx normal, moist mucous membranes Neck Exam: normal inspection, non-tender, supple, full range of motion Respiratory Exam: normal breath sounds, respiratory distress, diminished breath sounds, wheezing, other (Tenderness to palpation left rib 7, 8, 9. Palpation reproduces pain. Overlying soft tissue intact. No signs of trauma) Cardiovascular Exam: regular rate/rhythm, normal heart sounds, normal peripheral pulses Gastrointestinal/Abdomen Exam: soft, normal bowel sounds, No tenderness, No mass Back Exam: normal inspection, normal range of motion, No CVA tenderness, No vertebral tenderness Extremity Exam: normal inspection, normal range of motion, pelvis stable Neurologic Exam: alert, oriented x 3, cooperative, normal mood/affect, nml cerebellar function, nml station & gait, sensation nml, No motor deficits Skin Exam: normal color, warm, dry, No rash Lymphatic Exam: No adenopathy SpO2 Interpretation: normal SpO2: 97 O2 Delivery: Room Air - Course Nursing assessment & vital signs reviewed: Yes EKG Interpreted by Me: RATE (76), Sinus Rhythm, NORMAL AXIS, NORMAL INTERVALS - Radiology Exams Chest X-ray Interpretation: Interpreted by me (Normal heart lungs and bony thorax. Calcified granuloma right base. No acute findings) Ordered Tests: Active Orders 24 hr Category Date Time Status Advice Line Rn STAT Care 01/08/23 20:49 Active EKG-ER Only STAT Care 01/08/23 20:44 Active IV Insertion STAT Care 01/08/23 20:49 Active Pulse Oximetry (ED) STAT Care 01/08/23 20:49 Active CHEST 1 VIEW (PORTABLE) Stat Exams 01/08/23 20:49 Taken CBC W DIFF Stat Lab 01/08/23 20:20 Completed CMP Stat Lab 01/08/23 20:20 Completed D-DIMER QUANTITATIVE Stat Lab 01/08/23 20:20 Completed TROPONIN Q4H Lab 01/08/23 20:20 Completed TROPONIN Q4H Lab 01/09/23 01:00 Ordered TROPONIN Q4H Lab 01/09/23 05:00 Ordered TROPONIN Stat Lab 01/08/23 23:08 Completed Respiratory Therapy Assessment DAILY RT 01/08/23 21:06 Active Medication Summary Discontinued Medications Generic Name Dose Route Start Last Admin Trade Name Freq PRN Reason Stop Dose Admin Albuterol Sulfate 2.5 mg 01/08/23 20:50 01/08/23 21:03 Albuterol Sulfate 2.5 Mg/3 Ml Neb 01/08/23 20:51 2.5 mg STAT ONE Administration Albuterol Sulfate Confirm 01/08/23 21:02 Albuterol Sulfate 2.5 Mg/3 Ml Neb Administered 01/08/23 21:03 Dose 2.5 mg IH .STK-MED ONE Methylprednisolone Sodium 0 mg 01/08/23 20:50 01/08/23 20:53 Succinate 125 mg/ Sterile IV 01/08/23 20:51 125 mg Water 2 ml STAT ONE Administration Methylprednisolone Sodium Succinate Confirm 01/08/23 20:52 Methylprednis Sod Succ 125 Mg/2 Ml Vial Administered 01/08/23 20:53 Dose 125 mg .ROUTE .STK-MED ONE Sterile Water Confirm 01/08/23 20:52 Water For Injection,Sterile 10 Ml Vial Administered 01/08/23 20:53 Dose 10 ml IJ .STK-MED ONE Lab/Rad Data: Laboratory Result Diagrams 01/08/23 20:20 01/08/23 20:20 Laboratory Results 01/08/23 01/08/23 01/08/23 Range/Units 23:08 23:05 20:20 WBC (4.0-10.5) x10^3/uL RBC (4.1-5.4) x10^6/uL Hgb (12.0-16.0) g/dL Hct (35-47) % MCV (78-100) fL MCH (26-32) pg MCHC (32-36) g/dL RDW (11.5-14.0) % Plt Count (150-450) x10^3/uL MPV (7.5-11.0) fL Gran % (36.0-66.0) % Immature Gran % (Auto) (0.00-0.4) % Nucleat RBC Rel Count (0.00-0.1) % Eos # (Auto) (0-0.5) x10^3/uL Immature Gran # (Auto) (0.00-0.03) x10^3u/L Absolute Lymphs (auto) (1.0-4.6) x10^3/uL Absolute Monos (auto) (0.0-1.3) x10^3/uL Absolute Nucleated RBC (0.00-0.01) x10^3u/L Lymphocytes % (24.0-44.0) % Monocytes % (0.0-12.0) % Eosinophils % (0.00-5.0) % Basophils % (0.0-0.4) % Absolute Granulocytes (1.4-6.9) x10^3/uL Basophils # (0-0.4) x10^3/uL D-Dimer (0.0-0.50) mg/L Sodium (137-145) mmol/L Potassium (3.5-5.1) mmol/L Chloride (98-107) mmol/L Carbon Dioxide (22-30) mmol/L Anion Gap (5-15) MEQ/L BUN (7-17) mg/dL Creatinine (0.52-1.04) mg/dL Estimated GFR ML/MIN Glucose (74-106) mg/dL Calcium (8.4-10.2) mg/dL Total Bilirubin (0.2-1.3) mg/dL AST (14-36) U/L ALT (0-35) U/L Alkaline Phosphatase (38-126) U/L Troponin I < 0.012 < 0.012 (0.000-0.034) ng/mL Serum Total Protein (6.3-8.2) g/dL Albumin (3.5-5.0) g/dL Influenza Type A Ag NEGATIVE (NEGATIVE) Influenza Type B Ag NEGATIVE (NEGATIVE) RSV (PCR) NEGATIVE (Negative) SARS-CoV-2 (PCR) NEGATIVE (NEGATIVE) 01/08/23 01/08/23 01/08/23 Range/Units 20:20 20:20 20:20 WBC 9.5 (4.0-10.5) x10^3/uL RBC 4.89 (4.1-5.4) x10^6/uL Hgb 12.3 (12.0-16.0) g/dL Hct 40.9 (35-47) % MCV 83.6 (78-100) fL MCH 25.2 L (26-32) pg MCHC 30.1 L (32-36) g/dL RDW 13.2 (11.5-14.0) % Plt Count 217 (150-450) x10^3/uL MPV 12.4 H (7.5-11.0) fL Gran % 60.2 (36.0-66.0) % Immature Gran % (Auto) 0.4 (0.00-0.4) % Nucleat RBC Rel Count 0.0 (0.00-0.1) % Eos # (Auto) 0.10 (0-0.5) x10^3/uL Immature Gran # (Auto) 0.04 H (0.00-0.03) x10^3u/L Absolute Lymphs (auto) 3.03 (1.0-4.6) x10^3/uL Absolute Monos (auto) 0.57 (0.0-1.3) x10^3/uL Absolute Nucleated RBC 0.00 (0.00-0.01) x10^3u/L Lymphocytes % 32.0 (24.0-44.0) % Monocytes % 6.0 (0.0-12.0) % Eosinophils % 1.1 (0.00-5.0) % Basophils % 0.3 (0.0-0.4) % Absolute Granulocytes 5.69 (1.4-6.9) x10^3/uL Basophils # 0.03 (0-0.4) x10^3/uL D-Dimer 0.34 (0.0-0.50) mg/L Sodium 139 (137-145) mmol/L Potassium 3.8 (3.5-5.1) mmol/L Chloride 102 (98-107) mmol/L Carbon Dioxide 32 H (22-30) mmol/L Anion Gap 9.2 (5-15) MEQ/L BUN 12 (7-17) mg/dL Creatinine 0.61 (0.52-1.04) mg/dL Estimated GFR > 60.0 ML/MIN Glucose 138 H (74-106) mg/dL Calcium 8.4 (8.4-10.2) mg/dL Total Bilirubin 0.30 (0.2-1.3) mg/dL AST 24 (14-36) U/L ALT 25 (0-35) U/L Alkaline Phosphatase 81 (38-126) U/L Troponin I (0.000-0.034) ng/mL Serum Total Protein 7.2 (6.3-8.2) g/dL Albumin 4.1 (3.5-5.0) g/dL Influenza Type A Ag (NEGATIVE) Influenza Type B Ag (NEGATIVE) RSV (PCR) (Negative) SARS-CoV-2 (PCR) (NEGATIVE) - Progress Progress: improved Progress Note: Patient is a 52-year-old female presents to our ED with shortness of breath. Patient also has left-sided rib pain. Wheezing on physical examination. Work- up entails EKG which was normal sinus rhythm. Chest x-ray showed no acute pathology. CBC CMP essentially nonremarkable. COVID test negative. D-dimer negative. Troponin negative x2. Patient received albuterol nebulizer and Solu- Medrol dose in our ED. Patient states he feels much better and is requesting discharge. Patient ambulated in our ED. Patient's oxygen saturation was at 92%. The patient states this is her baseline. Patient was not demonstrating labored breathing. Patient felt well. Patient requesting discharge. Patient agrees to follow-up with her primary care doctor tomorrow morning as planned. Patient's presenting symptom was acute. Symptoms had been going on for approximately 2 days. Patient has a history of diabetes. Patient states her sugars have been well controlled. Complexity of problem addressed was moderate. Acute with systemic manifestations of shortness of breath left rib pain. No critical care time. Complexity of data reviewed and analyzed was moderate. Test ordered. Test reviewed. Patient served as an independent historian. Chest x-ray independently reviewed by Dr. Waddell. EKG independently reviewed by Dr. Waddell. Test results not discussed with an outside provider. Risk of complications and or risk morbidity/mortality of patient management is high. Patient received a nebulizer treatment with a Solu-Medrol dose. Wheezing significantly improved. Patient symptomatically felt better. Patient requesting discharge. Plan of care established via shared decision making model. Time spent for discharge is approximately 10 minutes. Discharge diagnoses shortness of breath wheezing. Vital stable. Patient will follow-up with her primary care doctor tomorrow as planned. Portions of this note were created with voice recognition technology. There may be grammatical, spelling, punctuation or sound alike errors 01/09/23 00:08 Patient declined prescriptions. Patient states she has prednisone and albuterol at home. 01/09/23 00:14 Counseled pt/family regarding: lab results, diagnosis, rad results - Departure Departure Disposition: Home Clinical Impression: Asthma, Cough, Intercostal muscle pain Condition: Stable Critical Care Time: No Referrals: JAI AGUERO, HEAD [employer]LLH[employer] CAPTAIN [Primary Care Provider] - Follow up/PCP as directed Additional Instructions: Discharge/Care Plan ROBERTA INGRAM was seen on 01/08/23 in the Emergency Room. The patient was counseled regarding Diagnosis,Lab results, Imaging studies, need for follow up and when to return to the Emergency Room. Prescriptions given: Discharge Note I have spoken with the patient and/or caregivers. I have explained the patient's condition, diagnosis and treatment plan based on the information available to me at this time. I have answered the patient's and/or caregiver's questions and addressed any concerns. The patient and/or caregivers have as good understanding of the patient's diagnosis, condition and treatment plan as can be expected at this point. The vital signs have been stable. The patient's condition is stable and appropriate for discharge from the emergency department. The patient will pursue further outpatient evaluation with the primary care physician or other designated or consulting physician as outlined in the dischar ge instructions. The patient and/or caregivers are agreeable to this plan of care and follow-up instructions have been explained in detail. The patient and/or caregivers have received these instruction. The patient/and or caregivers are aware that any significant change in condition or worsening of symptoms should prompt an immediate return to this or the closest emergency department or call 911.
[2023-01-08 23:44] LABS: INFLUENZA A NEGATIVE (NEGATIVE); INFLUENZA B NEGATIVE (NEGATIVE); RESPIRATORY SYNCTIAL VIRUS NEGATIVE (Negative); SARS-CoV-2 Xpert Express NEGATIVE (NEGATIVE)
[2023-01-08 23:59] VITALS: BP 185/88; PULSE 94
--- NOTE | 2023-01-09 08:43 | XRAY ---
Indication: Short of breath. Comparison: March 17, 2020 Portable chest demonstrates new blunting left costophrenic angle favoring tiny pleural effusion/thickening. Remaining heart and lungs unremarkable again with incidental right base calcified granuloma. Bony thorax intact.
== END 2023-01-08 23:59 | disposition home or self-care (01) ==
LOC: ED 20:00
DX: J45.909 Unspecified asthma, uncomplicated (principal); R05.1 Acute cough; R07.81 Pleurodynia; R06.02 Shortness of breath; E78.5 Hyperlipidemia, unspecified; I10 Essential (primary) hypertension; E10.9 Type 1 diabetes mellitus without complications; Z79.52 Long term (current) use of systemic steroids; Z79.4 Long term (current) use of insulin; Z79.899 Other long term (current) drug therapy; Z28.310 Unvaccinated for COVID-19; Z72.0 Tobacco use
CPT/HCPCS: 0241U; 36000; 36415; 71045; 80053; 84484; 85025; 85379; 93005; 93041; 94640; 94760; 96374; 99284; J2930; J7609; A9270-GY

== ENCOUNTER 2023-04-21 19:23 | Emergency (ER) | payer MEDICARE ==
[2023-04-21] MEDS ORDERED: solu-MEDROL 125 MG, Sterile H2O 10 ml 2 ML IV ONE ×2 (19:46)
[2023-04-21] MEDS ORDERED: PROVENTIL 2.5 MG/3 ML NEB IH ONE ×2 (19:46→19:51)
[2023-04-21] MEDS ORDERED: Sterile H2O 10 ml IJ ONE (19:57)
[2023-04-21] MEDS ORDERED: solu-MEDROL ONE (19:57)
[2023-04-21] MEDS ORDERED: BABY ASPIRIN 81 MG CHEW ONE (19:57)
[2023-04-21] MEDS: BABY ASPIRIN 81 MG CHEW PO ONE ×2 (20:00→20:04)
--- NOTE | 2023-04-21 20:00 | ERPHSYRPT ---
- History of Present Illness Time Seen by Provider: 04/21/23 19:26 Source: patient Exam Limitations: no limitations Patient Subjective Stated Complaint: pt states I have not been feeling well since last night. I am having pain that is making my left arm numb. Triage Nursing Assessment: pt ambulated into the er; pt is axo x4; c/o chest pain; pt denies pain; c/o of pressure to chest; c/o left arm numbness; clear apical heart tone; course lung sounds in all lobes; SOB present; strong vanessa pedal pulse; vanessa radial pulses present; slight edema present to BLE; hypertension; skin PDW Physician History: Patient here with shortness of breath and chest discomfort. They state that it started approximately 2 to 3 PM yesterday. Intermittent. No falls or trauma. States that she had some numbness running down her left arm. Now back to normal. No other strokelike symptoms. No fever no chills. No significant cardiac history. EKG was handed to me before walking into the room. Shows sinus rhythm without ischemic changes. Timing/Duration: yesterday Severity: moderate Modifying Factors: Improves With: medication Allergies/Adverse Reactions: carisoprodol [From Soma] Allergy (Intermediate, Verified 04/21/23 19:28) aspirin Allergy (Verified 04/21/23 20:03) buprenorphine Allergy (Verified 04/21/23 19:28) codeine [Codeine] Allergy (Verified 04/21/23 19:28) cyclobenzaprine HCl [From Flexeril] Allergy (Verified 04/21/23 19:28) duloxetine [From Cymbalta] Allergy (Verified 04/21/23 19:28) morphine Allergy (Verified 04/21/23 19:28) Penicillins Allergy (Verified 04/21/23 19:28) Sulfa (Sulfonamide Antibiotics) [Sulfa(Sulfonamide Antibiotics)] Allergy (Verified 04/21/23 19:28) glipizide Adverse Reaction (Verified 04/21/23 19:28) metformin Adverse Reaction (Verified 04/21/23 19:28) Home Medications: Albuterol 2.5 mg/3 ml Neb [Proventil 2.5 mg/3 ml Neb] 2.5 mg IH DAILY PRN PRN 05/16/14 [History] Lorazepam 1 mg [Ativan 1 MG] 1 mg PO DAILY 05/16/14 [History] Montelukast Sodium 10 mg [Singulair 10 MG] 10 mg PO DAILY 05/16/14 [History] Albuterol 8 gm Mdi Hfa [Ventolin Hfa MDI] 2 puff IH QID 11/21/16 [History] Hydrocodone/APAP 10/325 mg [[place] 10/325 MG TableT] 1 tab PO Q6H PRN PRN 11/21/16 [History] [place]-3 Fatty Acids/Fish Oil [Fish Oil 1,000 mg Capsule] 1,000 mg PO QID 07/25/18 [History] Vitamin E 200 unit PO TID 07/25/18 [History] Insulin Aspart [Novolog] 1 units SQ TIDWMEALS 01/30/21 [History] Ezetimibe 10 mg [Zetia 10 MG] 10 mg PO DAILY 04/21/23 [History] Fluticasone/Vilanterol [Breo Ellipta 200-25 Mcg INH] 1 puff IH DAILY 04/21/23 [History] Semaglutide [Ozempic] 0.25 mg SQ WEEKLY 04/21/23 [History] Hx Tetanus, Diphtheria Vaccination/Date Given: Yes Hx Influenza Vaccination/Date Given: No Hx Pneumococcal Vaccination/Date Given: No Travel Risk - International Travel Have you traveled outside of the country in past 3 weeks: No - Coronavirus Screening Are you exhibiting any of the following symptoms?: Yes Symptoms: Shortness of Breath Close contact with a COVID-19 positive Pt in past 14-21 Days: No - Vaccine Status Have you recieved a Covid-19 vaccination: No - Review of Systems Constitutional: No Fever, No Chills Eyes: No Symptoms Ears, Nose, & Throat: No Symptoms Respiratory: Dyspnea, No Cough Cardiac: Chest Pain, No Edema, No Syncope Abdominal/Gastrointestinal: No Abdominal Pain, No Nausea, No Vomiting, No Diarrhea Genitourinary Symptoms: No Dysuria Musculoskeletal: No Back Pain, No Neck Pain Skin: No Rash Neurological: No Dizziness, No Focal Weakness, No Sensory Changes Psychological: No Symptoms Endocrine: No Symptoms All Other Systems: Reviewed and Negative - Past Medical History Pertinent Past Medical History: Yes Neurological History: Migraines ENT History: Glaucoma Cardiac History: High Cholesterol, Myocardial Infarction ([place]) Respiratory History: Asthma, Bronchitis, Pneumonia Endocrine Medical History: Diabetes Type I, Liver Disease Musculoskeletal History: Other GI Medical History: Gallbladder Disease, Other History: Other Psycho-Social History: Anxiety, Other Female Reproductive Disorders: No Pertinent History Other Medical History: L SPINE FUSION 2010; R LE SURGERY AFTER WORK INJURY PERALYSIS OF THE BOWEL, STRESS INCONTINENT. RIGHT RIB FRACTURES. ANEMIA. 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 rt leg cadav. lumbar cadav bones. KIDNEY STONES REMOVED. L SPINE FUSION 2010; R LE SURGERY AFTER WORK INJURY - Social History Smoking Status: Current every day smoker How long have you smoked: 22 yrs Exposure to second hand smoke: Yes Drug Use: marijuana Patient Lives Alone: Yes Significant Family History: no pertinent family hx - Nursing Vital Signs Nursing Vital Signs: Initial Vital Signs Temperature 97.7 F 04/21/23 19:25 Pulse Rate 79 04/21/23 19:25 Respiratory Rate 24 04/21/23 19:25 Blood Pressure 201/86 04/21/23 19:25 O2 Sat by Pulse Oximetry 95 04/21/23 19:25 Pain Scale Pain Intensity 0 - Physical Exam General Appearance: no apparent distress, alert Eye Exam: PERRL/EOMI, eyes nml inspection Ears, Nose, Throat Exam: normal ENT inspection, TMs normal, pharynx normal, moist mucous membranes Neck Exam: normal inspection, non-tender, supple, full range of motion Respiratory Exam: wheezing, No normal breath sounds, No lungs clear, No respiratory distress Cardiovascular Exam: regular rate/rhythm, normal heart sounds, normal peripheral pulses Gastrointestinal/Abdomen Exam: soft, normal bowel sounds, No tenderness, No mass Back Exam: normal inspection, normal range of motion, No CVA tenderness, No vertebral tenderness Extremity Exam: normal inspection, normal range of motion, pelvis stable Neurologic Exam: alert, oriented x 3, cooperative, normal mood/affect, nml cerebellar function, nml station & gait, sensation nml, No motor deficits Skin Exam: normal color, warm, dry, No rash Lymphatic Exam: No adenopathy SpO2: 95 - Course Nursing assessment & vital signs reviewed: Yes EKG Interpreted by Me: Sinus Rhythm Ordered Tests: Active Orders 24 hr Category Date Time Status EKG-ER Only STAT Care 04/21/23 19:46 Active IV Insertion STAT Care 04/21/23 19:46 Active CHEST 1 VIEW (PORTABLE) Stat Exams 04/21/23 19:47 Taken CBC W DIFF Stat Lab 04/21/23 19:55 Completed CMP Stat Lab 04/21/23 19:55 Completed D-DIMER QUANTITATIVE Stat Lab 04/21/23 19:55 Completed Hepatic Function Panel Stat Lab 04/21/23 19:55 Completed NT PRO BNPII Stat Lab 04/21/23 19:55 Completed TROPONIN Q4H Lab 04/21/23 19:55 Completed TROPONIN Q4H Lab 04/22/23 00:00 Ordered TROPONIN Q4H Lab 04/22/23 04:00 Ordered Respiratory Therapy Assessment DAILY RT 04/21/23 19:53 Active Medication Summary Discontinued Medications Generic Name Dose Route Start Last Admin Trade Name Freq PRN Reason Stop Dose Admin Albuterol Sulfate 2.5 mg 04/21/23 19:46 04/21/23 19:59 Albuterol Sulfate 2.5 Mg/3 Ml Neb IH 04/21/23 19:47 2.5 mg STAT ONE Administration Albuterol Sulfate Confirm 04/21/23 19:51 Albuterol Sulfate 2.5 Mg/3 Ml Neb Administered 04/21/23 19:52 Dose 2.5 mg IH .STK-MED ONE Aspirin 324 mg 04/21/23 19:48 04/21/23 20:04 Aspirin 81 Mg Tab.Chew PO 04/21/23 19:49 Not Given STAT ONE Aspirin Confirm 04/21/23 19:57 Aspirin 81 Mg Tab.Chew Administered 04/21/23 19:58 Dose 324 mg .ROUTE .STK-MED ONE Methylprednisolone Sodium 0 mg 04/21/23 19:46 04/21/23 19:59 Succinate 125 mg/ Sterile IV 04/21/23 19:47 125 mg Water 2 ml STAT ONE Administration Methylprednisolone Sodium Succinate Confirm 04/21/23 19:57 Methylprednis Sod Succ 125 Mg/2 Ml Vial Administered 04/21/23 19:58 Dose 125 mg .ROUTE .STK-MED ONE Sterile Water Confirm 04/21/23 19:57 Water For Injection,Sterile 10 Ml Vial Administered 04/21/23 19:58 Dose 10 ml IJ .[place]-MED ONE Lab/Rad Data: Laboratory Result Diagrams 04/21/23 19:55 04/21/23 19:55 Laboratory Results 04/21/23 04/21/23 04/21/23 Range/Units 20:00 19:55 19:55 WBC (4.0-10.5) x10^3/uL RBC (4.1-5.4) x10^6/uL Hgb (12.0-16.0) g/dL Hct (35-47) % MCV (78-100) fL MCH (26-32) pg MCHC (32-36) g/dL RDW (11.5-14.0) % Plt Count (150-450) x10^3/uL MPV (7.5-11.0) fL Gran % (36.0-66.0) % Immature Gran % (Auto) (0.00-0.4) % Nucleat RBC Rel Count (0.00-0.1) % Eos # (Auto) (0-0.5) x10^3/uL Immature Gran # (Auto) (0.00-0.03) x10^3u/L Absolute Lymphs (auto) (1.0-4.6) x10^3/uL Absolute Monos (auto) (0.0-1.3) x10^3/uL Absolute Nucleated RBC (0.00-0.01) x10^3u/L Lymphocytes % (24.0-44.0) % Monocytes % (0.0-12.0) % Eosinophils % (0.00-5.0) % Basophils % (0.0-0.4) % Absolute Granulocytes (1.4-6.9) x10^3/uL Basophils # (0-0.4) x10^3/uL D-Dimer 0.47 (0.0-0.50) mg/L Sodium (137-145) mmol/L Potassium (3.5-5.1) mmol/L Chloride (98-107) mmol/L Carbon Dioxide (22-30) mmol/L Anion Gap (5-15) MEQ/L BUN (7-17) mg/dL Creatinine (0.52-1.04) mg/dL Estimated GFR ML/MIN Glucose (74-106) mg/dL Calcium (8.4-10.2) mg/dL Total Bilirubin (0.2-1.3) mg/dL Direct Bilirubin (0.0-0.4) mg/dL AST (14-36) U/L ALT (0-35) U/L Alkaline Phosphatase (38-126) U/L Troponin I < 0.012 (0.000-0.034) ng/mL NT-Pro-B Natriuret Pep (<300) pg/mL Serum Total Protein (6.3-8.2) g/dL Albumin (3.5-5.0) g/dL Influenza Type A Ag NEGATIVE (NEGATIVE) Influenza Type B Ag NEGATIVE (NEGATIVE) RSV (PCR) NEGATIVE (NEGATIVE) SARS-CoV-2 (PCR) NEGATIVE (NEGATIVE) 04/21/23 04/21/23 Range/Units 19:55 19:55 WBC 8.2 (4.0-10.5) x10^3/uL RBC 4.62 (4.1-5.4) x10^6/uL Hgb 11.8 L (12.0-16.0) g/dL Hct 38.8 (35-47) % MCV 84.0 (78-100) fL MCH 25.5 L (26-32) pg MCHC 30.4 L (32-36) g/dL RDW 13.3 (11.5-14.0) % Plt Count 188 (150-450) x10^3/uL MPV 12.8 H (7.5-11.0) fL Gran % 65.2 (36.0-66.0) % Immature Gran % (Auto) 0.4 (0.00-0.4) % Nucleat RBC Rel Count 0.0 (0.00-0.1) % Eos # (Auto) 0.14 (0-0.5) x10^3/uL Immature Gran # (Auto) 0.03 (0.00-0.03) x10^3u/L Absolute Lymphs (auto) 2.22 (1.0-4.6) x10^3/uL Absolute Monos (auto) 0.44 (0.0-1.3) x10^3/uL Absolute Nucleated RBC 0.00 (0.00-0.01) x10^3u/L Lymphocytes % 27.1 (24.0-44.0) % Monocytes % 5.4 (0.0-12.0) % Eosinophils % 1.7 (0.00-5.0) % Basophils % 0.2 (0.0-0.4) % Absolute Granulocytes 5.34 (1.4-6.9) x10^3/uL Basophils # 0.02 (0-0.4) x10^3/uL D-Dimer (0.0-0.50) mg/L Sodium 139 (137-145) mmol/L Potassium 3.8 (3.5-5.1) mmol/L Chloride 101 (98-107) mmol/L Carbon Dioxide 30 (22-30) mmol/L Anion Gap 11.4 (5-15) MEQ/L BUN 9 (7-17) mg/dL Creatinine 0.59 (0.52-1.04) mg/dL Estimated GFR > 60.0 ML/MIN Glucose 194 H (74-106) mg/dL Calcium 8.8 (8.4-10.2) mg/dL Total Bilirubin 0.60 (0.2-1.3) mg/dL Direct Bilirubin 0.3 (0.0-0.4) mg/dL AST 25 (14-36) U/L ALT 23 (0-35) U/L Alkaline Phosphatase 69 (38-126) U/L Troponin I (0.000-0.034) ng/mL NT-Pro-B Natriuret Pep 306 (<300) pg/mL Serum Total Protein 7.1 (6.3-8.2) g/dL Albumin 3.9 (3.5-5.0) g/dL Influenza Type A Ag (NEGATIVE) Influenza Type B Ag (NEGATIVE) RSV (PCR) (NEGATIVE) SARS-CoV-2 (PCR) (NEGATIVE) - Progress Progress: improved Progress Note: 04/21/23 20:01 differential diagnosis includes: PNA, STEMI, NSTEMI, other infection, musculoskeletal pain, pneumothorax - We'll obtain basic labs, fluids, EKG, troponin, chest x-ray - I feel comfortable with one time negative troponin given symptoms have improved and started greater then 6 hours ago. - EKG shows no ST changes - my read. See full read below. - O2 saturations consistently greater than 95%. - CXR shows no pneumonia, pneumothorax - my read 04/21/23 21:22 Work-up mostly unremarkable. Troponin not elevated as above. D-dimer negative. Therefore will not obtain a CT looking for pulmonary embolism. Less likely to be a DVT. Patient's liver enzymes are normal, CHF peptide is 306. Normal is less than 300 on our scale. Chest x-ray does show some increased interstitial markings in the bases. Also peribronchial cuffing. May be consistent with a viral bronchitis causing an asthma exacerbation, COPD exacerbation. Patient states that she continues to smoke 4 cigarettes a day. Given that she is diabetic will not do any more steroids outside of what we gave today. States that she does have some home steroids. We will give a Z-Bryce to go home with. No other obvious sinister pathology tonight. 04/21/23 21:24 Does look improved on reexam with breathing treatment and IV steroids. Plan for continued of this report of management at home. She may return here sooner for new or changing symptoms. Counseled pt/family regarding: lab results, diagnosis, need for follow-up, rad results Medical Desision Making - External Record(s) Reviewed Records reviewed as a part of evaluation & management: Discharge Summary - Diagnostic Testing Diagnostic test were ordered, analyzed, and reviewed by me: Yes Radiological Interpretation: Interpreted by me, Reviewed by me - Departure Departure Disposition: Home Clinical Impression: COPD exacerbation, Shortness of breath Condition: Stable Critical Care Time: No Referrals: JAI AGUERO NP [Primary Care Provider] - Follow up/PCP as directed Instructions: Chronic Obstructive Pulmonary Disease, Chronic obstructive pulmonary disease (COPD) Prescriptions: Azithromycin 250 mg [Zithromax 250 MG TABLET] 250 mg PO ZPACK #6 tablet
[2023-04-21 20:17] LABS: Absolute Neutrophil Ct (ANC) 5.34 x10^3/uL (1.4-6.9); BASOPHIL % 0.2 % (0.0-0.4); Basophil (Absolute #) 0.02 x10^3/uL (0-0.4); Eosinophil % 1.7 % (0.00-5.0); Eosinophil (Absolute #) 0.14 x10^3/uL (0-0.5); Hematocrit 38.8 % (35-47); Hemoglobin 11.8 g/dL (12.0-16.0); IMMATURE GRAN # 0.03 x10^3u/L (0.00-0.03); IMMATURE GRAN % 0.4 % (0.00-0.4); Lymphocyte (Absolute #) 2.22 x10^3/uL (1.0-4.6); Lymphocytes % 27.1 % (24.0-44.0); Mean Corpuscular Hemoglobin 25.5 pg (26-32); Mean Corpuscular Hgb Concent. 30.4 g/dL (32-36); Mean Platelet Volume 12.8 fL (7.5-11.0); Monocyte (Absolute #) 0.44 x10^3/uL (0.0-1.3); Monocytes % 5.4 % (0.0-12.0); Neutrophil % 65.2 % (36.0-66.0); Platelet Count 188 x10^3/uL (150-450); Red Blood Count 4.62 x10^6/uL (4.1-5.4); Red Cell Distribution Width 13.3 % (11.5-14.0); White Blood Count 8.2 x10^3/uL (4.0-10.5)
[2023-04-21 20:45] LABS: INFLUENZA A NEGATIVE (NEGATIVE); INFLUENZA B NEGATIVE (NEGATIVE); RESPIRATORY SYNCTIAL VIRUS NEGATIVE (NEGATIVE); SARS-CoV-2 Xpert Express NEGATIVE (NEGATIVE)
[2023-04-21 21:02] LABS: ALBUMIN 3.9 g/dL (3.5-5.0); ALKALINE PHOSPHATASE 69 U/L (38-126); ANION GAP 11.4 MEQ/L (5-15); BLOOD UREA NITROGEN 9 mg/dL (7-17); CHLORIDE 101 mmol/L (98-107); Calcium 8.8 mg/dL (8.4-10.2); Carbon Dioxide 30 mmol/L (22-30); Creatinine 1 0.59 mg/dL (0.52-1.04); Direct Bilirubin 0.3 mg/dL (0.0-0.4); EST GLOMERULAR FILTRATION RATE > 60.0 ML/MIN; Glucose 194 mg/dL (74-106); NT PRO BNPII 306 pg/mL (<300); Potassium 3.8 mmol/L (3.5-5.1); SGOT/AST 25 U/L (14-36); SGPT/ALT 23 U/L (0-35); SODIUM 139 mmol/L (137-145); Total Protein 7.1 g/dL (6.3-8.2)
[2023-04-21 21:20] VITALS: BP 178/78; PULSE 78
[2023-04-21 21:24] VITALS: O2SAT 95
--- NOTE | 2023-04-22 08:48 | XRAY ---
Indication: Short of breath. Comparison: January 08, 2023 Portable chest demonstrates stable tiny left costophrenic angle pleural effusion/thickening and small right lung base calcified granuloma. Remaining heart and lungs unremarkable. Bony thorax intact. No new abnormalities.
== END 2023-04-21 21:38 | disposition home or self-care (01) ==
LOC: ED 19:23
DX: J44.1 Chronic obstructive pulmonary disease with (acute) exacerbation (principal); R06.02 Shortness of breath; R07.9 Chest pain, unspecified; E78.5 Hyperlipidemia, unspecified; E10.9 Type 1 diabetes mellitus without complications; Z79.4 Long term (current) use of insulin; Z79.85 Long-term (current) use of injectable non-insulin antidiabetic drugs; Z79.899 Other long term (current) drug therapy; Z28.310 Unvaccinated for COVID-19; Z72.0 Tobacco use; Z20.828 Contact with and (suspected) exposure to other viral communicable diseases
CPT/HCPCS: 0241U; 36000; 36415; 71045; 80053; 80076; 83880; 84484; 85025; 85379; 93005; 94640; 96374; 99284; J2930; J7609; A9270-GY

== ENCOUNTER 2023-08-31 13:59 | Observation (INO) | payer MEDICARE ==
[2023-08-31] MEDS ORDERED: DUONEB 0.5-3 MG/3 ml Neb IH ONE ×4 (14:09→18:26)
[2023-08-31] MEDS ORDERED: solu-MEDROL 125 MG, Sterile H2O 10 ml 2 ML IV ONE ×2 (14:09)
--- NOTE | 2023-08-31 14:09 | ERPHSYRPT ---
<CLARIBEL REMY - Last Filed: 08/31/23 19:56> - History of Present Illness Source: patient Exam Limitations: clinical condition Timing/Duration: week(s) (1), worse Activities at Onset: rest Severity of Dyspnea-Max: severe Severity of Dyspnea-Current: severe Possible Cause: occasional episodes Modifying Factors: Improves With: nothing. Worsens With: activity, exertion Associated Symptoms: constant, cough, edema, wheezing, weakness, ankle swelling, leg swelling, productive cough, No chest pain/discomfort, No fever, No l ightheadedness, No hemoptysis, No calf pain, No heart racing Hx Tetanus, Diphtheria Vaccination/Date Given: Yes Hx Influenza Vaccination/Date Given: No Hx Pneumococcal Vaccination/Date Given: No <RUTH CHOU - Last Filed: 09/02/23 20:55> - History of Present Illness Time Seen by Provider: 08/31/23 14:09 Physician History: The patient began experiencing difficulty breathing approximately two weeks ago, initially attributing it to a urinary tract infection (UTI). They were prescribed Macrobid for the UTI, and while their urinary symptoms improved, their breathing difficulties persisted. The patient's oxygen saturation levels were reported to be between 88-91% when active and 94% at rest. The patient has a history of asthma and smoking, and has been using a Ventolin inhaler and albuterol nebulizer treatments to manage their symptoms. They also take Breo inhaler for their asthma. In addition to their breathing difficulties, the patient has been experiencing unusual swelling in their left leg, which has been concerning them. The swelling has been more pronounced when the patient has been active, but they have been mostly bedridden due to their breathing difficulties. The patient's left leg has a history of injuries and contains cadaver bones, making it typically larger than their right leg. However, the recent swelling has been abnormal for the patient. They have no known history of blood clots or use of blood thinners, and they are not currently on control pills. The patient also has a history of sarcoidosis. The patient has not smoked in the past 24 hours and has no recent history of COVID-19. They suspect that their current symptoms may be due to bronchitis or walking pneumonia, which they have experienced in the past. (RUTH CHOU) Allergies/Adverse Reactions: carisoprodol [From Soma] Allergy (Intermediate, Verified 08/31/23 14:24) aspirin Allergy (Verified 08/31/23 14:24) buprenorphine Allergy (Verified 08/31/23 14:24) codeine [Codeine] Allergy (Verified 08/31/23 14:24) cyclobenzaprine HCl [From Flexeril] Allergy (Verified 08/31/23 14:24) duloxetine [From Cymbalta] Allergy (Verified 08/31/23 14:24) morphine Allergy (Verified 08/31/23 14:24) Penicillins Allergy (Verified 08/31/23 14:24) Sulfa (Sulfonamide Antibiotics) [Sulfa(Sulfonamide Antibiotics)] Allergy (Verified 08/31/23 14:24) glipizide Adverse Reaction (Verified 08/31/23 14:24) metformin Adverse Reaction (Verified 08/31/23 14:24) nicotine [From Nicoderm CQ] Adverse Reaction (Verified 09/01/23 04:45) All ABX except Macrobid & Zithromax Allergy (Uncoded 09/01/23 13:12) Allergic to all muscle relaxers Allergy (Uncoded 09/01/23 13:13) Home Medications: Albuterol 2.5 mg/3 ml Neb [Proventil 2.5 mg/3 ml Neb] 2.5 mg IH DAILY PRN PRN 05/16/14 [History] Lorazepam 1 mg [Ativan 1 MG] 1 mg PO HS 05/16/14 [History] Montelukast Sodium 10 mg [Singulair 10 MG] 10 mg PO DAILY 05/16/14 [History] Albuterol 8 gm Mdi Hfa [Ventolin Hfa MDI] 2 puff IH QID 11/21/16 [History] Seneca-3 Fatty Acids/Fish Oil [Fish Oil 1,000 mg Capsule] 1,000 mg PO QID 07/25/18 [History] Vitamin E 200 unit PO TID 07/25/18 [History] Insulin Aspart [Novolog] See Rx Instructions .ROUTE .COMPLEX 01/30/21 [History] Ezetimibe 10 mg [Zetia 10 MG] 10 mg PO DAILY 04/21/23 [History] Fluticasone/Vilanterol [Breo Ellipta 200-25 Mcg INH] 1 puff IH DAILY 04/21/23 [History] Hydrocodone/Acetaminophen [Hydrocodone-Acetamin 10-325 mg] 1 tab PO QID 08/31/23 [History] Nitrofurantoin Macro 100 mg [Macrobid 100MG Capsule] 1 tab PO BID 08/31/23 [History] Omeprazole 40 mg PO DAILY 08/31/23 [History] Prednisone 20 mg [Deltasone 20 mg] 20 mg PO DAILY 08/31/23 [History] Travel Risk - Vaccine Status Have you recieved a Covid-19 vaccination: No <RUTH CHOU - Last Filed: 09/02/23 20:55> - Review of Systems Constitutional: No Symptoms, No Fever, No Chills Eyes: No Symptoms Ears, Nose, & Throat: No Symptoms Respiratory: No Symptoms, No Cough, No Dyspnea Cardiac: No Symptoms, No Chest Pain, No Edema, No Syncope Abdominal/Gastrointestinal: No Symptoms, No Abdominal Pain, No Nausea, No Vomiting, No Diarrhea Genitourinary Symptoms: No Symptoms, No Dysuria Musculoskeletal: No Symptoms, No Back Pain, No Neck Pain Skin: No Symptoms, No Rash Neurological: No Symptoms, No Dizziness, No Focal Weakness, No Sensory Changes Psychological: No Symptoms Endocrine: No Symptoms Hematologic/Lymphatic: No Symptoms Immunological/Allergic: No Symptoms All Other Systems: Reviewed and Negative <CLARIBEL REMY - Last Filed: 08/31/23 19:56> - Review of Systems All Other Systems: Reviewed and Negative (As per HPI) <RUTH CHOU - Last Filed: 09/02/23 20:55> - Past Medical History Pertinent Past Medical History: Yes Neurological History: Migraines ENT History: Glaucoma Cardiac History: High Cholesterol, Myocardial Infarction ([place]) Respiratory History: Asthma, Bronchitis, Pneumonia Endocrine Medical History: Diabetes Type I, Liver Disease Musculoskeletal History: Other GI Medical History: Gallbladder Disease, Other History: Other Psycho-Social History: Anxiety, Other Female Reproductive Disorders: No Pertinent History Other Medical History: L SPINE FUSION 2010; R LE SURGERY AFTER WORK INJURY PERALYSIS OF THE BOWEL, STRESS INCONTINENT. RIGHT RIB FRACTURES. ANEMIA. 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 rt leg cadav. lumbar cadav bones. KIDNEY STONES REMOVED. L SPINE FUSION 2010; R LE SURGERY AFTER WORK INJURY - Social History Smoking Status: Current every day smoker How long have you smoked: 22 yrs Exposure to second hand smoke: Yes Drug Use: marijuana Patient Lives Alone: Yes Significant Family History: no pertinent family hx <RUTH CHOU - Last Filed: 09/02/23 20:55> - Physical Exam General Appearance: alert Eye Exam: PERRL/EOMI Neck Exam: supple Cardiovascular/Chest Exam: regular rate/rhythm Abdominal/Gastrointestinal Exam: soft, No tenderness, No distention, No mass Extremity Exam: non-tender, normal range of motion, normal inspection, no calf tenderness, no pedal edema Neurologic Exam: alert, oriented x 3, cooperative, stem lead former II-XII nml as tested, sensation nml, No motor deficits Skin Exam: normal color, warm, No dry SpO2: 93 <CLARIBEL REMY - Last Filed: 08/31/23 19:56> - Physical Exam General Appearance: moderate distress, obese Eye Exam: eyes nml inspection Ears, Nose, Throat Exam: hearing grossly normal, sinus pain/drainage, nasal congestion, pharyngeal erythema, No tonsillar exudate, No tonsillar swelling Neck Exam: normal inspection, non-tender, supple, full range of motion Respiratory Exam: respiratory distress, airway intact, wheezing Cardiovascular/Chest Exam: regular rate/rhythm Abdominal/Gastrointestinal Exam: soft, No tenderness Neurologic Exam: alert, oriented x 3, cooperative Skin Exam: normal color, warm, dry, No rash SpO2 Interpretation: borderline oxygenation O2 Delivery: Nasal Cannula <RUTH CHOU - Last Filed: 09/02/23 20:55> - Nursing Vital Signs Nursing Vital Signs: Initial Vital Signs Temperature 97.8 F 08/31/23 14:00 Pulse Rate 75 08/31/23 14:00 Respiratory Rate 28 H 08/31/23 14:00 Blood Pressure 210/96 08/31/23 14:00 O2 Sat by Pulse Oximetry 93 L 08/31/23 14:00 Pain Scale Pain Intensity 0 - Course Nursing assessment & vital signs reviewed: Yes EKG Interpreted by Me: RATE (72), Sinus Rhythm, NORMAL AXIS, NORMAL INTERVALS, NORMAL QRS, NORMAL ST-T - Radiology Exams Chest X-ray Interpretation: Interpreted by me, Infiltrates (patchy ground glass) - Radiology Ultrasound Exam Left Venous Lower Extremity Ultrasound: tele radiology report, negative <RUTH CHOU - Last Filed: 09/02/23 20:55> Ordered Tests: Medication Summary Generic Name Dose Route Start Last Admin Trade Name Freq PRN Reason Stop Dose Admin Acetaminophen 325 mg 08/31/23 20:34 09/02/23 14:22 Acetaminophen 325 Mg Tablet PO 09/30/23 20:33 325 mg Q4H PRN PRN Administration PAIN, FEVER, HEADACHE Hydrocodone Bitart/Acetaminophen 1 tablet 09/01/23 07:00 09/02/23 19:42 Hydrocodone/Acetamin 10-325 Mg Tablet PO 09/06/23 06:59 1 tablet Q6H JAYME Administration Albuterol/Ipratropium 3 ml 08/31/23 23:00 09/02/23 18:41 Ipratropium/Albuterol Sulfate 3 Ml Ampul.Neb IH 09/30/23 22:59 3 ml Q4HRT JAYME Administration Chlorthalidone 12.5 mg 09/02/23 10:00 09/02/23 10:42 Chlorthalidone 25 Mg Tablet PO 10/02/23 09:59 12.5 mg DAILY JAYME Administration Methylprednisolone Sodium 0 mg 09/01/23 14:00 09/02/23 19:48 Succinate 40 mg/ Sterile Water IV 10/01/23 13:59 40 mg 1 ml Q8HT JAYME Administration Docusate Sodium 100 mg 08/31/23 20:34 Docusate Sodium 100 Mg Capsule PO 09/30/23 20:33 BIDPRN PRN CONSTIPATION Ezetimibe 10 mg 09/01/23 10:00 09/02/23 10:42 Ezetimibe 10 Mg Tab PO 10/01/23 09:59 10 mg DAILY JAYME Administration Enoxaparin Sodium 40 mg 09/01/23 10:00 09/02/23 10:41 Enoxaparin Sodium 40 Mg/0.4 Ml Syringe SQ 10/01/23 09:59 40 mg DAILY JAYME Administration Fish Oil 1,000 mg 09/01/23 10:00 09/02/23 19:48 Seneca-3 Fatty Acids/Fish Oil 1000 Mg Capsule PO 10/01/23 09:59 1,000 mg QID JAYME Administration Azithromycin 500 mg in 250 mls @ 250 mls/hr 09/02/23 11:00 09/02/23 11:41 Zithromax 500 Mg/ 250 Ml Nacl Premix IV 10/02/23 10:59 250 mls/hr Q24H10 JAYME Administration Lorazepam 1 mg 08/31/23 22:00 09/02/23 19:55 Lorazepam 1 Mg Tablet PO 09/30/23 21:59 1 mg HS JAYME Administration Magnesium Hydroxide 30 ml 08/31/23 20:34 Magnesium Hydroxide 30 Ml Udcup PO 09/30/23 20:33 HS PRN PRN CONSTIPATION Miscellaneous Information 1 each 09/01/23 07:45 Medication Intervention 1 Each Each 10/01/23 07:44 .RN TO CHECK JAYME Montelukast Sodium 10 mg 09/01/23 10:00 09/02/23 10:42 Montelukast Sodium 10 Mg Tablet PO 10/01/23 09:59 10 mg DAILY JAYME Administration Nitrofurantoin Macrocrystals 100 mg 08/31/23 20:58 09/02/23 18:18 Nitrofurantoin Macro 100 Mg Capsule PO 09/30/23 20:57 100 mg BIDWM JAYME Administration Ondansetron HCl 4 mg 08/31/23 20:59 Ondansetron Hcl 4 Mg/2 Ml Vial IV 09/30/23 20:58 Q4H PRN PRN NAUSEA/VOMITING Pantoprazole Sodium 40 mg 09/01/23 10:00 09/02/23 10:42 Protonix (Pantoprazole) 40 Mg Tablet PO 10/01/23 09:59 40 mg DAILY JAYME Administration Breo Ellipta 100/ 1 each 09/01/23 07:00 09/02/23 07:24 25mcg Inhaler 10/01/23 06:59 1 each 0700 JAYME Administration Discontinued Medications Generic Name Dose Route Start Last Admin Trade Name Freq PRN Reason Stop Dose Admin Hydrocodone Bitart/Acetaminophen tablet 08/31/23 22:00 Hydrocodone/Acetamin 10-325 Mg Tablet PO 11/03/23 21:59 QID JAYME Hydrocodone Bitart/Acetaminophen 0 tablet 08/31/23 22:00 08/31/23 21:38 Hydrocodone/Acetamin 10-325 Mg Tablet PO 09/05/23 21:59 1 tablet QID JAYME Administration Hydrocodone Bitart/Acetaminophen 1 tablet 09/01/23 10:00 Hydrocodone/Acetamin 10-325 Mg Tablet PO 09/05/23 21:59 QID JAYME Albuterol/Ipratropium 3 ml 08/31/23 14:09 08/31/23 14:13 Ipratropium/Albuterol Sulfate 3 Ml Ampul.Neb IH 08/31/23 14:10 3 ml STAT ONE Administration Albuterol/Ipratropium Confirm 08/31/23 14:11 Ipratropium/Albuterol Sulfate 3 Ml Ampul.Neb Administered 08/31/23 14:12 Dose 3 ml IH .STK-MED ONE Albuterol/Ipratropium 3 ml 08/31/23 18:12 08/31/23 18:27 Ipratropium/Albuterol Sulfate 3 Ml Ampul.Neb IH 08/31/23 18:13 3 ml STAT ONE Administration Albuterol/Ipratropium Confirm 08/31/23 18:26 Ipratropium/Albuterol Sulfate 3 Ml Ampul.Neb Administered 08/31/23 18:27 Dose 3 ml IH .STK-MED ONE Methylprednisolone Sodium 0 mg 08/31/23 14:09 08/31/23 14:32 Succinate 125 mg/ Sterile IV 08/31/23 14:10 125 mg Water 2 ml STAT ONE Administration Methylprednisolone Sodium 0 mg 08/31/23 22:00 09/01/23 06:26 Succinate 40 mg/ Sterile Water IV 09/30/23 21:59 40 mg 2 ml Q8HT JAYME Administration Fish Oil Confirm 08/31/23 21:13 Seneca-3 Fatty Acids/Fish Oil 1000 Mg Capsule Administered 08/31/23 21:14 Dose 1,000 mg PO .STK-MED ONE Azithromycin 500 mg in 250 mls @ 250 mls/hr 08/31/23 14:45 08/31/23 15:08 Zithromax 500 Mg/ 250 Ml Nacl Premix IV 08/31/23 15:44 250 mls/hr STAT ONE Administration Azithromycin Confirm 08/31/23 15:05 Zithromax 500 Mg/ 250 Ml Nacl Premix Administered 08/31/23 15:06 Dose 500 mg in 250 mls @ ud IV .STK-MED ONE Magnesium Sulfate/Water 2 gm in 50 mls @ 100 mls/hr 08/31/23 15:26 08/31/23 16:53 Magnesium Sulf 2 G/50 Ml Bag IV 08/31/23 15:55 Infused ONCE ONE Infusion Magnesium Sulfate/Water Confirm 08/31/23 16:24 Magnesium Sulf 2 G/50 Ml Bag Administered 08/31/23 16:25 Dose 2 gm in 50 mls @ ud IV .STK-MED ONE Insulin Human Lispro 0 unit 08/31/23 22:00 Insulin Lispro 1 Unit SQ 09/30/23 21:59 ACHS [facility] Lorazepam 1 mg 09/02/23 11:05 09/02/23 11:41 Lorazepam 1 Mg Tablet PO 09/02/23 11:06 1 mg STAT ONE Administration Methylprednisolone Sodium Succinate Confirm 08/31/23 14:28 Methylprednis Sod Succ 125 Mg/2 Ml Vial Administered 08/31/23 14:29 Dose 125 mg .ROUTE .STK-MED ONE Methylprednisolone Sodium Succinate Confirm 08/31/23 14:31 Methylprednis Sod Succ 125 Mg/2 Ml Vial Administered 08/31/23 14:32 Dose 125 mg .ROUTE .STK-MED ONE Methylprednisolone Sodium Succinate Confirm 08/31/23 21:13 Methylprednisolone Sod Suc 40m 40 Mg/Ml Vial Administered 08/31/23 21:14 Dose 40 mg .ROUTE .STK-MED ONE Methylprednisolone Sodium Succinate Confirm 09/01/23 06:25 Methylprednisolone Sod Suc 40m 40 Mg/Ml Vial Administered 09/01/23 06:26 Dose 40 mg .ROUTE .STK-MED ONE Non-Formulary Medication 1,000 mg 08/31/23 22:00 08/31/23 21:16 Seneca-3 Fatty Acids/Fish Oil [Fish Oil 1,000 Mg Capsule] PO 09/30/23 21:59 1,000 mg QID JAYME Administration Non-Formulary Medication 200 unit 08/31/23 22:00 08/31/23 21:17 Vitamin E [Vitamin E] PO 09/30/23 21:59 Not Given TID [facility] Sterile Water Confirm 08/31/23 14:28 Water For Injection,Sterile 10 Ml Vial Administered 08/31/23 14:29 Dose 10 ml IJ .STK-MED ONE Sterile Water Confirm 08/31/23 14:31 Water For Injection,Sterile 10 Ml Vial Administered 08/31/23 14:32 Dose 10 ml IJ .STK-MED ONE Sterile Water Confirm 08/31/23 21:14 Water For Injection,Sterile 10 Ml Vial Administered 08/31/23 21:15 Dose 10 ml IJ .STK-MED ONE Sterile Water Confirm 09/01/23 06:25 Water For Injection,Sterile 10 Ml Vial Administered 09/01/23 06:26 Dose 10 ml IJ .STK-MED ONE Lab/Rad Data: Laboratory Result Diagrams 08/31/23 14:09 08/31/23 14:40 Laboratory Results 08/31/23 08/31/23 08/31/23 Range/Units 18:13 14:55 14:40 WBC (4.0-10.5) x10^3/uL RBC (4.1-5.4) x10^6/uL Hgb (12.0-16.0) g/dL Hct (35-47) % MCV (78-100) fL MCH (26-32) pg MCHC (32-36) g/dL RDW (11.5-14.0) % Plt Count (150-450) x10^3/uL MPV (7.5-11.0) fL Gran % (36.0-66.0) % Immature Gran % (Auto) (0.00-0.4) % Nucleat RBC Rel Count (0.00-0.1) % Eos # (Auto) (0-0.5) x10^3/uL Immature Gran # (Auto) (0.00-0.03) x10^3u/L Absolute Lymphs (auto) (1.0-4.6) x10^3/uL Absolute Monos (auto) (0.0-1.3) x10^3/uL Absolute Nucleated RBC (0.00-0.01) x10^3u/L Lymphocytes % (24.0-44.0) % Monocytes % (0.0-12.0) % Eosinophils % (0.00-5.0) % Basophils % (0.0-0.4) % Absolute Granulocytes (1.4-6.9) x10^3/uL Basophils # (0-0.4) x10^3/uL PT (9.4-12.5) SECONDS INR (0.8-3.0) APTT (25.1-36.5) SECONDS D-Dimer (0.0-0.50) mg/L pO2/FiO2 Ratio % VBG pH (7.32-7.42) VBG pCO2 at Pat Temp (42-55) mm/Hg VBG pO2 at Pat Temp (25-40) mm/Hg VBG HCO3 (22-28) meq/L VBG O2 Sat ([place]) (95-100) VBG Base Excess (-2.0-2.0) VBG Hemoglobin VBG Carboxyhemoglobin (0.0-6.9) % T HGB POC Potassium (3.5-5.1) Sodium (137-145) mmol/L Potassium (3.5-5.1) mmol/L Chloride (98-107) mmol/L Carbon Dioxide (22-30) mmol/L Anion Gap (5-15) MEQ/L BUN (7-17) mg/dL Creatinine (0.52-1.04) mg/dL Estimated GFR ML/MIN Glucose (74-106) mg/dL Lactic Acid (0.4-2.0) Calcium (8.4-10.2) mg/dL Magnesium (1.6-2.3) mg/dL Total Bilirubin (0.2-1.3) mg/dL AST (14-36) U/L ALT (0-35) U/L Alkaline Phosphatase (38-126) U/L Troponin I < 0.012 < 0.012 (0.000-0.034) ng/mL NT-Pro-B Natriuret Pep (<300) pg/mL Serum Total Protein (6.3-8.2) g/dL Albumin (3.5-5.0) g/dL Influenza Type A Ag NEGATIVE (NEGATIVE) Influenza Type B Ag NEGATIVE (NEGATIVE) RSV (PCR) NEGATIVE (NEGATIVE) SARS-CoV-2 (PCR) NEGATIVE (NEGATIVE) 08/31/23 08/31/23 08/31/23 Range/Units 14:40 14:40 14:28 WBC (4.0-10.5) x10^3/uL RBC (4.1-5.4) x10^6/uL Hgb (12.0-16.0) g/dL Hct (35-47) % MCV (78-100) fL MCH (26-32) pg MCHC (32-36) g/dL RDW (11.5-14.0) % Plt Count (150-450) x10^3/uL MPV (7.5-11.0) fL Gran % (36.0-66.0) % Immature Gran % (Auto) (0.00-0.4) % Nucleat RBC Rel Count (0.00-0.1) % Eos # (Auto) (0-0.5) x10^3/uL Immature Gran # (Auto) (0.00-0.03) x10^3u/L Absolute Lymphs (auto) (1.0-4.6) x10^3/uL Absolute Monos (auto) (0.0-1.3) x10^3/uL Absolute Nucleated RBC (0.00-0.01) x10^3u/L Lymphocytes % (24.0-44.0) % Monocytes % (0.0-12.0) % Eosinophils % (0.00-5.0) % Basophils % (0.0-0.4) % Absolute Granulocytes (1.4-6.9) x10^3/uL Basophils # (0-0.4) x10^3/uL PT 10.4 (9.4-12.5) SECONDS INR 0.95 (0.8-3.0) APTT 27.3 (25.1-36.5) SECONDS D-Dimer 0.66 H* (0.0-0.50) mg/L pO2/FiO2 Ratio 21.0 % VBG pH 7.53 H (7.32-7.42) VBG pCO2 at Pat Temp 35 L (42-55) mm/Hg VBG pO2 at Pat Temp 122 H (25-40) mm/Hg VBG HCO3 29.2 H* (22-28) meq/L VBG O2 Sat ([place]) 99.0 (95-100) VBG Base Excess 6.3 H (-2.0-2.0) VBG Hemoglobin 11.6 VBG Carboxyhemoglobin 8.9 H* (0.0-6.9) % T HGB POC Potassium 4.2 (3.5-5.1) Sodium 138 (137-145) mmol/L Potassium 3.7 (3.5-5.1) mmol/L Chloride 103 (98-107) mmol/L Carbon Dioxide 31 H (22-30) mmol/L Anion Gap 8.2 (5-15) MEQ/L BUN 9 (7-17) mg/dL Creatinine 0.50 L (0.52-1.04) mg/dL Estimated GFR > 60.0 ML/MIN Glucose 206 H (74-106) mg/dL Lactic Acid (0.4-2.0) Calcium 8.5 (8.4-10.2) mg/dL Magnesium 1.5 L (1.6-2.3) mg/dL Total Bilirubin 0.50 (0.2-1.3) mg/dL AST 31 (14-36) U/L ALT 29 (0-35) U/L Alkaline Phosphatase 91 (38-126) U/L Troponin I (0.000-0.034) ng/mL NT-Pro-B Natriuret Pep 568 (<300) pg/mL Serum Total Protein 6.9 (6.3-8.2) g/dL Albumin 3.9 (3.5-5.0) g/dL Influenza Type A Ag (NEGATIVE) Influenza Type B Ag (NEGATIVE) RSV (PCR) (NEGATIVE) SARS-CoV-2 (PCR) (NEGATIVE) 08/31/23 08/31/23 Range/Units 14:28 14:09 WBC 8.5 (4.0-10.5) x10^3/uL RBC 4.33 (4.1-5.4) x10^6/uL Hgb 11.0 L (12.0-16.0) g/dL Hct 36.0 (35-47) % MCV 83.1 (78-100) fL MCH 25.4 L (26-32) pg MCHC 30.6 L (32-36) g/dL RDW 13.6 (11.5-14.0) % Plt Count 220 (150-450) x10^3/uL MPV 12.4 H (7.5-11.0) fL Gran % 69.3 H (36.0-66.0) % Immature Gran % (Auto) 0.4 (0.00-0.4) % Nucleat RBC Rel Count 0.0 (0.00-0.1) % Eos # (Auto) 0.13 (0-0.5) x10^3/uL Immature Gran # (Auto) 0.03 (0.00-0.03) x10^3u/L Absolute Lymphs (auto) 1.94 (1.0-4.6) x10^3/uL Absolute Monos (auto) 0.47 (0.0-1.3) x10^3/uL Absolute Nucleated RBC 0.00 (0.00-0.01) x10^3u/L Lymphocytes % 22.9 L (24.0-44.0) % Monocytes % 5.5 (0.0-12.0) % Eosinophils % 1.5 (0.00-5.0) % Basophils % 0.4 (0.0-0.4) % Absolute Granulocytes 5.87 (1.4-6.9) x10^3/uL Basophils # 0.03 (0-0.4) x10^3/uL PT (9.4-12.5) SECONDS INR (0.8-3.0) APTT (25.1-36.5) SECONDS D-Dimer (0.0-0.50) mg/L pO2/FiO2 Ratio % VBG pH (7.32-7.42) VBG pCO2 at Pat Temp (42-55) mm/Hg VBG pO2 at Pat Temp (25-40) mm/Hg VBG HCO3 (22-28) meq/L VBG O2 Sat ([place]) (95-100) VBG Base Excess (-2.0-2.0) VBG Hemoglobin VBG Carboxyhemoglobin (0.0-6.9) % T HGB POC Potassium (3.5-5.1) Sodium (137-145) mmol/L Potassium (3.5-5.1) mmol/L Chloride (98-107) mmol/L Carbon Dioxide (22-30) mmol/L Anion Gap (5-15) MEQ/L BUN (7-17) mg/dL Creatinine (0.52-1.04) mg/dL Estimated GFR ML/MIN Glucose (74-106) mg/dL Lactic Acid 1.5 (0.4-2.0) Calcium (8.4-10.2) mg/dL Magnesium (1.6-2.3) mg/dL Total Bilirubin (0.2-1.3) mg/dL AST (14-36) U/L ALT (0-35) U/L Alkaline Phosphatase (38-126) U/L Troponin I (0.000-0.034) ng/mL NT-Pro-B Natriuret Pep (<300) pg/mL Serum Total Protein (6.3-8.2) g/dL Albumin (3.5-5.0) g/dL Influenza Type A Ag (NEGATIVE) Influenza Type B Ag (NEGATIVE) RSV (PCR) (NEGATIVE) SARS-CoV-2 (PCR) (NEGATIVE) <CLARIBEL REMY - Last Filed: 08/31/23 19:56> - Progress Progress: improved Air Movement: fair Blood Culture(s) Obtained: No Antibiotics given: Yes Counseled pt/family regarding: lab results, diagnosis, rad results, smoking cessation <RUTH CHOU - Last Filed: 09/02/23 20:55> - Progress Progress Note: Patient is a 53-year-old female presents to the emergency department for eval uation of shortness of breath. Patient evaluated and worked up by Dr. Chou. Patient was endorsed to me at the change of shift. Dr. Chou had spoken to Dr. Richardson however it was a hospitalist change of shift and therefore patient was endorsed to me to endorse to Dr. Norton. Patient presented to our ED with shortness of breath. Patient was hypoxic upon arrival. 3 L oxygen nasal cannula placed on patient. EKG revealed normal sinus rhythm. Chest x-ray shows chronic changes with nonacute features. CBC reveals a hemoglobin of 11. CMP essentially unremarkable. COVID-negative. D-dimer positive. Patient's left lower extremity slightly more swollen than the right. Venous duplex performed. Ultrasound negative. Dr. Chou elected to forego the CTA chest. Magnesium level was slightly low. Patient received magnesium sulfate replacement. Troponin negative. VBG completed as well. Patient examining changes consistent with respiratory alkalosis/hyperventilating likely secondary to shortness of breath. Patient received 2 DuoNebs. Magnesium sulfate administered. Azithromycin administered. Methylprednisolone administered as well. Patient reassessed. She feels better. Patient still remains clinically she has improved. She was in some respiratory distress upon arrival now no obvious respiratory distress. Patient observed in the room eating [employer]. Patient able to speak in complete sentences. Plan of care established with patient. She agrees to admission to [facility] for further evaluation and treatment. Portions of this note were created with voice recognition technology. There may be grammatical, spelling, punctuation or sound alike errors No critical care time Complex of data reviewed and analyzed is moderate. Complex of data reviewed and analyzed is extensive. Test ordered test reviewed. Clinical correlation made between the test results and patient's history and physical examination. Plan of care discussed with Dr. Norton hospitalist who excepts admission to observation. Risk of complication and a risk morbidity/mortality of patient management is high. Patient received 2 dual neb treatments. Patient remains hypoxic. Patient will require hospitalization for further evaluation and treatment. Vital stable. Time spent to admit patient approximately 20 minutes. Plan of care established via shared decision making. No social determinants of health present to impede follow-up on discharge. Portions of this note were created with voice recognition technology. There may be grammatical, spelling, punctuation or sound alike errors 08/31/23 19:56 (CLARIBEL REMY) Patient presented in respiratory distress and was immediately given a DuoNeb and 125mg of SoluMedrol which improved her sxs. -Vitals notable for tachypnea, borderline hypoxia -Overall sick but non-toxic with coarse breath sounds and wheezes bilaterally. Moderate respiratory distress. Clinical picture is consistent with COPD, especially with known history. Other diagnoses such as PE, PNA, ACS, CHF, allergic reaction seem less likely. -Starting on nebs and steroids with basic workup and will re-assess. LLE swelling LLE venous duplex performed which showed no DVT. D-dimer was very minimally elevated. Due to patient's body habitus, neg DVT and known source of dyspnea CTA of chest was decided to not be performed. After multiple nebs, the patients respiratory status has not improved to the point I feel comfortable sending them home. They still have labored respirations and wheezes requiring 3L NC. I think scheduled nebs and steroids in the hospital are necessary. I still think other more malignant processes are possible but seem unlikely. Labs and imaging were without major abnormality. Still overall stable on NC. Continuing supplemental O2, nebs, fluids. I have discussed the case with the hospitalist and they agree with plan for admission. (RUTH CHOU) Medical Desision Making - Diagnostic Testing Diagnostic test were ordered, analyzed, and reviewed by me: Yes Radiological Interpretation: Interpreted by me, Reviewed by me - Risk of complications The pt has a mod risk of morbidity or mortality based on: Need for prescription drug management <RUTH CHOU - Last Filed: 09/02/23 20:55> - Departure Departure Disposition: Observation <CLARIBEL REMY - Last Filed: 08/31/23 19:56> - Departure Critical Care Time: No <RUTH CHOU - Last Filed: 09/02/23 20:55> - Departure Clinical Impression: COPD exacerbation, Shortness of breath, Localized swelling of left lower extremity, Anemia, Hyperglycemia due to type 2 diabetes mellitus, Hypomagnesemia, Class 3 obesity with alveolar hypoventilation and body mass index (BMI) of 60.0 to 69.9 in adult, Wheezing Condition: Stable
[2023-08-31] MEDS ORDERED: solu-MEDROL ONE ×3 (14:28→21:13)
[2023-08-31] MEDS ORDERED: Sterile H2O 10 ml IJ ONE ×3 (14:28→21:14)
[2023-08-31 14:34] LABS: VBG BASE EXCESS 6.3 (-2.0-2.0); VBG HCO3- 29.2 meq/L (22-28); VBG HEMOGLOBIN 11.6; VBG POTASSIUM 4.2 (3.5-5.1); VBG pH 7.53 (7.32-7.42)
[2023-08-31 14:35] LABS: VBG CARBOXYHEMOGLOBIN 8.9 % T HGB (0.0-6.9)
[2023-08-31] MEDS ORDERED: Zithromax 500 MG/ 250 ML NaCl Premix 500 MG/250 ML IVPB IV ONE ×2 (14:45→15:05)
[2023-08-31 14:57] LABS: Absolute Neutrophil Ct (ANC) 5.87 x10^3/uL (1.4-6.9); BASOPHIL % 0.4 % (0.0-0.4); Basophil (Absolute #) 0.03 x10^3/uL (0-0.4); Eosinophil % 1.5 % (0.00-5.0); Eosinophil (Absolute #) 0.13 x10^3/uL (0-0.5); IMMATURE GRAN # 0.03 x10^3u/L (0.00-0.03); IMMATURE GRAN % 0.4 % (0.00-0.4); Lymphocyte (Absolute #) 1.94 x10^3/uL (1.0-4.6); Lymphocytes % 22.9 % (24.0-44.0); Mean Cell Volume 83.1 fL (78-100); Mean Corpuscular Hemoglobin 25.4 pg (26-32); Mean Corpuscular Hgb Concent. 30.6 g/dL (32-36); Mean Platelet Volume 12.4 fL (7.5-11.0); Monocyte (Absolute #) 0.47 x10^3/uL (0.0-1.3); Monocytes % 5.5 % (0.0-12.0); Neutrophil % 69.3 % (36.0-66.0); Platelet Count 220 x10^3/uL (150-450); Red Blood Count 4.33 x10^6/uL (4.1-5.4); Red Cell Distribution Width 13.6 % (11.5-14.0); White Blood Count 8.5 x10^3/uL (4.0-10.5)
[2023-08-31 15:18] LABS: ALBUMIN 3.9 g/dL (3.5-5.0); ALKALINE PHOSPHATASE 91 U/L (38-126); ANION GAP 8.2 MEQ/L (5-15); BLOOD UREA NITROGEN 9 mg/dL (7-17); CHLORIDE 103 mmol/L (98-107); Calcium 8.5 mg/dL (8.4-10.2); Carbon Dioxide 31 mmol/L (22-30); EST GLOMERULAR FILTRATION RATE > 60.0 ML/MIN; Glucose 206 mg/dL (74-106); INR 0.95 (0.8-3.0); MAGNESIUM 1.5 mg/dL (1.6-2.3); NT PRO BNPII 568 pg/mL (<300); PROTIME 10.4 SECONDS (9.4-12.5); PTT 27.3 SECONDS (25.1-36.5); Potassium 3.7 mmol/L (3.5-5.1); SGOT/AST 31 U/L (14-36); SGPT/ALT 29 U/L (0-35); SODIUM 138 mmol/L (137-145); Total Protein 6.9 g/dL (6.3-8.2)
[2023-08-31 15:23] LABS: D-DIMER QUANTITATIVE 0.66 mg/L (0.0-0.50)
[2023-08-31] MEDS ORDERED: MAGNESIUM SULF 2 G/50 ML BAG 2 GM/50 ML PIGGYBACK IV ONE ×2 (15:26→16:24)
[2023-08-31 15:38] LABS: INFLUENZA A NEGATIVE (NEGATIVE); INFLUENZA B NEGATIVE (NEGATIVE); RESPIRATORY SYNCTIAL VIRUS NEGATIVE (NEGATIVE); SARS-CoV-2 Xpert Express NEGATIVE (NEGATIVE)
--- NOTE | 2023-08-31 18:16 | XRAY ---
Indication: Short of breath. Cough. History of asthma. Comparison: April 21, 2023 Portable chest again demonstrates blunting left costophrenic angle and small right base calcified granuloma. Heart not enlarged for AP portable technique. Bony thorax intact. No new cardiopulmonary abnormalities. Impression: Nonacute chest with chronic features.
--- NOTE | 2023-08-31 18:18 | XRAY ---
Indication: Pain and swelling. Morbid obesity. Two-dimensional sonogram and color Doppler imaging of the major venous vessels of the left leg performed. Comparison: None No thrombus seen in the examined deep venous vessels of the left leg including greater saphenous vein. Veins demonstrate normal compressibility. Venous waveforms are normal with and without augmentation. Posterior needle demonstrates incidental 5.1 x 1.4 x 3.3 cm Brewster cyst. Impression: Left leg negative for DVT. Incidental Brewster's cyst. Comment: Preliminary report was given.
[2023-08-31] MEDS ORDERED: TYLENOL 325 MG PO PRN (20:34)
[2023-08-31] MEDS ORDERED: MILK OF MAGNESIA 30 ML PO PRN (20:34)
[2023-08-31] MEDS ORDERED: Docusate Sodium 100 MG PO PRN (20:34)
--- NOTE | 2023-08-31 20:56 | PCM.HP ---
History of Present Illness - Chief Complaint Chief Complaint: SOB, hypoxia, COPD exacerbation Date: 08/31/23 History of Present Illness: This is a 53-year-old female admitted for treatment of COPD exacerbation, hypoxia. She has past medical history of tobacco dependence, obstructive lung disease reported this asthma, sarcoidosis w/ secondary pancreatitis, cirrhosis on daily Prednisone 20mg daily, morbid obesity (BMI 60.6). She presented to the ER this afternoon with shortness of breath sounds Reported ongoing treatment for UTI. She was noted to have saturations of 88 to 91%. On arrival she was afebrile, heart rate 75, blood pressure 210/96, sat 93%. Labs significant for WBC 8.5, hemoglobin 11, platelets 229; creatinine 0.5, glucose 2 6, ABG 7.5 . Influenza, RSV, COVID-negative. Doppler negative for extremity was negative for DVT. Chest x-ray notable for some left costophrenic angle blunting calcified granulomas otherwise no acute pathology. In the ED she was given DuoNebs, mag sulfate, Solu-Medrol 125, azithromycin. - Review of Systems Eyes: No Symptoms Ears, Nose, & Throat: No Symptoms Respiratory: Short Of Breath, Wheezing Cardiac: No Symptoms Abdominal/Gastrointestinal: No Symptoms Genitourinary Symptoms: No Symptoms Musculoskeletal: No Symptoms Skin: No Symptoms Neurological: No Symptoms Psychological: No Symptoms Medications & Allergies Home Medications: Home Medication List Albuterol 2.5 mg/3 ml Neb [Proventil 2.5 mg/3 ml Neb] 2.5 mg IH DAILY PRN PRN 05/16/14 [History Confirmed 08/31/23] Lorazepam 1 mg [Ativan 1 MG] 1 mg PO HS 05/16/14 [History Confirmed 08/31/23] Montelukast Sodium 10 mg [Singulair 10 MG] 10 mg PO DAILY 05/16/14 [History Confirmed 08/31/23] Albuterol 8 gm Mdi Hfa [Ventolin Hfa MDI] 2 puff IH QID 11/21/16 [History Confirmed 08/31/23] [place]-3 Fatty Acids/Fish Oil [Fish Oil 1,000 mg Capsule] 1,000 mg PO QID 07/25/18 [History Confirmed 08/31/23] Vitamin E 200 unit PO TID 07/25/18 [History Confirmed 08/31/23] Insulin Aspart [Novolog] See Rx Instructions .ROUTE .COMPLEX 01/30/21 [History Confirmed 08/31/23] Ezetimibe 10 mg [Zetia 10 MG] 10 mg PO DAILY 04/21/23 [History Confirmed 08/31/23] Fluticasone/Vilanterol [Breo Ellipta 200-25 Mcg INH] 1 puff IH DAILY 04/21/23 [History Confirmed 08/31/23] Hydrocodone/Acetaminophen [Hydrocodone-Acetamin 10-325 mg] 1 tab PO QID 08/31/23 [History Confirmed 08/31/23] Nitrofurantoin Macro 100 mg [Macrobid 100MG Capsule] 1 tab PO BID 08/31/23 [History Confirmed 08/31/23] Omeprazole 40 mg PO DAILY 08/31/23 [History Confirmed 08/31/23] Prednisone 20 mg [Deltasone 20 mg] 20 mg PO DAILY 08/31/23 [History Confirmed 08/31/23] Allergies/Adverse Reactions: Allergies Allergy/AdvReac Type Severity Reaction Status Date / Time carisoprodol [From Soma] Allergy Intermediate Verified 08/31/23 14:24 aspirin Allergy Verified 08/31/23 14:24 buprenorphine Allergy Verified 08/31/23 14:24 codeine [Codeine] Allergy Verified 08/31/23 14:24 cyclobenzaprine HCl Allergy Verified 08/31/23 14:24 [From Flexeril] duloxetine [From Cymbalta] Allergy Verified 08/31/23 14:24 morphine Allergy Verified 08/31/23 14:24 Penicillins Allergy Verified 08/31/23 14:24 Sulfa (Sulfonamide Allergy Verified 08/31/23 14:24 Antibiotics) [Sulfa(Sulfonamide Antibiotics)] glipizide AdvReac Verified 08/31/23 14:24 metformin AdvReac Verified 08/31/23 14:24 - Past Medical History Past Medical History: Yes Neurological History: Migraines ENT History: Glaucoma Cardiac History: High Cholesterol, Myocardial Infarction (NM) Respiratory History: Asthma, Bronchitis, Pneumonia Endocrine Medical History: Diabetes Type I, Liver Disease Musculoskelatal History: Other GI Medical History: No Pertinent History, Gallbladder Disease, Other History: Other Pyscho-Social History: Anxiety, Other Reproductive Disorders: No Pertinent History Comment: L SPINE FUSION 2010; R LE SURGERY AFTER WORK INJURY PERALYSIS OF THE BOWEL, STRESS INCONTINENT. RIGHT RIB FRACTURES. ANEMIA. SARCODOSIS LIVER DISORDER - Past Surgical History Past Surgical History: Yes (VIOLENT DURING SURGERY) Neuro Surgical History: Other Cardiac History: No Pertinent History Respiratory Surgery: No Pertinent History GI Surgical History: Cholecystectomy Genitourinary Surgical Hx: Other Musculskeletal Surgical Hx: Orthopedic Surgery Female Surgical History: Section, Tubal Ligation Other Surgical History: 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 rt leg cadav. lumbar cadav bones. KIDNEY STONES REMOVED. L SPINE FUSION 2010; R LE SURGERY AFTER WORK INJURY - Social History Smoking Status: Current every day smoker How long have you smoked: 22 yrs Exposure to second hand smoke: Yes Alcohol: None Drug Use: marijuana Significant Family History: no pertinent family hx - Physical Exam Vital Signs: Vital Signs - 24 hr Temp Pulse Resp BP BP Pulse Ox 08/31/23 20:14 92 H 93 L 08/31/23 20:01 93 L 08/31/23 19:30 88 20 193/83 95 08/31/23 19:21 87 16 194/97 94 L 08/31/23 19:20 91 L 08/31/23 19:16 100 08/31/23 19:10 93 L 08/31/23 19:03 94 L 08/31/23 18:30 176/76 08/31/23 18:29 76 22 93 L 08/31/23 18:01 61 20 181/94 95 08/31/23 17:00 178/89 92 L 08/31/23 16:31 70 22 189/100 93 L 08/31/23 16:01 169/93 08/31/23 15:19 65 24 173/87 100 08/31/23 15:01 70 173/87 93 L 08/31/23 14:52 78 18 93 L 08/31/23 14:00 97.8 F 75 28 H 210/96 93 L General Appearance: no apparent distress Neurologic Exam: alert, oriented x 3 Eye Exam: PERRL/EOMI Ears, Nose, Throat Exam: normal ENT inspection Neck Exam: normal inspection Respiratory Exam: wheezing, No respiratory distress Cardiovascular Exam: regular rate/rhythm Gastrointestinal/Abdomen Exam: soft Back Exam: normal inspection Extremity Exam: normal inspection Skin Exam: normal color Results - Labs Lab/Micro Results: Lab Results-Last 24 Hours 08/31/23 08/31/23 08/31/23 Range/Units 14:09 14:28 14:28 WBC 8.5 (4.0-10.5) x10^3/uL RBC 4.33 (4.1-5.4) x10^6/uL Hgb 11.0 L (12.0-16.0) g/dL Hct 36.0 (35-47) % MCV 83.1 (78-100) fL MCH 25.4 L (26-32) pg MCHC 30.6 L (32-36) g/dL RDW 13.6 (11.5-14.0) % Plt Count 220 (150-450) x10^3/uL MPV 12.4 H (7.5-11.0) fL Gran % 69.3 H (36.0-66.0) % Immature Gran % (Auto) 0.4 (0.00-0.4) % Nucleat RBC Rel Count 0.0 (0.00-0.1) % Eos # (Auto) 0.13 (0-0.5) x10^3/uL Immature Gran # (Auto) 0.03 (0.00-0.03) x10^3u/L Absolute Lymphs (auto) 1.94 (1.0-4.6) x10^3/uL Absolute Monos (auto) 0.47 (0.0-1.3) x10^3/uL Absolute Nucleated RBC 0.00 (0.00-0.01) x10^3u/L Lymphocytes % 22.9 L (24.0-44.0) % Monocytes % 5.5 (0.0-12.0) % Eosinophils % 1.5 (0.00-5.0) % Basophils % 0.4 (0.0-0.4) % Absolute Granulocytes 5.87 (1.4-6.9) x10^3/uL Basophils # 0.03 (0-0.4) x10^3/uL PT (9.4-12.5) SECONDS INR (0.8-3.0) APTT (25.1-36.5) SECONDS D-Dimer (0.0-0.50) mg/L pO2/FiO2 Ratio 21.0 % VBG pH 7.53 H (7.32-7.42) VBG pCO2 at Pat Temp 35 L (42-55) mm/Hg VBG pO2 at Pat Temp 122 H (25-40) mm/Hg VBG HCO3 29.2 H* (22-28) meq/L VBG O2 Sat ([place]enzie) 99.0 (95-100) VBG Base Excess 6.3 H (-2.0-2.0) VBG Hemoglobin 11.6 VBG Carboxyhemoglobin 8.9 H* (0.0-6.9) % T HGB POC Potassium 4.2 (3.5-5.1) Sodium (137-145) mmol/L Potassium (3.5-5.1) mmol/L Chloride (98-107) mmol/L Carbon Dioxide (22-30) mmol/L Anion Gap (5-15) MEQ/L BUN (7-17) mg/dL Creatinine (0.52-1.04) mg/dL Estimated GFR ML/MIN Glucose (74-106) mg/dL Lactic Acid 1.5 (0.4-2.0) Calcium (8.4-10.2) mg/dL Magnesium (1.6-2.3) mg/dL Total Bilirubin (0.2-1.3) mg/dL AST (14-36) U/L ALT (0-35) U/L Alkaline Phosphatase (38-126) U/L Troponin I (0.000-0.034) ng/mL NT-Pro-B Natriuret Pep (<300) pg/mL Serum Total Protein (6.3-8.2) g/dL Albumin (3.5-5.0) g/dL Influenza Type A Ag (NEGATIVE) Influenza Type B Ag (NEGATIVE) RSV (PCR) (NEGATIVE) SARS-CoV-2 (PCR) (NEGATIVE) 08/31/23 08/31/23 08/31/23 Range/Units 14:40 14:40 14:40 WBC (4.0-10.5) x10^3/uL RBC (4.1-5.4) x10^6/uL Hgb (12.0-16.0) g/dL Hct (35-47) % MCV (78-100) fL MCH (26-32) pg MCHC (32-36) g/dL RDW (11.5-14.0) % Plt Count (150-450) x10^3/uL MPV (7.5-11.0) fL Gran % (36.0-66.0) % Immature Gran % (Auto) (0.00-0.4) % Nucleat RBC Rel Count (0.00-0.1) % Eos # (Auto) (0-0.5) x10^3/uL Immature Gran # (Auto) (0.00-0.03) x10^3u/L Absolute Lymphs (auto) (1.0-4.6) x10^3/uL Absolute Monos (auto) (0.0-1.3) x10^3/uL Absolute Nucleated RBC (0.00-0.01) x10^3u/L Lymphocytes % (24.0-44.0) % Monocytes % (0.0-12.0) % Eosinophils % (0.00-5.0) % Basophils % (0.0-0.4) % Absolute Granulocytes (1.4-6.9) x10^3/uL Basophils # (0-0.4) x10^3/uL PT 10.4 (9.4-12.5) SECONDS INR 0.95 (0.8-3.0) APTT 27.3 (25.1-36.5) SECONDS D-Dimer 0.66 H* (0.0-0.50) mg/L pO2/FiO2 Ratio % VBG pH (7.32-7.42) VBG pCO2 at Pat Temp (42-55) mm/Hg VBG pO2 at Pat Temp (25-40) mm/Hg VBG HCO3 (22-28) meq/L VBG O2 Sat ([place]enzie) (95-100) VBG Base Excess (-2.0-2.0) VBG Hemoglobin VBG Carboxyhemoglobin (0.0-6.9) % T HGB POC Potassium (3.5-5.1) Sodium 138 (137-145) mmol/L Potassium 3.7 (3.5-5.1) mmol/L Chloride 103 (98-107) mmol/L Carbon Dioxide 31 H (22-30) mmol/L Anion Gap 8.2 (5-15) MEQ/L BUN 9 (7-17) mg/dL Creatinine 0.50 L (0.52-1.04) mg/dL Estimated GFR > 60.0 ML/MIN Glucose 206 H (74-106) mg/dL Lactic Acid (0.4-2.0) Calcium 8.5 (8.4-10.2) mg/dL Magnesium 1.5 L (1.6-2.3) mg/dL Total Bilirubin 0.50 (0.2-1.3) mg/dL AST 31 (14-36) U/L ALT 29 (0-35) U/L Alkaline Phosphatase 91 (38-126) U/L Troponin I < 0.012 (0.000-0.034) ng/mL NT-Pro-B Natriuret Pep 568 (<300) pg/mL Serum Total Protein 6.9 (6.3-8.2) g/dL Albumin 3.9 (3.5-5.0) g/dL Influenza Type A Ag (NEGATIVE) Influenza Type B Ag (NEGATIVE) RSV (PCR) (NEGATIVE) SARS-CoV-2 (PCR) (NEGATIVE) 08/31/23 08/31/23 Range/Units 14:55 18:13 WBC (4.0-10.5) x10^3/uL RBC (4.1-5.4) x10^6/uL Hgb (12.0-16.0) g/dL Hct (35-47) % MCV (78-100) fL MCH (26-32) pg MCHC (32-36) g/dL RDW (11.5-14.0) % Plt Count (150-450) x10^3/uL MPV (7.5-11.0) fL Gran % (36.0-66.0) % Immature Gran % (Auto) (0.00-0.4) % Nucleat RBC Rel Count (0.00-0.1) % Eos # (Auto) (0-0.5) x10^3/uL Immature Gran # (Auto) (0.00-0.03) x10^3u/L Absolute Lymphs (auto) (1.0-4.6) x10^3/uL Absolute Monos (auto) (0.0-1.3) x10^3/uL Absolute Nucleated RBC (0.00-0.01) x10^3u/L Lymphocytes % (24.0-44.0) % Monocytes % (0.0-12.0) % Eosinophils % (0.00-5.0) % Basophils % (0.0-0.4) % Absolute Granulocytes (1.4-6.9) x10^3/uL Basophils # (0-0.4) x10^3/uL PT (9.4-12.5) SECONDS INR (0.8-3.0) APTT (25.1-36.5) SECONDS D-Dimer (0.0-0.50) mg/L pO2/FiO2 Ratio % VBG pH (7.32-7.42) VBG pCO2 at Pat Temp (42-55) mm/Hg VBG pO2 at Pat Temp (25-40) mm/Hg VBG HCO3 (22-28) meq/L VBG O2 Sat ([place]enzie) (95-100) VBG Base Excess (-2.0-2.0) VBG Hemoglobin VBG Carboxyhemoglobin (0.0-6.9) % T HGB POC Potassium (3.5-5.1) Sodium (137-145) mmol/L Potassium (3.5-5.1) mmol/L Chloride (98-107) mmol/L Carbon Dioxide (22-30) mmol/L Anion Gap (5-15) MEQ/L BUN (7-17) mg/dL Creatinine (0.52-1.04) mg/dL Estimated GFR ML/MIN Glucose (74-106) mg/dL Lactic Acid (0.4-2.0) Calcium (8.4-10.2) mg/dL Magnesium (1.6-2.3) mg/dL Total Bilirubin (0.2-1.3) mg/dL AST (14-36) U/L ALT (0-35) U/L Alkaline Phosphatase (38-126) U/L Troponin I < 0.012 (0.000-0.034) ng/mL NT-Pro-B Natriuret Pep (<300) pg/mL Serum Total Protein (6.3-8.2) g/dL Albumin (3.5-5.0) g/dL Influenza Type A Ag NEGATIVE (NEGATIVE) Influenza Type B Ag NEGATIVE (NEGATIVE) RSV (PCR) NEGATIVE (NEGATIVE) SARS-CoV-2 (PCR) NEGATIVE (NEGATIVE) - Radiology Impressions Radiology Exams & Impressions: Radiology Procedures Category Date Time Status CHEST 1 VIEW (PORTABLE) Stat Exams 08/31/23 14:33 Completed VENOUS UNILAT/LIMITED EXTREMIT [US] Stat Exams 08/31/23 16:30 Completed - Other Procedures and Tests Respiratory Therapy 08/31/23 14:51 Respiratory Therapy Assessment DAILY 08/31/23 20:34 Oxygen Nasal Cannula 2 lpm Assessment/Plan (1) Wheezing Current Visit: Yes Status: Acute Assessment & Plan: ASSESSMENT #Acute exacerbation of obstructive lung disease reports h/o asthma although also tobacco dependence #Hypoxia #Tobacco dependence #DM on pump #Morbid obesity #Sarcoidosis affecting liver and pancreas #LLE - s/p negativ edoppler #UTI on Macrobid PLAN -Solumedrol 40 q8hr -Duonebs ATC -Maintain saturation 92%, currently on 3L NC -Continue Macrobid -Continue insulin pump -Continue home meds PPX: Lovenox Entire encounter performed via telemedicine Code(s): R06.2 - WHEEZING Telemedicine Encounter - Telemedicine Encounter Telemedicine Encounter: The entirety of this encounter was performed via Telemedicine"
[2023-08-31] MEDS ORDERED: Zofran 4 MG/2 ML VIAL IV PRN (20:59)
[2023-08-31] MEDS ORDERED: FISH OIL 1,000 MG CAPSULE PO ONE (21:13)
[2023-08-31] MEDS: solu-MEDROL 40 MG, Sterile H2O 10 ml 2 ML IV SCH ×2 (21:16)
[2023-08-31] MEDS: Ativan 1 MG PO SCH (21:16)
[2023-08-31] MEDS: Macrobid 100MG Capsule PO SCH (21:16)
[2023-08-31] MEDS ORDERED: VITAMIN E 400 UNIT PO SCH (22:00)
[2023-08-31] MEDS ORDERED: HYDROCODONE-ACETAMIN 10-325 MG PO SCH ×2 (22:00)
[2023-08-31] MEDS ORDERED: NON-FORMULARY ITEM (Omega-3 Fatty Acids/Fish Oil [Fish Oil 1,000 Mg Capsule] 1 EACH Capsul PO SCH (22:00)
[2023-08-31] MEDS ORDERED: HUMALOG SQ SCH (22:00)
[2023-08-31] MEDS: DUONEB 0.5-3 MG/3 ml Neb IH SCH (22:15)
[2023-09-01] MEDS: DUONEB 0.5-3 MG/3 ml Neb IH SCH ×6 (02:37→23:00)
[2023-09-01 04:40] LABS: Hematocrit 38.4 % (35-47); Hemoglobin 11.4 g/dL (12.0-16.0); Mean Cell Volume 83.8 fL (78-100); Mean Corpuscular Hemoglobin 24.9 pg (26-32); Mean Corpuscular Hgb Concent. 29.7 g/dL (32-36); Mean Platelet Volume 12.1 fL (7.5-11.0); Platelet Count 262 x10^3/uL (150-450); Red Blood Count 4.58 x10^6/uL (4.1-5.4); Red Cell Distribution Width 13.4 % (11.5-14.0); White Blood Count 11.8 x10^3/uL (4.0-10.5)
[2023-09-01 05:09] LABS: ANION GAP 10.8 MEQ/L (5-15); BLOOD UREA NITROGEN 10 mg/dL (7-17); CHLORIDE 101 mmol/L (98-107); Calcium 8.5 mg/dL (8.4-10.2); Carbon Dioxide 29 mmol/L (22-30); Creatinine 1 0.58 mg/dL (0.52-1.04); EST GLOMERULAR FILTRATION RATE > 60.0 ML/MIN; Glucose 321 mg/dL (74-106); Potassium 4.2 mmol/L (3.5-5.1); SODIUM 137 mmol/L (137-145)
--- NOTE | 2023-09-01 05:46 | PCM.NOTE ---
Date and Time: 09/01/23 0541 Subjective Assessment: HPI: This is a 53-year-old female admitted for treatment of COPD exacerbation, hypoxia. She has past medical history of tobacco dependence, obstructive lung disease reported this asthma, sarcoidosis w/ secondary pancreatitis, cirrhosis on daily Prednisone 20mg daily, morbid obesity (BMI 60.6). She presented to the ER 08/31/23 with shortness of breath. Reported ongoing treatment for UTI. She was noted to have saturations of 88 to 91%. On arrival she was afebrile, heart rate 75, blood pressure 210/96, sat 93%. Labs significant for WBC 8.5, hemoglobin 11, platelets 229; creatinine 0.5, glucose 2 6, ABG 7.5 /. Influenza, RSV, COVID-negative. Doppler negative for extremity was negative for DVT. Chest x-ray notable for some left costophrenic angle blunting calcified granulomas otherwise no acute pathology. In the ED she was given DuoNebs, mag sulfate, Solu-Medrol 125, azithromycin. 09/01: Met and examined patient at bedside. Endorses continued shortness of breath at all times, productive cough with yellow/green sputum, as well as wheezing. She does report cp with deep inhalation. CT chest showing new LLL non-calcified masslike opacity. No PE. Denies fever, abdominal pain, OSBORN, dizziness, N/V/D. - Review of Systems Constitutional: No Symptoms Eyes: No Symptoms Ears, Nose, & Throat: No Symptoms Respiratory: Cough, Short Of Breath, Wheezing Cardiac: Chest Pain (pleuritic), Edema (LLE) Abdominal/Gastrointestinal: No Symptoms Genitourinary Symptoms: No Symptoms Musculoskeletal: No Symptoms Skin: No Symptoms Neurological: No Symptoms Psychological: No Symptoms Endocrine: No Symptoms Hematologic/Lymphatic: No Symptoms Immunological/Allergic: No Symptoms Objective Exam General Appearance: no apparent distress Neurologic Exam: alert, oriented x 3, cooperative Skin Exam: normal color Eye Exam: PERRL Ears, Nose, Throat Exam: normal ENT inspection Neck Exam: normal inspection Respiratory Exam: wheezing Cardiovascular Exam: regular rate/rhythm, normal heart sounds Gastrointestinal/Abdomen Exam: soft, normal bowel sounds Extremity Exam: swelling Pelvic Exam: deferred Rectal Exam: deferred OBJECTIVE DATA Vital Signs: Vital Signs - 24 hr Temp Pulse Resp BP BP Pulse Ox 09/01/23 04:00 96.7 F 86 22 150/76 09/01/23 00:00 97.6 F 82 20 181/73 08/31/23 22:18 85 22 92 L 08/31/23 20:37 97.5 F 92 H 24 193/94 94 L 08/31/23 20:14 92 H 93 L 08/31/23 20:01 93 L 08/31/23 19:30 88 20 193/83 95 08/31/23 19:21 87 16 194/97 94 L 08/31/23 19:20 91 L 08/31/23 19:16 100 08/31/23 19:10 93 L 08/31/23 19:03 94 L 08/31/23 18:30 176/76 08/31/23 18:29 76 22 93 L 08/31/23 18:01 61 20 181/94 95 08/31/23 17:00 178/89 92 L 08/31/23 16:31 70 22 189/100 93 L 08/31/23 16:01 169/93 08/31/23 15:19 65 24 173/87 100 08/31/23 15:01 70 173/87 93 L 08/31/23 14:52 78 18 93 L 08/31/23 14:00 97.8 F 75 28 H 210/96 93 L Pain Assessment - Last Documented Pain Intensity 0 Pain Scale Used 0-10 Pain Scale Intake and Output: Intake & Output 08/29/23 08/30/23 08/31/23 09/01/23 11:59 11:59 11:59 11:59 Weight 161 kg Lab Results: Lab Results-Last 24 Hours 08/31/23 08/31/23 08/31/23 Range/Units 14:09 14:28 14:28 WBC 8.5 (4.0-10.5) x10^3/uL RBC 4.33 (4.1-5.4) x10^6/uL Hgb 11.0 L (12.0-16.0) g/dL Hct 36.0 (35-47) % MCV 83.1 (78-100) fL MCH 25.4 L (26-32) pg MCHC 30.6 L (32-36) g/dL RDW 13.6 (11.5-14.0) % Plt Count 220 (150-450) x10^3/uL MPV 12.4 H (7.5-11.0) fL Gran % 69.3 H (36.0-66.0) % Immature Gran % (Auto) 0.4 (0.00-0.4) % Nucleat RBC Rel Count 0.0 (0.00-0.1) % Eos # (Auto) 0.13 (0-0.5) x10^3/uL Immature Gran # (Auto) 0.03 (0.00-0.03) x10^3u/L Absolute Lymphs (auto) 1.94 (1.0-4.6) x10^3/uL Absolute Monos (auto) 0.47 (0.0-1.3) x10^3/uL Absolute Nucleated RBC 0.00 (0.00-0.01) x10^3u/L Lymphocytes % 22.9 L (24.0-44.0) % Monocytes % 5.5 (0.0-12.0) % Eosinophils % 1.5 (0.00-5.0) % Basophils % 0.4 (0.0-0.4) % Absolute Granulocytes 5.87 (1.4-6.9) x10^3/uL Basophils # 0.03 (0-0.4) x10^3/uL PT (9.4-12.5) SECONDS INR (0.8-3.0) APTT (25.1-36.5) SECONDS D-Dimer (0.0-0.50) mg/L pO2/FiO2 Ratio 21.0 % VBG pH 7.53 H (7.32-7.42) VBG pCO2 at Pat Temp 35 L (42-55) mm/Hg VBG pO2 at Pat Temp 122 H (25-40) mm/Hg VBG HCO3 29.2 H* (22-28) meq/L VBG O2 Sat (Mackenzie) 99.0 (95-100) VBG Base Excess 6.3 H (-2.0-2.0) VBG Hemoglobin 11.6 VBG Carboxyhemoglobin 8.9 H* (0.0-6.9) % T HGB POC Potassium 4.2 (3.5-5.1) Sodium (137-145) mmol/L Potassium (3.5-5.1) mmol/L Chloride (98-107) mmol/L Carbon Dioxide (22-30) mmol/L Anion Gap (5-15) MEQ/L BUN (7-17) mg/dL Creatinine (0.52-1.04) mg/dL Estimated GFR ML/MIN Glucose (74-106) mg/dL Lactic Acid 1.5 (0.4-2.0) Calcium (8.4-10.2) mg/dL Magnesium (1.6-2.3) mg/dL Total Bilirubin (0.2-1.3) mg/dL AST (14-36) U/L ALT (0-35) U/L Alkaline Phosphatase (38-126) U/L Troponin I (0.000-0.034) ng/mL NT-Pro-B Natriuret Pep (<300) pg/mL Serum Total Protein (6.3-8.2) g/dL Albumin (3.5-5.0) g/dL Influenza Type A Ag (NEGATIVE) Influenza Type B Ag (NEGATIVE) RSV (PCR) (NEGATIVE) SARS-CoV-2 (PCR) (NEGATIVE) 08/31/23 08/31/23 08/31/23 Range/Units 14:40 14:40 14:40 WBC (4.0-10.5) x10^3/uL RBC (4.1-5.4) x10^6/uL Hgb (12.0-16.0) g/dL Hct (35-47) % MCV (78-100) fL MCH (26-32) pg MCHC (32-36) g/dL RDW (11.5-14.0) % Plt Count (150-450) x10^3/uL MPV (7.5-11.0) fL Gran % (36.0-66.0) % Immature Gran % (Auto) (0.00-0.4) % Nucleat RBC Rel Count (0.00-0.1) % Eos # (Auto) (0-0.5) x10^3/uL Immature Gran # (Auto) (0.00-0.03) x10^3u/L Absolute Lymphs (auto) (1.0-4.6) x10^3/uL Absolute Monos (auto) (0.0-1.3) x10^3/uL Absolute Nucleated RBC (0.00-0.01) x10^3u/L Lymphocytes % (24.0-44.0) % Monocytes % (0.0-12.0) % Eosinophils % (0.00-5.0) % Basophils % (0.0-0.4) % Absolute Granulocytes (1.4-6.9) x10^3/uL Basophils # (0-0.4) x10^3/uL PT 10.4 (9.4-12.5) SECONDS INR 0.95 (0.8-3.0) APTT 27.3 (25.1-36.5) SECONDS D-Dimer 0.66 H* (0.0-0.50) mg/L pO2/FiO2 Ratio % VBG pH (7.32-7.42) VBG pCO2 at Pat Temp (42-55) mm/Hg VBG pO2 at Pat Temp (25-40) mm/Hg VBG HCO3 (22-28) meq/L VBG O2 Sat (Mackenzie) (95-100) VBG Base Excess (-2.0-2.0) VBG Hemoglobin VBG Carboxyhemoglobin (0.0-6.9) % T HGB POC Potassium (3.5-5.1) Sodium 138 (137-145) mmol/L Potassium 3.7 (3.5-5.1) mmol/L Chloride 103 (98-107) mmol/L Carbon Dioxide 31 H (22-30) mmol/L Anion Gap 8.2 (5-15) MEQ/L BUN 9 (7-17) mg/dL Creatinine 0.50 L (0.52-1.04) mg/dL Estimated GFR > 60.0 ML/MIN Glucose 206 H (74-106) mg/dL Lactic Acid (0.4-2.0) Calcium 8.5 (8.4-10.2) mg/dL Magnesium 1.5 L (1.6-2.3) mg/dL Total Bilirubin 0.50 (0.2-1.3) mg/dL AST 31 (14-36) U/L ALT 29 (0-35) U/L Alkaline Phosphatase 91 (38-126) U/L Troponin I < 0.012 (0.000-0.034) ng/mL NT-Pro-B Natriuret Pep 568 (<300) pg/mL Serum Total Protein 6.9 (6.3-8.2) g/dL Albumin 3.9 (3.5-5.0) g/dL Influenza Type A Ag (NEGATIVE) Influenza Type B Ag (NEGATIVE) RSV (PCR) (NEGATIVE) SARS-CoV-2 (PCR) (NEGATIVE) 08/31/23 08/31/23 08/31/23 Range/Units 14:55 18:13 22:00 WBC (4.0-10.5) x10^3/uL RBC (4.1-5.4) x10^6/uL Hgb (12.0-16.0) g/dL Hct (35-47) % MCV (78-100) fL MCH (26-32) pg MCHC (32-36) g/dL RDW (11.5-14.0) % Plt Count (150-450) x10^3/uL MPV (7.5-11.0) fL Gran % (36.0-66.0) % Immature Gran % (Auto) (0.00-0.4) % Nucleat RBC Rel Count (0.00-0.1) % Eos # (Auto) (0-0.5) x10^3/uL Immature Gran # (Auto) (0.00-0.03) x10^3u/L Absolute Lymphs (auto) (1.0-4.6) x10^3/uL Absolute Monos (auto) (0.0-1.3) x10^3/uL Absolute Nucleated RBC (0.00-0.01) x10^3u/L Lymphocytes % (24.0-44.0) % Monocytes % (0.0-12.0) % Eosinophils % (0.00-5.0) % Basophils % (0.0-0.4) % Absolute Granulocytes (1.4-6.9) x10^3/uL Basophils # (0-0.4) x10^3/uL PT (9.4-12.5) SECONDS INR (0.8-3.0) APTT (25.1-36.5) SECONDS D-Dimer (0.0-0.50) mg/L pO2/FiO2 Ratio % VBG pH (7.32-7.42) VBG pCO2 at Pat Temp (42-55) mm/Hg VBG pO2 at Pat Temp (25-40) mm/Hg VBG HCO3 (22-28) meq/L VBG O2 Sat (Mackenzie) (95-100) VBG Base Excess (-2.0-2.0) VBG Hemoglobin VBG Carboxyhemoglobin (0.0-6.9) % T HGB POC Potassium (3.5-5.1) Sodium (137-145) mmol/L Potassium (3.5-5.1) mmol/L Chloride (98-107) mmol/L Carbon Dioxide (22-30) mmol/L Anion Gap (5-15) MEQ/L BUN (7-17) mg/dL Creatinine (0.52-1.04) mg/dL Estimated GFR ML/MIN Glucose (74-106) mg/dL Lactic Acid (0.4-2.0) Calcium (8.4-10.2) mg/dL Magnesium (1.6-2.3) mg/dL Total Bilirubin (0.2-1.3) mg/dL AST (14-36) U/L ALT (0-35) U/L Alkaline Phosphatase (38-126) U/L Troponin I < 0.012 < 0.012 (0.000-0.034) ng/mL NT-Pro-B Natriuret Pep (<300) pg/mL Serum Total Protein (6.3-8.2) g/dL Albumin (3.5-5.0) g/dL Influenza Type A Ag NEGATIVE (NEGATIVE) Influenza Type B Ag NEGATIVE (NEGATIVE) RSV (PCR) NEGATIVE (NEGATIVE) SARS-CoV-2 (PCR) NEGATIVE (NEGATIVE) 09/01/23 09/01/23 Range/Units 04:28 04:28 WBC 11.8 H (4.0-10.5) x10^3/uL RBC 4.58 (4.1-5.4) x10^6/uL Hgb 11.4 L (12.0-16.0) g/dL Hct 38.4 (35-47) % MCV 83.8 (78-100) fL MCH 24.9 L (26-32) pg MCHC 29.7 L (32-36) g/dL RDW 13.4 (11.5-14.0) % Plt Count 262 (150-450) x10^3/uL MPV 12.1 H (7.5-11.0) fL Gran % (36.0-66.0) % Immature Gran % (Auto) (0.00-0.4) % Nucleat RBC Rel Count (0.00-0.1) % Eos # (Auto) (0-0.5) x10^3/uL Immature Gran # (Auto) (0.00-0.03) x10^3u/L Absolute Lymphs (auto) (1.0-4.6) x10^3/uL Absolute Monos (auto) (0.0-1.3) x10^3/uL Absolute Nucleated RBC (0.00-0.01) x10^3u/L Lymphocytes % (24.0-44.0) % Monocytes % (0.0-12.0) % Eosinophils % (0.00-5.0) % Basophils % (0.0-0.4) % Absolute Granulocytes (1.4-6.9) x10^3/uL Basophils # (0-0.4) x10^3/uL PT (9.4-12.5) SECONDS INR (0.8-3.0) APTT (25.1-36.5) SECONDS D-Dimer (0.0-0.50) mg/L pO2/FiO2 Ratio % VBG pH (7.32-7.42) VBG pCO2 at Pat Temp (42-55) mm/Hg VBG pO2 at Pat Temp (25-40) mm/Hg VBG HCO3 (22-28) meq/L VBG O2 Sat (Mackenzie) (95-100) VBG Base Excess (-2.0-2.0) VBG Hemoglobin VBG Carboxyhemoglobin (0.0-6.9) % T HGB POC Potassium (3.5-5.1) Sodium 137 (137-145) mmol/L Potassium 4.2 (3.5-5.1) mmol/L Chloride 101 (98-107) mmol/L Carbon Dioxide 29 (22-30) mmol/L Anion Gap 10.8 (5-15) MEQ/L BUN 10 (7-17) mg/dL Creatinine 0.58 (0.52-1.04) mg/dL Estimated GFR > 60.0 ML/MIN Glucose 321 H (74-106) mg/dL Lactic Acid (0.4-2.0) Calcium 8.5 (8.4-10.2) mg/dL Magnesium (1.6-2.3) mg/dL Total Bilirubin (0.2-1.3) mg/dL AST (14-36) U/L ALT (0-35) U/L Alkaline Phosphatase (38-126) U/L Troponin I (0.000-0.034) ng/mL NT-Pro-B Natriuret Pep (<300) pg/mL Serum Total Protein (6.3-8.2) g/dL Albumin (3.5-5.0) g/dL Influenza Type A Ag (NEGATIVE) Influenza Type B Ag (NEGATIVE) RSV (PCR) (NEGATIVE) SARS-CoV-2 (PCR) (NEGATIVE) Radiology Exams: Radiology Procedures Category Date Time Status CHEST 1 VIEW (PORTABLE) Stat Exams 08/31/23 14:33 Completed VENOUS UNILAT/LIMITED EXTREMIT [US] Stat Exams 08/31/23 16:30 Completed Assessment/Plan (1) COPD exacerbation Current Visit: Yes Status: Acute Assessment & Plan: -Solumedrol 40 q8hr -Duonebs ATC -Maintain saturation 92%, currently on RA 09/01: -CT showing mass like opacity in left lower lobe noncalcified masslike opacity. PET/CT may yield further information. -home o2 qualification, may consider pulm consult Code(s): J44.1 - CHRONIC OBSTRUCTIVE PULMONARY DISEASE W (ACUTE) EXACERBATION (2) Hypoxia Current Visit: Yes Status: Acute Assessment & Plan: -see copd Code(s): R09.02 - HYPOXEMIA (3) Wheezing Current Visit: Yes Status: Acute Assessment & Plan: -see copd Code(s): R06.2 - WHEEZING (4) Edema of left lower extremity Current Visit: Yes Status: Acute Assessment & Plan: -doppler negative for DVT Code(s): R60.0 - LOCALIZED EDEMA (5) Sarcoidosis of lung with sarcoidosis of lymph nodes Current Visit: No Status: Acute Assessment & Plan: -noted, adds complexity Code(s): D86.2 - SARCOIDOSIS OF LUNG WITH SARCOIDOSIS OF LYMPH NODES (6) Type 2 diabetes mellitus Current Visit: No Status: Acute Qualifiers: Diabetes mellitus assisted insulin use: with watermaster use Diabetes mellitus complication status: with hyperglycemia Qualified Code(s): E11.65 - Type 2 diabetes mellitus with hyperglycemia; Z79.4 - residential (current) use of insulin Assessment & Plan: -insulin pump -ADA diet -A1c (7) UTI (lower urinary tract infection) Current Visit: No Status: Acute Assessment & Plan: -continue macrobid Code(s): N39.0 - URINARY TRACT INFECTION, SITE NOT SPECIFIED (8) Smoker Current Visit: Yes Status: Acute Assessment & Plan: -nicotine patch/advise cessation PPX: lovenox Code(s): F17.200 - NICOTINE DEPENDENCE, UNSPECIFIED, UNCOMPLICATED (9) Hypomagnesemia Current Visit: Yes Status: Acute Assessment & Plan: -Given 2g of mag sulfate in ER, will continue to monitor and replace as appropriate Code(s): E83.42 - HYPOMAGNESEMIA
[2023-09-01] MEDS ORDERED: solu-MEDROL ONE (06:25)
[2023-09-01] MEDS ORDERED: Sterile H2O 10 ml IJ ONE (06:25)
[2023-09-01] MEDS: solu-MEDROL 40 MG, Sterile H2O 10 ml 2 ML IV SCH ×2 (06:26)
[2023-09-01] MEDS: PATIENT OWN MEDICATION IH SCH (07:34)
[2023-09-01] MEDS ORDERED: MEDICATION INTERVENTION MC SCH (07:45)
[2023-09-01] MEDS: HYDROCODONE-ACETAMIN 10-325 MG PO SCH ×3 (08:00→20:59)
[2023-09-01] MEDS: Macrobid 100MG Capsule PO SCH ×2 (08:00→16:58)
[2023-09-01] MEDS: Zetia 10 MG PO SCH (09:10)
[2023-09-01] MEDS: FISH OIL 1,000 MG CAPSULE PO SCH ×4 (09:10→20:59)
[2023-09-01] MEDS: ENOXAPARIN SODIUM SQ SCH (09:11)
[2023-09-01] MEDS: Protonix 40MG Tablet PO SCH (09:11)
[2023-09-01] MEDS: Singulair 10 MG PO SCH (09:11)
[2023-09-01] MEDS ORDERED: HYDROCODONE-ACETAMIN 10-325 MG PO SCH (10:00)
[2023-09-01] MEDS ORDERED: NON-FORMULARY ITEM (Fluticasone/Vilanterol [Breo Ellipta 200-25 Mcg Inhalr] 1 EACH Blst.W. IH SCH (10:00)
--- NOTE | 2023-09-01 12:24 | XRAY ---
Indication: Elevated d-dimer. Multiple contiguous axial images obtained through the chest using 100 cc Isovue 370 contrast and PE protocol. Comparison: September 03, 2021 Adequate opacification of the pulmonary arteries. Mild respiration artifact limits evaluation the more distal lobar and segmental branches. No obvious pulmonary embolus. Heart is now enlarged. Aorta is normal in course and caliber. Stable tiny mediastinal and right hilar calcified nodes. No pathologic mediastinal/hilar lymphadenopathy. Lungs again demonstrates bibasilar subsegmental atelectasis/scarring and small right lower lobe calcified granuloma. Posterior lateral left lower lobe demonstrates new subpleural noncalcified masslike opacity measuring at least 2.5 x 3.1 x 1.6 cm. No infiltrate or effusion. Bony thorax intact again with old right 8/9 fractures. Limited upper abdomen again demonstrates fatty liver and cholecystectomy. Impression: 1. Respiration artifact limits pulmonary embolus evaluation. No obvious pulmonary embolus. 2. New left lower lobe noncalcified masslike opacity. PET/CT may yield further information. 3. Chronic findings including cardiomegaly, atelectasis/scarring, old right rib fractures, fatty liver, and old granulomatous disease.
[2023-09-01] MEDS: solu-MEDROL 40 MG, Sterile H2O 10 ml 1 ML IV SCH ×4 (14:36→20:58)
[2023-09-01] MEDS: Ativan 1 MG PO SCH (20:59)
[2023-09-02] MEDS: DUONEB 0.5-3 MG/3 ml Neb IH SCH ×6 (03:47→23:18)
[2023-09-02] MEDS: HYDROCODONE-ACETAMIN 10-325 MG PO SCH ×4 (04:55→19:42)
[2023-09-02] MEDS: solu-MEDROL 40 MG, Sterile H2O 10 ml 1 ML IV SCH ×6 (05:01→19:48)
--- NOTE | 2023-09-02 05:24 | PCM.NOTE ---
Date and Time: 09/02/23 0522 Subjective Assessment: HPI: This is a 53-year-old female admitted for treatment of COPD exacerbation, hypoxia. She has past medical history of tobacco dependence, obstructive lung disease reported this asthma, sarcoidosis w/ secondary pancreatitis, cirrhosis on daily Prednisone 20mg daily, morbid obesity (BMI 60.6). She presented to the ER 08/31/23 with shortness of breath. Reported ongoing treatment for UTI. She was noted to have saturations of 88 to 91%. On arrival she was afebrile, heart rate 75, blood pressure 210/96, sat 93%. Labs significant for WBC 8.5, hemoglobin 11, platelets 229; creatinine 0.5, glucose 2 6, ABG 7.5 /. Influenza, RSV, COVID-negative. Doppler negative for extremity was negative for DVT. Chest x-ray notable for some left costophrenic angle blunting calcified granulomas otherwise no acute pathology. In the ED she was given DuoNebs, mag sulfate, Solu-Medrol 125, azithromycin. 09/01: Met and examined patient at bedside. Endorses continued shortness of breath at all times, productive cough with yellow/green sputum, as well as wheezing. She does report cp with deep inhalation. CT chest showing new LLL non-calcified masslike opacity. No PE. Denies fever, abdominal pain, OSBORN, dizziness, N/V/D. 09/02/23: Examined patient bedside. Endorses improvement overall in shortness of breath. Report [employer] cough. Oxygen titrated down to 1L. Discussed CT chest findings with masslike opacity. This could pneumonia. Will treat with Azithromycin as patient states this is the only antibiotic she is not allergic to. Advised Pulmonology follow up. BP has been elevated since admission. Will start chlorthalidone and continue to monitor. - Review of Systems Constitutional: No Symptoms Eyes: No Symptoms Ears, Nose, & Throat: No Symptoms Respiratory: Cough, Short Of Breath, Wheezing Cardiac: Chest Pain (right sided last evening, less than one minute, none currently ) Abdominal/Gastrointestinal: No Symptoms Genitourinary Symptoms: No Symptoms Musculoskeletal: No Symptoms Skin: No Symptoms Neurological: No Symptoms Psychological: No Symptoms Endocrine: No Symptoms Objective Exam General Appearance: no apparent distress Neurologic Exam: alert, oriented x 3, cooperative Skin Exam: normal color Eye Exam: PERRL Ears, Nose, Throat Exam: normal ENT inspection Neck Exam: normal inspection Respiratory Exam: crackles/rales, wheezing Cardiovascular Exam: regular rate/rhythm, normal heart sounds Gastrointestinal/Abdomen Exam: soft, normal bowel sounds, tenderness Extremity Exam: swelling (BLE +1) Back Exam: normal inspection Pelvic Exam: deferred Rectal Exam: deferred OBJECTIVE DATA Vital Signs: Vital Signs - 24 hr Temp Pulse Resp BP Pulse Ox 09/02/23 04:00 97.3 F 77 18 186/85 96 09/01/23 23:00 87 16 96 09/01/23 22:54 97.3 F 83 19 183/78 92 L 09/01/23 20:14 78 09/01/23 19:04 97.1 F 77 20 180/81 93 L 09/01/23 18:50 91 H 16 94 L 09/01/23 16:00 97.1 F 79 19 181/87 95 09/01/23 15:28 72 22 95 09/01/23 12:00 97.3 F 72 22 183/88 95 09/01/23 07:34 96.7 F 81 22 179/85 09/01/23 07:00 79 18 97 Pain Assessment - Last Documented Pain Intensity 10 Pain Scale Used 0-10 Pain Scale Intake and Output: Intake & Output 08/30/23 08/31/23 09/01/23 09/02/23 11:59 11:59 11:59 11:59 Intake Total 120 600 Balance 120 600 Weight 161 kg Lab Results: Lab Results-Last 24 Hours 09/01/23 09/01/23 09/01/23 Range/Units 04:28 04:28 04:28 Sodium 137 (137-145) mmol/L Potassium 4.2 (3.5-5.1) mmol/L Chloride 101 (98-107) mmol/L Carbon Dioxide 29 (22-30) mmol/L Anion Gap 10.8 (5-15) MEQ/L BUN 10 (7-17) mg/dL Creatinine 0.58 (0.52-1.04) mg/dL Estimated GFR > 60.0 ML/MIN Glucose 321 H (74-106) mg/dL Hemoglobin A1c 8.12 H (4.5-6.0) % Calcium 8.5 (8.4-10.2) mg/dL Magnesium 2.0 (1.6-2.3) mg/dL Radiology Exams: Radiology Procedures Category Date Time Status CHEST 1 VIEW (PORTABLE) Stat Exams 08/31/23 14:33 Completed CHEST WITH CONTRAST [CT] Stat Exams 09/01/23 09:56 Completed VENOUS UNILAT/LIMITED EXTREMIT [US] Stat Exams 08/31/23 16:30 Completed Assessment/Plan (1) COPD exacerbation Current Visit: Yes Status: Acute Assessment & Plan: (1) COPD exacerbation Current Visit: Yes Status: Acute Assessment & Plan: -Solumedrol 40 q8hr -Duonebs ATC -Maintain saturation 92%, currently on RA 09/01: -CT showing mass like opacity in left lower lobe noncalcified masslike opacity. PET/CT may yield further information. -home o2 qualification, may consider pulm consult 09/02: -titrated down to 1L and tolerating -Azithromycin added Code(s): J44.1 - CHRONIC OBSTRUCTIVE PULMONARY DISEASE W (ACUTE) EXACERBATION (2) Hypoxia Current Visit: Yes Status: Acute Assessment & Plan: -see copd Code(s): R09.02 - HYPOXEMIA (3) Wheezing Current Visit: Yes Status: Acute Assessment & Plan: -see copd Code(s): R06.2 - WHEEZING (4) Edema of left lower extremity Current Visit: Yes Status: Acute Assessment & Plan: -doppler negative for DVT Code(s): R60.0 - LOCALIZED EDEMA (5) Sarcoidosis of lung with sarcoidosis of lymph nodes Current Visit: No Status: Acute Assessment & Plan: -noted, adds complexity Code(s): D86.2 - SARCOIDOSIS OF LUNG WITH SARCOIDOSIS OF LYMPH NODES (6) Type 2 diabetes mellitus Current Visit: No Status: Acute Qualifiers: Diabetes mellitus terminal make up operator insulin use: with terminal make up operator use Diabetes mellitus complication status: with hyperglycemia Qualified Code(s): E11.65 - Type 2 diabetes mellitus with hyperglycemia; Z79.4 - long term acute care registered nurse (current) use of insulin Assessment & Plan: -insulin pump -ADA diet -A1c (7) UTI (lower urinary tract infection) Current Visit: No Status: Acute Assessment & Plan: -continue macrobid Code(s): N39.0 - URINARY TRACT INFECTION, SITE NOT SPECIFIED (8) Smoker Current Visit: Yes Status: Acute Assessment & Plan: -nicotine patch/advise cessation PPX: lovenox Code(s): F17.200 - NICOTINE DEPENDENCE, UNSPECIFIED, UNCOMPLICATED (9) Hypomagnesemia Current Visit: Yes Status: Acute Assessment & Plan: -Given 2g of mag sulfate in ER, will continue to monitor and replace as appropriate Code(s): E83.42 - HYPOMAGNESEMIA Code(s): J44.1 - CHRONIC OBSTRUCTIVE PULMONARY DISEASE W (ACUTE) EXACERBATION (2) Hypoxia Current Visit: Yes Status: Acute Code(s): R09.02 - HYPOXEMIA (3) Wheezing Current Visit: Yes Status: Acute Code(s): R06.2 - WHEEZING (4) Edema of left lower extremity Current Visit: Yes Status: Acute Code(s): R60.0 - LOCALIZED EDEMA (5) Sarcoidosis of lung with sarcoidosis of lymph nodes Current Visit: No Status: Acute Code(s): D86.2 - SARCOIDOSIS OF LUNG WITH SARCOIDOSIS OF LYMPH NODES (6) Type 2 diabetes mellitus Current Visit: No Status: Acute Qualifiers: Diabetes mellitus terminal make up operator insulin use: with fdc use Diabetes mellitus complication status: with hyperglycemia Qualified Code(s): E11.65 - Type 2 diabetes mellitus with hyperglycemia; Z79.4 - prison (current) use of insulin (7) UTI (lower urinary tract infection) Current Visit: No Status: Acute Code(s): N39.0 - URINARY TRACT INFECTION, SITE NOT SPECIFIED (8) Smoker Current Visit: Yes Status: Acute Code(s): F17.200 - NICOTINE DEPENDENCE, UNSPECIFIED, UNCOMPLICATED (9) Hypomagnesemia Current Visit: Yes Status: Acute Code(s): E83.42 - HYPOMAGNESEMIA
[2023-09-02 06:49] LABS: BASOPHIL % 0.1 % (0.0-0.4); Basophil (Absolute #) 0.02 x10^3/uL (0-0.4); Eosinophil % 0.3 % (0.00-5.0); Eosinophil (Absolute #) 0.04 x10^3/uL (0-0.5); Hematocrit 38.3 % (35-47); Hemoglobin 11.2 g/dL (12.0-16.0); IMMATURE GRAN # 0.12 x10^3u/L (0.00-0.03); IMMATURE GRAN % 0.9 % (0.00-0.4); Lymphocyte (Absolute #) 1.56 x10^3/uL (1.0-4.6); Lymphocytes % 11.1 % (24.0-44.0); Mean Cell Volume 85.3 fL (78-100); Mean Corpuscular Hemoglobin 24.9 pg (26-32); Mean Corpuscular Hgb Concent. 29.2 g/dL (32-36); Mean Platelet Volume 12.5 fL (7.5-11.0); Monocyte (Absolute #) 0.55 x10^3/uL (0.0-1.3); Monocytes % 3.9 % (0.0-12.0); Neutrophil % 83.7 % (36.0-66.0); Platelet Count 288 x10^3/uL (150-450); Red Blood Count 4.49 x10^6/uL (4.1-5.4); Red Cell Distribution Width 13.8 % (11.5-14.0); White Blood Count 14.1 x10^3/uL (4.0-10.5)
[2023-09-02] MEDS: PATIENT OWN MEDICATION IH SCH (07:24)
[2023-09-02 07:30] LABS: ALBUMIN 4.1 g/dL (3.5-5.0); BILIRUBIN,TOTAL 0.3 mg/dL (0.2-1.3); Calcium 8.9 mg/dL (8.4-10.2); Creatinine 1 0.56 mg/dL (0.52-1.04); EST GLOMERULAR FILTRATION RATE 110.4 ML/MIN; Potassium 4.6 mmol/L (3.5-5.1); Total Protein 7.1 g/dL (6.3-8.2)
[2023-09-02] MEDS: ENOXAPARIN SODIUM SQ SCH (10:41)
[2023-09-02] MEDS: Macrobid 100MG Capsule PO SCH ×2 (10:42→18:18)
[2023-09-02] MEDS: Zetia 10 MG PO SCH (10:42)
[2023-09-02] MEDS: Protonix 40MG Tablet PO SCH (10:42)
[2023-09-02] MEDS: Singulair 10 MG PO SCH (10:42)
[2023-09-02] MEDS: CHLORTHALIDONE PO SCH (10:42)
[2023-09-02] MEDS: FISH OIL 1,000 MG CAPSULE PO SCH ×4 (10:42→19:48)
[2023-09-02] MEDS ORDERED: Ativan 1 MG PO ONE (11:05)
[2023-09-02] MEDS: Zithromax 500 MG/ 250 ML NaCl Premix 500 MG/250 ML IVPB IV SCH (11:41)
[2023-09-02] MEDS: Ativan 1 MG PO SCH (19:55)
[2023-09-03] MEDS: DUONEB 0.5-3 MG/3 ml Neb IH SCH ×6 (03:43→22:30)
[2023-09-03] MEDS: solu-MEDROL 40 MG, Sterile H2O 10 ml 1 ML IV SCH ×6 (05:10→21:22)
[2023-09-03 05:22] LABS: Absolute Neutrophil Ct (ANC) 10.61 x10^3/uL (1.4-6.9); BASOPHIL % 0.1 % (0.0-0.4); Basophil (Absolute #) 0.01 x10^3/uL (0-0.4); Eosinophil (Absolute #) 0 x10^3/uL (0-0.5); Hemoglobin 11.1 g/dL (12.0-16.0); IMMATURE GRAN # 0.14 x10^3u/L (0.00-0.03); IMMATURE GRAN % 1.1 % (0.00-0.4); Lymphocyte (Absolute #) 1.83 x10^3/uL (1.0-4.6); Lymphocytes % 13.9 % (24.0-44.0); Mean Cell Volume 84.4 fL (78-100); Mean Corpuscular Hemoglobin 24.7 pg (26-32); Mean Corpuscular Hgb Concent. 29.2 g/dL (32-36); Mean Platelet Volume 12.4 fL (7.5-11.0); Monocyte (Absolute #) 0.55 x10^3/uL (0.0-1.3); Monocytes % 4.2 % (0.0-12.0); Neutrophil % 80.7 % (36.0-66.0); Platelet Count 301 x10^3/uL (150-450); Red Cell Distribution Width 13.3 % (11.5-14.0); White Blood Count 13.1 x10^3/uL (4.0-10.5)
--- NOTE | 2023-09-03 05:26 | PCM.NOTE ---
Date and Time: 09/03/23 0526 Subjective Assessment: HPI: This is a 53-year-old female admitted for treatment of COPD exacerbation, hypoxia. She has past medical history of tobacco dependence, obstructive lung disease reported this asthma, sarcoidosis w/ secondary pancreatitis, cirrhosis on daily Prednisone 20mg daily, morbid obesity (BMI 60.6). She presented to the ER 08/31/23 with shortness of breath. Reported ongoing treatment for UTI. She was noted to have saturations of 88 to 91%. On arrival she was afebrile, heart rate 75, blood pressure 210/96, sat 93%. Labs significant for WBC 8.5, hemoglobin 11, platelets 229; creatinine 0.5, glucose 2 6, ABG 7.5 . Influenza, RSV, COVID-negative. Doppler negative for extremity was negative for DVT. Chest x-ray notable for some left costophrenic angle blunting calcified granulomas otherwise no acute pathology. In the ED she was given DuoNebs, mag sulfate, Solu-Medrol 125, azithromycin. 09/01: Met and examined patient at bedside. Endorses continued shortness of breath at all times, productive cough with yellow/green sputum, as well as wheezing. She does report cp with deep inhalation. CT chest showing new LLL non-calcified masslike opacity. No PE. Denies fever, abdominal pain, OSBORN, dizziness, N/V/D. 09/02/23: Examined patient bedside. Endorses improvement overall in shortness of breath. 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 Oxygen titrated down to 1L. Discussed CT chest findings with masslike opacity. This could pneumonia. Will treat with Azithromycin as patient states this is the only antibiotic she is not allergic to. Advised Pulmonology follow up. BP has been elevated since admission. Will start chlorthalidone and continue to monitor. 09/03/23: Met with patient bedside. She is now on RA, states cough has improved some. Noted wheezing throughout on auscultation. Advised patient that she will need to follow up with pulmonology as op for CT findings. She most likely will need repeat CT or PET, possible bronch pending those results. If she continues to improve overnight possible d/c tomorrow. - Review of Systems Constitutional: No Symptoms Eyes: No Symptoms Ears, Nose, & Throat: No Symptoms Respiratory: Cough, Short Of Breath Cardiac: No Symptoms (BLE edema +1), Edema Abdominal/Gastrointestinal: No Symptoms Genitourinary Symptoms: No Symptoms Musculoskeletal: No Symptoms Skin: No Symptoms Neurological: No Symptoms Psychological: No Symptoms Objective Exam General Appearance: no apparent distress Neurologic Exam: alert, oriented x 3, cooperative Skin Exam: normal color Eye Exam: PERRL Ears, Nose, Throat Exam: normal ENT inspection Neck Exam: normal inspection Respiratory Exam: wheezing Cardiovascular Exam: regular rate/rhythm, normal heart sounds, edema Gastrointestinal/Abdomen Exam: soft, normal bowel sounds Extremity Exam: normal inspection Back Exam: normal inspection OBJECTIVE DATA Vital Signs: Vital Signs - 24 hr Temp Pulse Resp BP Pulse Ox 09/03/23 04:00 97.8 F 78 20 200/88 91 L 09/03/23 00:00 97.9 F 86 24 184/79 93 L 09/02/23 23:18 75 16 94 L 09/02/23 20:00 97.7 F 82 16 201/90 94 L 09/02/23 18:41 83 16 93 L 09/02/23 16:00 98.0 F 69 20 181/79 92 L 09/02/23 15:32 68 18 94 L 09/02/23 15:29 95 09/02/23 12:00 98.0 F 68 20 199/87 95 09/02/23 10:44 70 18 92 L 09/02/23 07:02 98.0 F 67 20 183/84 95 09/02/23 07:00 76 18 96 Pain Assessment - Last Documented Pain Intensity 4 Pain Scale Used 0-10 Pain Scale Intake and Output: Intake & Output 08/31/23 09/01/23 09/02/23 09/03/23 11:59 11:59 11:59 11:59 Intake Total 120 960 610 Balance 120 960 610 Weight 161 kg Lab Results: Lab Results-Last 24 Hours 09/02/23 09/02/23 09/03/23 Range/Units 06:25 06:25 05:02 WBC 14.1 H 13.1 H (4.0-10.5) x10^3/uL RBC 4.49 4.50 (4.1-5.4) x10^6/uL Hgb 11.2 L 11.1 L (12.0-16.0) g/dL Hct 38.3 38.0 (35-47) % MCV 85.3 84.4 (78-100) fL MCH 24.9 L 24.7 L (26-32) pg MCHC 29.2 L 29.2 L (32-36) g/dL RDW 13.8 13.3 (11.5-14.0) % Plt Count 288 301 (150-450) x10^3/uL MPV 12.5 H 12.4 H (7.5-11.0) fL Gran % 83.7 H 80.7 H (36.0-66.0) % Immature Gran % (Auto) 0.9 H 1.1 H (0.00-0.4) % Nucleat RBC Rel Count 0.0 0.0 (0.00-0.1) % Eos # (Auto) 0.04 0 (0-0.5) x10^3/uL Immature Gran # (Auto) 0.12 H 0.14 H (0.00-0.03) x10^3u/L Absolute Lymphs (auto) 1.56 1.83 (1.0-4.6) x10^3/uL Absolute Monos (auto) 0.55 0.55 (0.0-1.3) x10^3/uL Absolute Nucleated RBC 0.00 0.00 (0.00-0.01) x10^3u/L Lymphocytes % 11.1 L 13.9 L (24.0-44.0) % Monocytes % 3.9 4.2 (0.0-12.0) % Eosinophils % 0.3 0.0 (0.00-5.0) % Basophils % 0.1 0.1 (0.0-0.4) % Absolute Granulocytes 11.80 H 10.61 H (1.4-6.9) x10^3/uL Basophils # 0.02 0.01 (0-0.4) x10^3/uL Sodium 137 (137-145) mmol/L Potassium 4.6 (3.5-5.1) mmol/L Chloride 101 (98-107) mmol/L Carbon Dioxide 29 (22-30) mmol/L Anion Gap 12.0 (5-15) MEQ/L BUN 18 H (7-17) mg/dL Creatinine 0.56 (0.52-1.04) mg/dL Estimated GFR 110.4 ML/MIN Glucose 232 H (74-106) mg/dL Calcium 8.9 (8.4-10.2) mg/dL Total Bilirubin 0.30 (0.2-1.3) mg/dL AST 18 (14-36) U/L ALT 29 (0-35) U/L Alkaline Phosphatase 78 (38-126) U/L Serum Total Protein 7.1 (6.3-8.2) g/dL Albumin 4.1 (3.5-5.0) g/dL Radiology Exams: Radiology Procedures Category Date Time Status CHEST WITH CONTRAST [CT] Stat Exams 09/01/23 09:56 Completed Multi-Disciplinary Progress Notes: Multi-Disciplinary Progress Notes 09/02/23 09:41 Case Management Note by Jenise Lacy S/W PATIENT- SHE CONTINUES TO DENY ANY NEW NEEDS AT TIME OF DC. SHE PLANS TO DC HOME TO HER PLF AT TIME OF DC Initialized on 09/02/23 09:41 - END OF NOTE Assessment/Plan (1) COPD exacerbation Current Visit: Yes Status: Acute Assessment & Plan: -Solumedrol 40 q8hr -Duonebs ATC -Maintain saturation 92%, currently on RA 09/01: -CT showing mass like opacity in left lower lobe noncalcified masslike opacity. PET/CT may yield further information. -home o2 qualification, may consider pulm consult 09/02: -titrated down to 1L and tolerating -Azithromycin added 09/03: -now on RA, continue steroids Code(s): J44.1 - CHRONIC OBSTRUCTIVE PULMONARY DISEASE W (ACUTE) EXACERBATION (2) Hypoxia Current Visit: Yes Status: Acute Assessment & Plan: -see copd Code(s): R09.02 - HYPOXEMIA (3) Wheezing Current Visit: Yes Status: Acute Assessment & Plan: -see copd Code(s): R06.2 - WHEEZING (4) Edema of left lower extremity Current Visit: Yes Status: Acute Assessment & Plan: -doppler negative for DVT Code(s): R60.0 - LOCALIZED EDEMA (5) Sarcoidosis of lung with sarcoidosis of lymph nodes Current Visit: No Status: Acute Assessment & Plan: -noted, adds complexity Code(s): D86.2 - SARCOIDOSIS OF LUNG WITH SARCOIDOSIS OF LYMPH NODES (6) Type 2 diabetes mellitus Current Visit: No Status: Acute Qualifiers: Diabetes mellitus film librarian insulin use: with film librarian use Diabetes mellitus complication status: with hyperglycemia Qualified Code(s): E11.65 - Type 2 diabetes mellitus with hyperglycemia; Z79.4 - detention (current) use of insulin Assessment & Plan: -insulin pump -ADA diet -A1c (7) UTI (lower urinary tract infection) Current Visit: No Status: Acute Assessment & Plan: -continue macrobid Code(s): N39.0 - URINARY TRACT INFECTION, SITE NOT SPECIFIED (8) Smoker Current Visit: Yes Status: Acute Assessment & Plan: -nicotine patch/advise cessation (9) Hypomagnesemia Current Visit: Yes Status: Acute Assessment & Plan: -Given 2g of mag sulfate in ER, will continue to monitor and replace as appropriate Code(s): E83.42 - HYPOMAGNESEMIA 10 Pneumonia -Due to multi allergies, will treat with azithromycin PPX: lovenox Code(s): F17.200 - NICOTINE DEPENDENCE, UNSPECIFIED, UNCOMPLICATED Code(s): J44.1 - CHRONIC OBSTRUCTIVE PULMONARY DISEASE W (ACUTE) EXACERBATION (2) Hypoxia Current Visit: Yes Status: Acute Code(s): R09.02 - HYPOXEMIA (3) Wheezing Current Visit: Yes Status: Acute Code(s): R06.2 - WHEEZING (4) Edema of left lower extremity Current Visit: Yes Status: Acute Code(s): R60.0 - LOCALIZED EDEMA (5) Sarcoidosis of lung with sarcoidosis of lymph nodes Current Visit: No Status: Acute Code(s): D86.2 - SARCOIDOSIS OF LUNG WITH SARCOIDOSIS OF LYMPH NODES (6) Type 2 diabetes mellitus Current Visit: No Status: Acute Qualifiers: Diabetes mellitus film librarian insulin use: with half-way use Diabetes mellitus complication status: with hyperglycemia Qualified Code(s): E11.65 - Type 2 diabetes mellitus with hyperglycemia; Z79.4 - detention (current) use of insulin (7) UTI (lower urinary tract infection) Current Visit: No Status: Acute Code(s): N39.0 - URINARY TRACT INFECTION, SITE NOT SPECIFIED (8) Smoker Current Visit: Yes Status: Acute Code(s): F17.200 - NICOTINE DEPENDENCE, UNSPECIFIED, UNCOMPLICATED (9) Hypomagnesemia Current Visit: Yes Status: Acute Code(s): E83.42 - HYPOMAGNESEMIA (10) Pneumonia Current Visit: Yes Status: Acute Code(s): J18.9 - PNEUMONIA, UNSPECIFIED ORGANISM
[2023-09-03 05:38] LABS: ALBUMIN 4.1 g/dL (3.5-5.0); ANION GAP 8.9 MEQ/L (5-15); BILIRUBIN,TOTAL 0.3 mg/dL (0.2-1.3); Creatinine 1 0.79 mg/dL (0.52-1.04); EST GLOMERULAR FILTRATION RATE 90.5 ML/MIN; Potassium 4.1 mmol/L (3.5-5.1); Total Protein 7.1 g/dL (6.3-8.2)
[2023-09-03] MEDS: PATIENT OWN MEDICATION IH SCH (06:42)
[2023-09-03] MEDS: HYDROCODONE-ACETAMIN 10-325 MG PO SCH ×4 (07:20→19:30)
[2023-09-03] MEDS: Macrobid 100MG Capsule PO SCH ×2 (07:41→16:07)
[2023-09-03] MEDS: Zetia 10 MG PO SCH (09:23)
[2023-09-03] MEDS: FISH OIL 1,000 MG CAPSULE PO SCH ×4 (09:23→21:22)
[2023-09-03] MEDS: Singulair 10 MG PO SCH (09:24)
[2023-09-03] MEDS: CHLORTHALIDONE PO SCH (09:24)
[2023-09-03] MEDS: Protonix 40MG Tablet PO SCH (09:24)
[2023-09-03] MEDS: ENOXAPARIN SODIUM SQ SCH (09:25)
[2023-09-03] MEDS: Zithromax 500 MG/ 250 ML NaCl Premix 500 MG/250 ML IVPB IV SCH (09:25)
[2023-09-03] MEDS ORDERED: CHLORTHALIDONE PO SCH (15:56)
[2023-09-03] MEDS ORDERED: CHLORTHALIDONE PO STA (16:17)
[2023-09-03] MEDS: APRESOLINE 20 MG/ML INJ IV PRN (19:30)
[2023-09-03] MEDS: Ativan 1 MG PO SCH (21:22)
[2023-09-04] MEDS: HYDROCODONE-ACETAMIN 10-325 MG PO SCH ×2 (00:07→06:04)
[2023-09-04] MEDS: APRESOLINE 20 MG/ML INJ IV PRN (00:07)
[2023-09-04 00:52] LABS: Appearance Clear (Clear); Bacteria None Seen /HPF (None Seen); Bilirubin Negative (Negative); Blood Negative (Negative); Epithelial Cells None Seen /HPF (None Seen); Glucose, Urine 500 mg/dL (Negative); Hyaline Casts NONE SEEN /LPF (0-2); Ketones Negative (Negative); Leukocyte Esterase Negative (Negative); Nitrite Negative (Negative); Ph 7.5 (4.6-8.0); Protein,Urine Dip 100 (Negative); RBC 0-2 /HPF (0-5); Urobilinogen 0.2 mg/dL (0.2); WBC 0-2 /HPF (0-5)
[2023-09-04 00:55] LABS: ADD URINE CULTURE? NO (NO)
[2023-09-04] MEDS: DUONEB 0.5-3 MG/3 ml Neb IH SCH ×3 (02:55→11:05)
[2023-09-04 04:41] LABS: Absolute Neutrophil Ct (ANC) 13.04 x10^3/uL (1.4-6.9); BASOPHIL % 0.2 % (0.0-0.4); Basophil (Absolute #) 0.04 x10^3/uL (0-0.4); Eosinophil % 0.4 % (0.00-5.0); Eosinophil (Absolute #) 0.07 x10^3/uL (0-0.5); Hematocrit 41.8 % (35-47); Hemoglobin 12.6 g/dL (12.0-16.0); IMMATURE GRAN # 0.28 x10^3u/L (0.00-0.03); IMMATURE GRAN % 1.6 % (0.00-0.4); Lymphocyte (Absolute #) 2.67 x10^3/uL (1.0-4.6); Lymphocytes % 15.5 % (24.0-44.0); Mean Cell Volume 82.3 fL (78-100); Mean Corpuscular Hemoglobin 24.8 pg (26-32); Mean Corpuscular Hgb Concent. 30.1 g/dL (32-36); Mean Platelet Volume 11.5 fL (7.5-11.0); Monocyte (Absolute #) 1.11 x10^3/uL (0.0-1.3); Monocytes % 6.4 % (0.0-12.0); Neutrophil % 75.9 % (36.0-66.0); Platelet Count 359 x10^3/uL (150-450); Red Blood Count 5.08 x10^6/uL (4.1-5.4); Red Cell Distribution Width 13.5 % (11.5-14.0); White Blood Count 17.2 x10^3/uL (4.0-10.5)
[2023-09-04 05:08] LABS: ALBUMIN 4.5 g/dL (3.5-5.0); ANION GAP 10.5 MEQ/L (5-15); BILIRUBIN,TOTAL 0.4 mg/dL (0.2-1.3); Calcium 9.8 mg/dL (8.4-10.2); Creatinine 1 0.78 mg/dL (0.52-1.04); EST GLOMERULAR FILTRATION RATE 91.9 ML/MIN; Potassium 4.1 mmol/L (3.5-5.1); Total Protein 7.7 g/dL (6.3-8.2)
[2023-09-04] MEDS: solu-MEDROL 40 MG, Sterile H2O 10 ml 1 ML IV SCH ×2 (06:04)
[2023-09-04] MEDS: PATIENT OWN MEDICATION IH SCH (07:05)
[2023-09-04] MEDS: Macrobid 100MG Capsule PO SCH (08:45)
[2023-09-04] MEDS: Zetia 10 MG PO SCH (09:31)
[2023-09-04] MEDS: FISH OIL 1,000 MG CAPSULE PO SCH (09:32)
[2023-09-04] MEDS: Protonix 40MG Tablet PO SCH (09:32)
[2023-09-04] MEDS: ENOXAPARIN SODIUM SQ SCH (09:32)
[2023-09-04] MEDS: Singulair 10 MG PO SCH (09:32)
[2023-09-04] MEDS: Zithromax 500 MG/ 250 ML NaCl Premix 500 MG/250 ML IVPB IV SCH (09:34)
[2023-09-04] MEDS ORDERED: CHLORTHALIDONE PO SCH (10:00)
[2023-09-04 11:09] VITALS: PULSE 91; O2SAT 96
[2023-09-04 11:12] VITALS: BP 137/82; RESP 20; TEMP 97.3
--- NOTE | 2023-09-04 11:27 | PCM.DS ---
Discharge Summary Date of Admission: 08/31/23 20:10 Date of Discharge: 09/04/23 Admitting Physician: MARLENE CARNEY MD Primary Care Provider: JAI AGUERO NP Allergies Allergies carisoprodol [From Soma] Allergy (Intermediate, Verified 08/31/23 14:24) aspirin Allergy (Verified 08/31/23 14:24) buprenorphine Allergy (Verified 08/31/23 14:24) codeine [Codeine] Allergy (Verified 08/31/23 14:24) cyclobenzaprine HCl [From Flexeril] Allergy (Verified 08/31/23 14:24) duloxetine [From Cymbalta] Allergy (Verified 08/31/23 14:24) morphine Allergy (Verified 08/31/23 14:24) Penicillins Allergy (Verified 08/31/23 14:24) Sulfa (Sulfonamide Antibiotics) [Sulfa(Sulfonamide Antibiotics)] Allergy (Verified 08/31/23 14:24) glipizide Adverse Reaction (Verified 08/31/23 14:24) metformin Adverse Reaction (Verified 08/31/23 14:24) nicotine [From Nicoderm CQ] Adverse Reaction (Verified 09/01/23 04:45) All ABX except Macrobid & Zithromax Allergy (Uncoded 09/01/23 13:12) Allergic to all muscle relaxers Allergy (Uncoded 09/01/23 13:13) Hospital Summary - Hospital Course Hospital Course: This is a 53-year-old female admitted for treatment of COPD exacerbation, hypoxia. She has past medical history of tobacco dependence, obstructive lung disease reported this asthma, sarcoidosis w/ secondary pancreatitis, cirrhosis on daily Prednisone 20mg daily, morbid obesity (BMI 60.6). She presented to the ER 08/31/23 with shortness of breath. Reported ongoing treatment for UTI. She was noted to have saturations of 88 to 91%. On arrival she was afebrile, heart rate 75, blood pressure 210/96, sat 93%. Labs significant for WBC 8.5, hemoglobin 11, platelets 229; creatinine 0.5, glucose 2 6, ABG 7.5 2/35/122. Influenza, RSV, COVID-negative. Doppler negative for extremity was negative for DVT. Chest x-ray notable for some left costophrenic angle blunting calcified granulomas otherwise no acute pathology. In the ED she was given DuoNebs, mag sulfate, Solu-Medrol 125, azithromycin. During hospitalizationpatient symptoms of dyspnea and cough improved. BS remains elevated from steroids. CT showed mass in left lung which may just be consolidation from pneumonia. We discussed this with her and she will need follow up CT to make sure this clears. Given her history and underlying lung disease, we strongly recommend follow up with marketing program manager. She has had some hypertension as well which we have started a mlodipine for on discharge, she has been advised to keep a blood pressure log until her follow up with PCP. She is stable for discharge. New Diagnosis: COPD exacerbation/pneumonia New Medications: Zithromax/prednisone/amlodipine Follow Up: PCP/Pulm Latest Assessment & Plan -Solumedrol 40 q8hr -Duonebs ATC -Maintain saturation 92%, currently on RA 09/01: -CT showing mass like opacity in left lower lobe noncalcified masslike opacity. PET/CT may yield further information. -home o2 qualification, may consider pulm consult 09/02: -titrated down to 1L and tolerating -Azithromycin added 09/03: -now on RA, continue steroids Code(s): J44.1 - CHRONIC OBSTRUCTIVE PULMONARY DISEASE W (ACUTE) EXACERBATION (2) Hypoxia Current Visit: Yes Status: Acute Assessment & Plan: -see copd Code(s): R09.02 - HYPOXEMIA (3) Wheezing Current Visit: Yes Status: Acute Assessment & Plan: -see copd Code(s): R06.2 - WHEEZING (4) Edema of left lower extremity Current Visit: Yes Status: Acute Assessment & Plan: -doppler negative for DVT Code(s): R60.0 - LOCALIZED EDEMA (5) Sarcoidosis of lung with sarcoidosis of lymph nodes Current Visit: No Status: Acute Assessment & Plan: -noted, adds complexity Code(s): D86.2 - SARCOIDOSIS OF LUNG WITH SARCOIDOSIS OF LYMPH NODES (6) Type 2 diabetes mellitus Current Visit: No Status: Acute Qualifiers: Diabetes mellitus residential insulin use: with regional intermodal truck driver use Diabetes mellitus complication status: with hyperglycemia Qualified Code(s): E11.65 - Type 2 diabetes mellitus with hyperglycemia; Z79.4 - [facility] (current) use of insulin Assessment & Plan: -insulin pump -ADA diet -A1c (7) UTI (lower urinary tract infection) Current Visit: No Status: Acute Assessment & Plan: -continue macrobid Code(s): N39.0 - URINARY TRACT INFECTION, SITE NOT SPECIFIED (8) Smoker Current Visit: Yes Status: Acute Assessment & Plan: -nicotine patch/advise cessation (9) Hypomagnesemia Current Visit: Yes Status: Acute Assessment & Plan: -Given 2g of mag sulfate in ER, will continue to monitor and replace as appropriate Code(s): E83.42 - HYPOMAGNESEMIA 10 Pneumonia -Due to multi allergies, will treat with azithromycin Code(s): F17.200 - NICOTINE DEPENDENCE, UNSPECIFIED, UNCOMPLICATED I spent 35 minutes [id number] with the patient on the day of discharge p erforming discharge exam, discussing hospital stay and discharge instructions with patient and caregivers, preparation of discharge records, prescriptions & referral forms and addressing any questions/concerns the patient had as documented above. - Vitals & Intake/Output Vital Signs: Vital Signs Temperature 97.3 F 09/04/23 11:12 Pulse Rate 91 H 09/04/23 11:12 Respiratory Rate 20 09/04/23 11:12 Blood Pressure 137/82 09/04/23 11:12 O2 Sat by Pulse Oximetry 96 09/04/23 11:12 Intake & Output: Intake & Output 09/01/23 09/02/23 09/03/23 09/04/23 11:59 11:59 11:59 11:59 Intake Total 115 205 6065 1830 Balance 139 531 1294 1830 Weight 161 kg - Lab Result Diagrams: 09/04/23 04:36 09/04/23 04:36 Lab Results-Last 24 Hrs: Lab Results-Last 24 Hours 09/04/23 09/04/23 09/04/23 Range/Units 00:38 04:36 04:36 WBC 17.2 H (4.0-10.5) x10^3/uL RBC 5.08 (4.1-5.4) x10^6/uL Hgb 12.6 (12.0-16.0) g/dL Hct 41.8 (35-47) % MCV 82.3 (78-100) fL MCH 24.8 L (26-32) pg MCHC 30.1 L (32-36) g/dL RDW 13.5 (11.5-14.0) % Plt Count 359 (150-450) x10^3/uL MPV 11.5 H (7.5-11.0) fL Gran % 75.9 H (36.0-66.0) % Immature Gran % (Auto) 1.6 H (0.00-0.4) % Nucleat RBC Rel Count 0.0 (0.00-0.1) % Eos # (Auto) 0.07 (0-0.5) x10^3/uL Immature Gran # (Auto) 0.28 H (0.00-0.03) x10^3u/L Absolute Lymphs (auto) 2.67 (1.0-4.6) x10^3/uL Absolute Monos (auto) 1.11 (0.0-1.3) x10^3/uL Absolute Nucleated RBC 0.00 (0.00-0.01) x10^3u/L Lymphocytes % 15.5 L (24.0-44.0) % Monocytes % 6.4 (0.0-12.0) % Eosinophils % 0.4 (0.00-5.0) % Basophils % 0.2 (0.0-0.4) % Absolute Granulocytes 13.04 H (1.4-6.9) x10^3/uL Basophils # 0.04 (0-0.4) x10^3/uL Sodium 137 (137-145) mmol/L Potassium 4.1 (3.5-5.1) mmol/L Chloride 92 L (98-107) mmol/L Carbon Dioxide 38 H (22-30) mmol/L Anion Gap 10.5 (5-15) MEQ/L BUN 20 H (7-17) mg/dL Creatinine 0.78 (0.52-1.04) mg/dL Estimated GFR 91.9 ML/MIN Glucose 163 H (74-106) mg/dL Calcium 9.8 (8.4-10.2) mg/dL Total Bilirubin 0.40 (0.2-1.3) mg/dL AST 22 (14-36) U/L ALT 30 (0-35) U/L Alkaline Phosphatase 79 (38-126) U/L Serum Total Protein 7.7 (6.3-8.2) g/dL Albumin 4.5 (3.5-5.0) g/dL Urine Color Yellow (Yellow) Urine Appearance Clear (Clear) Urine pH 7.5 (4.6-8.0) Ur Specific [place] 1.010 (1.005-1.030) Urine Protein 100 A (Negative) Urine Glucose (UA) 500 A (Negative) mg/dL Urine Ketones Negative (Negative) Urine Blood Negative (Negative) Urine Nitrite Negative (Negative) Urine Bilirubin Negative (Negative) Urine Urobilinogen 0.2 (0.2) mg/dL Ur Leukocyte Esterase Negative (Negative) U Hyaline Cast (Auto) NONE SEEN (0-2) /LPF Urine Microscopic RBC 0-2 (0-5) /HPF Urine Microscopic WBC 0-2 (0-5) /HPF Ur Epithelial Cells None Seen (None Seen) /HPF Urine Bacteria None Seen (None Seen) /HPF Urine Culture Reflexed NO (NO) Micro Results-Entire Visit: Accuchecks Date 09/04/23 Date 09/04/23 Date 09/03/23 Date 09/03/23 - Procedures and Test Procedures and Tests throughout Hospitalization: Therapy Orders & Screens 08/31/23 14:51 Respiratory Therapy Assessment DAILY Comment: 08/31/23 20:34 Oxygen Nasal Cannula 2 lpm Comment: Diagnosis: SOB, hypoxia, COPD exacerbation 09/01/23 07:00 Respiratory MDI DAILY Comment: ABDON REYES DAILY-PT'S OWN Diagnosis: SOB, hypoxia, COPD exacerbation 09/04/23 01:48 Incentive Spirometry UD Comment: Diagnosis: SOB, hypoxia, COPD exacerbation Discharge Exam General Appearance: no apparent distress Neurologic Exam: alert, oriented x 3, cooperative Eye Exam: PERRL Ears, Nose, Throat Exam: normal ENT inspection Neck Exam: normal inspection Respiratory Exam: wheezing Cardiovascular Exam: regular rate/rhythm, normal heart sounds Gastrointestinal/Abdomen Exam: soft, normal bowel sounds Pelvic Exam: deferred Rectal Exam: deferred Back Exam: normal inspection Extremity Exam: normal inspection Skin Exam: normal color Final Diagnosis/Problem List - Final Discharge Diagnosis/Problem (1) COPD exacerbation Current Visit: Yes Status: Acute Code(s): J44.1 - CHRONIC OBSTRUCTIVE PULMONARY DISEASE W (ACUTE) EXACERBATION (2) Hypoxia Current Visit: Yes Status: Acute Code(s): R09.02 - HYPOXEMIA (3) Wheezing Current Visit: Yes Status: Acute Code(s): R06.2 - WHEEZING (4) Edema of left lower extremity Current Visit: Yes Status: Acute Code(s): R60.0 - LOCALIZED EDEMA (5) Sarcoidosis of lung with sarcoidosis of lymph nodes Current Visit: No Status: Acute Code(s): D86.2 - SARCOIDOSIS OF LUNG WITH SARCOIDOSIS OF LYMPH NODES (6) Type 2 diabetes mellitus Current Visit: No Status: Acute (7) UTI (lower urinary tract infection) Current Visit: No Status: Acute Code(s): N39.0 - URINARY TRACT INFECTION, SITE NOT SPECIFIED (8) Smoker Current Visit: Yes Status: Acute Code(s): F17.200 - NICOTINE DEPENDENCE, UNSPECIFIED, UNCOMPLICATED (9) Hypomagnesemia Current Visit: Yes Status: Acute Code(s): E83.42 - HYPOMAGNESEMIA (10) Pneumonia Current Visit: Yes Status: Acute Code(s): J18.9 - PNEUMONIA, UNSPECIFIED ORGANISM - Discharge Disposition: Home, Self-Care Condition: Stable Prescriptions: New Azithromycin [Azithromycin 250 mg Pack] 250 mg PO UD #6 tablet Budesonide/Formoterol Fumarate [Budesonide-Formoterol 160-4.5] 4.5 mcg IH BID 30 Days #1 inh Prednisone 10 mg [Deltasone 10 mg] See Rx Instructions .ROUTE .COMPLEX 6 Days #9 tablet Amlodipine Besylate 5 mg [Norvasc 5 mg] 5 mg PO DAILY 30 Days #30 tablet Continue Lorazepam 1 mg [Ativan 1 MG] 1 mg PO HS Montelukast Sodium 10 mg [Singulair 10 MG] 10 mg PO DAILY Albuterol 2.5 mg/3 ml Neb [Proventil 2.5 mg/3 ml Neb] 2.5 mg IH DAILY PRN PRN PRN Reason: Shortness Of Breath Albuterol 8 gm Mdi Hfa [Ventolin Hfa MDI] 2 puff IH QID Strawberry-3 Fatty Acids/Fish Oil [Fish Oil 1,000 mg Capsule] 1,000 mg PO QID Vitamin E 200 unit PO TID Insulin Aspart [Novolog] See Rx Instructions .ROUTE .COMPLEX Ezetimibe 10 mg [Zetia 10 MG] 10 mg PO DAILY Omeprazole 40 mg PO DAILY Hydrocodone/Acetaminophen [Hydrocodone-Acetamin 10-325 mg] 1 tab PO QID Prednisone 20 mg [Deltasone 20 mg] 20 mg PO DAILY Nitrofurantoin Macro 100 mg [Macrobid 100MG Capsule] 1 tab PO BID Discontinued Fluticasone/Vilanterol [Breo Ellipta 200-25 Mcg Inhalr] 1 puff IH DAILY Additional Instructions: Patient is to go to 's office 12/03/23 @ 8:00 for a Pulmonary Function Test then see INSULATION MACHINE OPERATOR at 9:00 that morning. Follow up with: RACHEL LOFTON FNP [NON-STAFF PHY W/O PRIVILEGES] - 12/03/23 9:00 am JAI AGUERO NP [Primary Care Provider] - 09/11/23 10:00 am
[2023-09-04] MEDS ORDERED: CHLORTHALIDONE PO ONE (16:00)
== END 2023-09-04 12:39 | disposition home or self-care (01) ==
LOC: ED 13:59 → MED SURG 20:10
PROVIDERS: ADMIT Internal Medicine; ATTEND Internal Medicine
DX: J44.1 Chronic obstructive pulmonary disease with (acute) exacerbation (principal); R09.02 Hypoxemia; R06.2 Wheezing; R60.0 Localized edema; D86.2 Sarcoidosis of lung with sarcoidosis of lymph nodes; E11.65 Type 2 diabetes mellitus with hyperglycemia; Z79.4 Long term (current) use of insulin; N39.0 Urinary tract infection, site not specified; F17.200 Nicotine dependence, unspecified, uncomplicated; E83.42 Hypomagnesemia; J18.9 Pneumonia, unspecified organism; E78.5 Hyperlipidemia, unspecified; M79.605 Pain in left leg; M79.89 Other specified soft tissue disorders; I25.2 Old myocardial infarction; Z79.899 Other long term (current) drug therapy; Z20.828 Contact with and (suspected) exposure to other viral communicable diseases
CPT/HCPCS: 0241U; 36000; 36415; 71045; 71260; 80048; 80053; 81001; 82805; 83036; 83605; 83735; 83880; 84484; 85025; 85027; 85379; 85610; 85730; 93005; 93971; 94640; 94760; 96374; 99285; Q3014; 93268; G0378; J0360; J0456; J1650; J2920; J2930; A9270-GY; J3475

== ENCOUNTER 2024-04-23 12:44 | Emergency (ER) | payer MEDICARE ==
[2024-04-23 13:13] VITALS: TEMP 98.2; O2SAT 95
[2024-04-23 13:23] VITALS: BP 153/76; PULSE 85; RESP 34
[2024-04-23] MEDS ORDERED: Zofran 4 MG/2 ML VIAL ONE (13:33)
[2024-04-23] MEDS ORDERED: Sodium Chloride 0.9% 1000 ML 1,000 ML ONE (13:33)
[2024-04-23] MEDS: Zofran 4 MG/2 ML VIAL IV ONE (13:34)
[2024-04-23] MEDS: Sodium Chloride 0.9% 1000 ML 1,000 ML IV STA (13:34)
[2024-04-23 13:36] LABS: Absolute Neutrophil Ct (ANC) 3.39 x10^3/uL (1.56-6.13); BASOPHIL % 0.7 % (0.1-1.2); Basophil (Absolute #) 0.04 x10^3/uL (0.01-0.08); Eosinophil % 2.3 % (0.7-5.8); Eosinophil (Absolute #) 0.14 x10^3/uL (0.04-0.36); Hematocrit 38.3 % (34.1-44.9); IMMATURE GRAN # 0.02 x10^3u/L (0.001-0.031); IMMATURE GRAN % 0.3 % (0.001-0.429); Lymphocyte (Absolute #) 1.76 x10^3/uL (1.18-3.74); Lymphocytes % 29.4 % (19.3-51.7); Mean Corpuscular Hemoglobin 25.7 pg (25.6-32.2); Mean Corpuscular Hgb Concent. 31.3 g/dL (32.2-35.5); Mean Platelet Volume 11.7 fL (9.4-12.3); Monocyte (Absolute #) 0.64 x10^3/uL (0.24-0.86); Monocytes % 10.7 % (4.7-12.5); Neutrophil % 56.6 % (34.0-71.1); Platelet Count 186 x10^3/uL (182-369); Red Blood Count 4.67 x10^6/uL (3.93-5.22); Red Cell Distribution Width 13.1 % (11.7-14.4)
[2024-04-23 13:51] LABS: ALBUMIN 4.1 g/dL (3.5-5.0); ANION GAP 12.4 MEQ/L (5-15); BILIRUBIN,TOTAL 0.6 mg/dL (0.2-1.3); Calcium 8.8 mg/dL (8.4-10.2); Creatinine 1 0.82 mg/dL (0.52-1.04); EST GLOMERULAR FILTRATION RATE 86.6 ML/MIN; Potassium 3.9 mmol/L (3.5-5.1); Total Protein 7.2 g/dL (6.3-8.2)
--- NOTE | 2024-04-23 13:53 | ERPHSYRPT ---
- History of Present Illness Historian: patient Exam Limitations: no limitations Patient Subjective Stated Complaint: C/O diarrhea since 04/17/24. States was having some N/V as well but this has become better since receiving the RX for zofran on Friday. Triage Nursing Assessment: Patient ambulated back to ER with a cane. She is alert and oriented. No SOB. Skin tone normal. GUAMAN WNL. Physician History: Patient is a 53-year-old female with history of diabetes mellitus, hypertension, and morbid obesity that presents to the ER with nausea, vomiting, and diarrhea x 6 days. Patient has generalized abdominal pain described as a burning and is rated 7 out of 10. She denies hematemesis, hematochezia, melena, dysuria, hematuria, dyspnea, cough, and coryza. Patient states that her daughter and her granddaughter have similar symptoms at home. Timing/Duration: other (6 days) Activities at Onset: rest Quality: burning Abdominal Pain Onset Location: generalized abdomen Pain Radiation: no radiation Severity of Pain-Max: moderate Severity of Pain-Current: moderate Modifying Factors: Improves With: nothing Associated Symptoms: denies symptoms Previous symptoms: no prior history Allergies/Adverse Reactions: carisoprodol [From Soma] Allergy (Intermediate, Verified 04/23/24 12:57) aspirin Allergy (Verified 04/23/24 12:57) buprenorphine Allergy (Verified 04/23/24 12:57) codeine [Codeine] Allergy (Verified 04/23/24 12:57) cyclobenzaprine HCl [From Flexeril] Allergy (Verified 04/23/24 12:57) duloxetine [From Cymbalta] Allergy (Verified 04/23/24 12:57) morphine Allergy (Verified 04/23/24 12:57) Penicillins Allergy (Verified 04/23/24 12:57) Sulfa (Sulfonamide Antibiotics) [Sulfa(Sulfonamide Antibiotics)] Allergy (Verified 04/23/24 12:57) glipizide Adverse Reaction (Verified 04/23/24 12:57) metformin Adverse Reaction (Verified 04/23/24 12:57) nicotine [From Nicoderm CQ] Adverse Reaction (Verified 04/23/24 12:57) All ABX except Macrobid & Zithromax Allergy (Uncoded 04/23/24 12:57) Allergic to all muscle relaxers Allergy (Uncoded 04/23/24 12:57) Home Medications: Albuterol 2.5 mg/3 ml Neb [Proventil 2.5 mg/3 ml Neb] 2.5 mg IH DAILY PRN PRN 05/16/14 [History] Lorazepam 1 mg [Ativan 1 MG] 1 mg PO HS 05/16/14 [History] Montelukast Sodium 10 mg [Singulair 10 MG] 10 mg PO DAILY 05/16/14 [History] Albuterol 8 gm Mdi Hfa [Ventolin Hfa MDI] 2 puff IH QID 11/21/16 [History] Caldwell-3 Fatty Acids/Fish Oil [Fish Oil 1,000 mg Capsule] 1,000 mg PO QID 07/25/18 [History] Vitamin E 200 unit PO TID 07/25/18 [History] Insulin Aspart [Novolog] See Rx Instructions .ROUTE .COMPLEX 01/30/21 [History] Ezetimibe 10 mg [Zetia 10 MG] 10 mg PO DAILY 04/21/23 [History] Hydrocodone/Acetaminophen [Hydrocodone-Acetamin 10-325 mg] 1 tab PO QID 08/31/23 [History] Nitrofurantoin Macro 100 mg [Macrobid 100MG Capsule] 1 tab PO BID 08/31/23 [History] Omeprazole 40 mg PO DAILY 08/31/23 [History] Prednisone 20 mg [Deltasone 20 mg] 20 mg PO DAILY 08/31/23 [History] Hx Tetanus, Diphtheria Vaccination/Date Given: Yes Hx Influenza Vaccination/Date Given: No Hx Pneumococcal Vaccination/Date Given: No Immunizations Up to Date: Yes Travel Risk - International Travel Have you traveled outside of the country in past 3 weeks: No - Emerging Infectious Disease Are you exhibiting symptoms associated with any current EIDs: Yes Symptoms: Diarrhea, Fever, Vomitting - Review of Systems Constitutional: No Symptoms Eyes: No Symptoms Ears, Nose, & Throat: No Symptoms Respiratory: No Symptoms Cardiac: No Symptoms Abdominal/Gastrointestinal: Abdominal Pain, Nausea, Vomiting, Diarrhea Genitourinary Symptoms: No Symptoms Musculoskeletal: No Symptoms Skin: No Symptoms Neurological: No Symptoms Psychological: No Symptoms Endocrine: No Symptoms Hematologic/Lymphatic: No Symptoms Immunological/Allergic: No Symptoms - Past Medical History Pertinent Past Medical History: Yes Neurological History: Migraines ENT History: Glaucoma Cardiac History: High Cholesterol, Myocardial Infarction ([place]) Respiratory History: Asthma, Bronchitis, Pneumonia Endocrine Medical History: Diabetes Type I, Liver Disease Musculoskeletal History: Other GI Medical History: Gallbladder Disease, Other History: Other Psycho-Social History: Anxiety, Other Female Reproductive Disorders: No Pertinent History Other Medical History: L SPINE FUSION 2010; Bowel Paralysis, RIGHT RIB FRACTURES, ANEMIA, SARCODOSIS LIVER DISORDER - Past Surgical History Past Surgical History: Yes (VIOLENT DURING SURGERY) Neuro Surgical History: Other Cardiac: No Pertinent History Respiratory: No Pertinent History Gastrointestinal: Cholecystectomy Genitourinary: Other Musculoskeletal: Orthopedic Surgery Female Surgical History: Section, Tubal Ligation Other Surgical History: tumor removed from brain, rt leg cadav, lumbar cadav bones, KIDNEY STONES REMOVED, L SPINE FUSION 2010; R LE SURGERY, Significant Family History: no pertinent family hx - Female History Hx Now: No - Social History Smoking Status: Former smoker How long have you smoked: 22 yrs Exposure to second hand smoke: Yes Drug Use: marijuana Patient Lives Alone: Yes - Social Determinants of Health Will the patient participate in the screening: Yes Do you worry about a steady place to live?: No Do you have any problems with any of the following?: No known problems In the past 12 months,have you had to go without utilities?: No Transportation Issues: No Has anyone in your support network made you feel unsafe?: No Have you or anyone in your house had to go without enough: No - Nursing Vital Signs Nursing Vital Signs: Initial Vital Signs Temperature 98.2 F 04/23/24 12:55 Pulse Rate 82 04/23/24 12:55 Respiratory Rate 21 04/23/24 12:55 Blood Pressure 148/78 04/23/24 12:55 O2 Sat by Pulse Oximetry 95 04/23/24 12:55 Pain Scale Pain Intensity 6 Hypertensive - Physical Exam General Appearance: no apparent distress Eye Exam: PERRL/EOMI, eyes nml inspection Ears, Nose, Throat Exam: normal ENT inspection, TMs normal, pharynx normal, moist mucous membranes Neck Exam: normal inspection, non-tender, supple, full range of motion, No meningismus, No mass, No Brudzinski, No Kernig's Respiratory Exam: normal breath sounds, lungs clear, airway intact, No respiratory distress Cardiovascular Exam: regular rate/rhythm, normal heart sounds, normal peripheral pulses, capillary refill <2 sec, No murmur Gastrointestinal/Abdomen Exam: soft, normal bowel sounds, tenderness ( Mild diffuse without guarding or rebound) Back Exam: normal inspection, normal range of motion Extremity Exam: normal inspection ( baseline per patient) Neurologic Exam: alert, oriented x 3, cooperative, 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 science 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 II-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 nml as tested, normal mood/affect, sensation nml Skin Exam: normal color, warm, dry, No rash Lymphatic Exam: No adenopathy SpO2 Interpretation: normal SpO2: 95 O2 Delivery: Room Air - Course Nursing assessment & vital signs reviewed: Yes Ordered Tests: Active Orders 24 hr Category Date Time Status IV Insertion STAT Care 04/23/24 13:15 Completed AMYLASE Stat Lab 04/23/24 13:35 Completed CBC W DIFF Stat Lab 04/23/24 13:35 Completed CMP Stat Lab 04/23/24 13:35 Completed LIPASE Stat Lab 04/23/24 13:35 Completed Lactic Acid Stat Lab 04/23/24 13:40 Completed TROPONIN Q4H Lab 04/23/24 13:35 Completed Medication Summary Discontinued Medications Generic Name Dose Route Start Last Admin Trade Name Freq PRN Reason Stop Dose Admin Sodium Chloride 1,000 mls @ 999 mls/hr 04/23/24 13:15 04/23/24 14:50 Sodium Chloride 0.9% 1000 Ml IV 04/23/24 14:15 Infused .Q1H1M STA Infusion Sodium Chloride Confirm 04/23/24 13:33 Sodium Chloride 0.9% 1000 Ml Administered 04/23/24 13:34 Dose 1,000 mls @ ud .ROUTE .STK-MED ONE Ondansetron HCl 4 mg 04/23/24 13:15 04/23/24 13:34 Ondansetron Hcl 4 Mg/2 Ml Vial IV 04/23/24 13:16 4 mg STAT ONE Administration Ondansetron HCl Confirm 04/23/24 13:33 Ondansetron Hcl 4 Mg/2 Ml Vial Administered 04/23/24 13:34 Dose 4 mg .ROUTE .STK-MED ONE Lab/Rad Data: Laboratory Result Diagrams 04/23/24 13:35 06/21/24 13:35 Laboratory Results 04/23/24 04/23/24 04/23/24 Range/Units 14:15 14:04 13:40 WBC (3.98-10.04) x10^3/uL RBC (3.93-5.22) x10^6/uL Hgb (11.2-15.7) g/dL Hct (34.1-44.9) % MCV (79.4-94.8) fL MCH (25.6-32.2) pg MCHC (32.2-35.5) g/dL RDW (11.7-14.4) % Plt Count (182-369) x10^3/uL MPV (9.4-12.3) fL Gran % (34.0-71.1) % Immature Gran % (Auto) (0.001-0.429) % Nucleat RBC Rel Count (0.00-0.2) % Eos # (Auto) (0.04-0.36) x10^3/uL Immature Gran # (Auto) (0.001-0.031) x10^3u/L Absolute Lymphs (auto) (1.18-3.74) x10^3/uL Absolute Monos (auto) (0.24-0.86) x10^3/uL Absolute Nucleated RBC (0.00-0.012) x10^3u/L Lymphocytes % (19.3-51.7) % Monocytes % (4.7-12.5) % Eosinophils % (0.7-5.8) % Basophils % (0.1-1.2) % Absolute Granulocytes (1.56-6.13) x10^3/uL Basophils # (0.01-0.08) x10^3/uL Sodium (135-145) mmol/L Potassium (3.5-5.1) mmol/L Chloride (98-107) mmol/L Carbon Dioxide (22-30) mmol/L Anion Gap (5-15) MEQ/L BUN (7-17) mg/dL Creatinine (0.52-1.04) mg/dL Estimated GFR ML/MIN Glucose (74-106) mg/dL Lactic Acid 0.8 (0.4-2.0) Calcium (8.4-10.2) mg/dL Total Bilirubin (0.2-1.3) mg/dL AST (14-36) U/L ALT (0-35) U/L Alkaline Phosphatase (38-126) U/L Troponin I (0.000-0.033) ng/mL Serum Total Protein (6.3-8.2) g/dL Albumin (3.5-5.0) g/dL Amylase (30-110) U/L Lipase (23-300) U/L C. difficile Screen NEGATIVE (NEGATIVE) C.difficile 027-[id number] PRESUMPTIVE NEGATIVE (NEGATIVE) Influenza Type A Ag NEGATIVE (NEGATIVE) Influenza Type B Ag NEGATIVE (NEGATIVE) RSV (PCR) NEGATIVE (NEGATIVE) SARS-CoV-2 (PCR) NEGATIVE (NEGATIVE) 04/23/24 04/23/24 04/23/24 Range/Units 13:35 13:35 13:35 WBC 6.0 (3.98-10.04) x10^3/uL RBC 4.67 (3.93-5.22) x10^6/uL Hgb 12.0 (11.2-15.7) g/dL Hct 38.3 (34.1-44.9) % MCV 82.0 (79.4-94.8) fL MCH 25.7 (25.6-32.2) pg MCHC 31.3 L (32.2-35.5) g/dL RDW 13.1 (11.7-14.4) % Plt Count 186 (182-369) x10^3/uL MPV 11.7 (9.4-12.3) fL Gran % 56.6 (34.0-71.1) % Immature Gran % (Auto) 0.3 (0.001-0.429) % Nucleat RBC Rel Count 0.0 (0.00-0.2) % Eos # (Auto) 0.14 (0.04-0.36) x10^3/uL Immature Gran # (Auto) 0.02 (0.001-0.031) x10^3u/L Absolute Lymphs (auto) 1.76 (1.18-3.74) x10^3/uL Absolute Monos (auto) 0.64 (0.24-0.86) x10^3/uL Absolute Nucleated RBC 0.00 (0.00-0.012) x10^3u/L Lymphocytes % 29.4 (19.3-51.7) % Monocytes % 10.7 (4.7-12.5) % Eosinophils % 2.3 (0.7-5.8) % Basophils % 0.7 (0.1-1.2) % Absolute Granulocytes 3.39 (1.56-6.13) x10^3/uL Basophils # 0.04 (0.01-0.08) x10^3/uL Sodium 138 (135-145) mmol/L Potassium 3.9 (3.5-5.1) mmol/L Chloride 102 (98-107) mmol/L Carbon Dioxide 28 (22-30) mmol/L Anion Gap 12.4 (5-15) MEQ/L BUN 6 L (7-17) mg/dL Creatinine 0.82 (0.52-1.04) mg/dL Estimated GFR 86.6 ML/MIN Glucose 138 H (74-106) mg/dL Lactic Acid (0.4-2.0) Calcium 8.8 (8.4-10.2) mg/dL Total Bilirubin 0.60 (0.2-1.3) mg/dL AST 39 H (14-36) U/L ALT 36 H (0-35) U/L Alkaline Phosphatase 65 (38-126) U/L Troponin I < 0.012 (0.000-0.033) ng/mL Serum Total Protein 7.2 (6.3-8.2) g/dL Albumin 4.1 (3.5-5.0) g/dL Amylase 52 (30-110) U/L Lipase 32 (23-300) U/L C. difficile Screen (NEGATIVE) C.difficile 027-NAP1-B1 (NEGATIVE) Influenza Type A Ag (NEGATIVE) Influenza Type B Ag (NEGATIVE) RSV (PCR) (NEGATIVE) SARS-CoV-2 (PCR) (NEGATIVE) all labs thoroughly reviewed - Progress Progress: improved Progress Note: 04/23/24 19:06 nursing note and vital signs reviewed. No food or housing insecurity is noted. All lab results thoroughly reviewed and shared with patient. Patient given 1 L normal saline bolus and 4 mg IV Zofran with improvement in condition. Serial abdominal exams with soft abdomen and improving mild tenderness to palpation without any guarding or rebound Patient most likely has a viral gastroenteritis as her daughter and granddaughter have similar symptoms. Is most likely the norovirus. Patient f eels much better and is discharged in stable condition with instructions to follow-up with her PCP on Friday return to ER for increasing pain, inability to hold down fluids, or persistent temperature greater 100.5. Patient advised annual symptoms encouraged to come to the ER soon as possible with a CAT scan will be done. Prescription for Compazine 10 g p.o. every 4-6 hours and Bentyl sent to patient's pharmacy. Patient voiced comprehension of discharge instructions. 04/23/24 19:07 04/23/24 19:10 Counseled pt/family regarding: lab results, diagnosis, need for follow-up Medical Desision Making - Diagnostic Testing Diagnostic test were ordered, analyzed, and reviewed by me: Yes - Risk of complications The pt has a mod risk of morbidity or mortality based on: Need for prescription drug management - Departure Departure Disposition: Home Clinical Impression: Viral gastroenteritis Condition: Stable Critical Care Time: No Referrals: JAI AGUERO NP [Primary Care Provider] - Follow up/PCP as directed Instructions: Diarrhea and Traveler's Diarrhea, Adult (DC) Additional Instructions: Fluids Compazine for nausea and vomiting Bentyl as needed for abdominal pain and diarrhea Return to ER for increasing pain, persistent temperature greater 100.5, or sai bility to hold down fluids Advance diet slowly Follow-up with your family MD on Friday. Prescriptions: Prochlorperazine Maleate [Compazine] 10 mg PO Q6H PRN PRN #12 tablet PRN Reason: Nausea/Vomiting Dicyclomine HCl 20 mg [Bentyl 20 mg] 20 mg PO QIDPRN PRN #15 tablet PRN Reason: Pain
[2024-04-23 14:52] LABS: 027 TOX PROD PRESUMPTIVE NEGATIVE (NEGATIVE); TOXIGENIC C. DIFF ORG NEGATIVE (NEGATIVE)
[2024-04-23 14:56] LABS: INFLUENZA A NEGATIVE (NEGATIVE); INFLUENZA B NEGATIVE (NEGATIVE); RESPIRATORY SYNCTIAL VIRUS NEGATIVE (NEGATIVE); SARS-CoV-2 Xpert Express NEGATIVE (NEGATIVE)
== END 2024-04-23 15:24 | disposition home or self-care (01) ==
LOC: ED 12:44
DX: A08.4 Viral intestinal infection, unspecified (principal); R11.2 Nausea with vomiting, unspecified; R10.84 Generalized abdominal pain; E10.9 Type 1 diabetes mellitus without complications; I10 Essential (primary) hypertension; E78.5 Hyperlipidemia, unspecified; Z79.899 Other long term (current) drug therapy
CPT/HCPCS: 0241U; 36000; 36415; 80053; 82150; 83605; 83690; 84484; 85025; 87493; 96360; 96374; 99284; J2405